=== PATIENT | female | born 1980 | race Caucasian/White ===

== ENCOUNTER 2022-10-05 14:59 | Outpatient (OUT) | payer OTHER, SELFPAY ==
--- NOTE | 2022-10-05 15:02 | MM_ITS ---
Patient: BLANCA BROWER. Exam Date: 10/05/2022 : 1980 Gender:F Ordering : DR Lauro York . Admission #: [id number] Family : Order #: [id number] CLICK HERE TO VIEW EXAM RADIOLOGY REPORT PROCEDURE: MM TOMOSYNTHESIS SCREENING BI COMPARISON: None. INDICATIONS: Screening mammogram Z12.31 Calculator Name NCI Breast Cancer Risk Assessment Tool 5 Year Breast Cancer Risk 1.10% Lifetime Breast Cancer Risk 19.30% Personal Breast Cancer No Personal Ovarian Cancer No Treatments None Family Cancers Mother with breast cancer at age 62. LOCATION: [facility] BREAST COMPOSITION: Heterogeneously dense,which may obscure small masses. FINDINGS: DIAGNOSTIC CATEGORY 1--NEGATIVE. Scattered benign-appearing calcifications are present. RIGHT BREAST: No significant suspicious finding. LEFT BREAST: No significant suspicious finding. RECOMMENDATIONS: ROUTINE MAMMOGRAM AND CLINICAL EVALUATION IN 12 MONTHS. PLEASE NOTE: A NORMAL MAMMOGRAM DOES NOT EXCLUDE THE POSSIBILITY OF BREAST CANCER. A CLINICALLY SUSPICIOUS PALPABLE LUMP SHOULD BE BIOPSIED. Dictated by: David Pugh MD on 10/06/2022 at 07:17 Approved by: David Pugh MD on 10/06/2022 at 07:19
--- NOTE | 2022-10-05 15:03 | XR_ITS ---
[address] [address] Patient Name: BLANCA BROWER MRN: [id number] date: 1980 Sex: F Assigned Patient Location: MAMMO Current Patient Location: MAMMO Accession/Order Number: [id number] Exam Date: 10/05/2022 15:24 Report Date: 10/05/2022 15:41 At the request of: DONITA GATES Procedure: XR knee LT 3V EXAM: XR knee LT 3V HISTORY: Left knee chronic pain M25.562 COMPARISON: None. XR/XR knee LT 3V IMPRESSION: 1. No acute fracture or malalignment. 2. Tiny patellar osteophyte. Mild narrowing of the medial femoral tibial compartment with tiny osteophytes. 3. No articular erosions. 4. No joint effusion. Electronically authenticated by: CHANTAL CAMPBELL Date: 10/05/2022 15:41
[2022-10-05 15:51] LABS: Estimated Average Glucose 148 mg/dL; Glycohemoglobin A1C 6.8 % (4.5-6.2)
[2022-10-05 16:10] LABS: Microalbumin Urine Random <1.3 mg/dL (<=30.0)
== END 2022-10-05 15:00 | disposition home or self-care (01) ==
LOC: MAMMO 14:59
PROVIDERS: PCP Family Medicine; Visit Provider Family Medicine
DX: E11.65 Type 2 diabetes mellitus with hyperglycemia (principal); Z79.4 Long term (current) use of insulin; Z12.31 Encounter for screening mammogram for malignant neoplasm of breast; Z80.3 Family history of malignant neoplasm of breast; M25.562 Pain in left knee
CPT/HCPCS: 36415; 73562; 77063; 77067; 82043; 83036

== ENCOUNTER 2023-05-11 12:46 | Outpatient (OUT) | payer OTHER, SELFPAY ==
[2023-05-11 13:15] LABS: Basophils Percent Auto 0.8 % (0.2-2.0); Eosinophils Absolute Auto 0.1 10^3/uL (0.0-0.7); Eosinophils Percent Auto 1.7 % (0.9-7.0); Hematocrit 38.3 % (36.0-48.0); Hemoglobin 13.4 g/dL (12.0-16.0); Immature Granulocytes Abs Auto 0.01 10^3/uL (0.00-0.03); Immature Granulocytes Pct Auto 0.3 % (0.0-0.5); Lymphocytes Absolute Auto 1.5 10^3/uL (1.2-3.8); Lymphocytes Percent Auto 40.8 % (20.5-60.0); Mean Corpuscular Hemoglobin 27.9 pg (26.7-34.0); Mean Corpuscular Volume 79.6 fL (81.0-99.0); Mean Platelet Volume 8.9 fL (9.5-13.5); Monocytes Absolute Auto 0.4 10^3/uL (0.3-0.8); Monocytes Percent Auto 10.7 % (1.7-12.0); Neutrophils Absolute Auto 1.6 10^3/uL (1.4-6.5); Neutrophils Percent Auto 45.7 % (43.0-75.0); Platelet Count 220 10^3/uL (150-450); Red Blood Count 4.81 10^6/uL (4.20-5.40); Red Cell Distribution Width 12.7 % (11.0-15.0); White Blood Count 3.6 10^3/uL (4.0-11.0)
[2023-05-11 13:43] LABS: Estimated Average Glucose 223 mg/dL; Glycohemoglobin A1C 9.4 % (4.5-6.2)
[2023-05-11 14:51] LABS: Alanine Aminotransferase 43 U/L (14-59); Albumin Globulin Ratio 1.1; Albumin Level 3.7 g/dL (3.4-5.0); Alkaline Phosphatase 50 U/L (46-116); Anion Gap 15.1; Aspartate Amino Transferase 24 U/L (15-37); BUN Creatinine Ratio 18.9; Bilirubin Direct 0.1 mg/dL (0.0-0.2); Bilirubin Total 0.6 mg/dL (0.2-1.0); Calcium 9.3 mg/dL (8.5-10.1); Carbon Dioxide 25.1 mmol/L (21.0-32.0); Chloride 101 mmol/L (98-107); Chol HDL Ratio 5.8; Cholesterol 227 mg/dL (<=200); Estimated GFR (African America >60 (>=60); Estimated GFR (Non-African Ame >60 (>=60); Globulin 3.3 g/dL; Glucose 233 mg/dL (74-106); HDL Cholesterol 39 mg/dL (40-60); Potassium 4.2 mmol/L (3.5-5.1); Sodium 137 mmol/L (136-145); Thyroid Stimulating Hormone 2.492 uIU/mL (0.358-3.740); Triglycerides 398 mg/dL (<=150); VLDL CHOLESTEROL 79.6 mg/dL
== END 2023-05-11 12:47 | disposition home or self-care (01) ==
LOC: LAB 12:46
PROVIDERS: PCP Family Medicine; Visit Provider Family Medicine
DX: Z00.00 Encounter for general adult medical examination without abnormal findings (principal)
CPT/HCPCS: 36415; 80048; 80061; 80076; 83036; 84443; 85025

== ENCOUNTER 2023-10-26 07:48 | Outpatient (OUT) | payer OTHER, SELFPAY ==
[2023-10-26 09:25] LABS: Microalbumin Urine Random 2.1 mg/dL (<=30.0)
[2023-10-26 10:17] LABS: Estimated Average Glucose 169 mg/dL; Glycohemoglobin A1C 7.5 % (4.5-6.2)
== END 2023-10-26 07:49 | disposition home or self-care (01) ==
LOC: LAB 07:48
PROVIDERS: PCP Family Medicine; Visit Provider Family Medicine
DX: E11.65 Type 2 diabetes mellitus with hyperglycemia (principal); Z79.4 Long term (current) use of insulin
CPT/HCPCS: 36415; 82043; 83036

== ENCOUNTER 2024-05-23 11:29 | Outpatient (OUT) | payer OTHER, SELFPAY ==
--- OUTSIDE RECORDS SUMMARY | 2024-05-23 11:34 | XMS_ITS | CCD ---
Author Organization [facility] Care Team Providers Care Pipeline Systems Operator Name Role Phone DAYSI DIETZ Unavailable Unavailable GURPREET, DAYSI Unavailable Unavailable Latisha Esqueda Unavailable Marsha Mendez Unavailable GURPREET ., DR TAVAREZ Admitting Unavailable GURPREET ., DR TAVAREZ Attending Unavailable REQUEST, DR PUENTE LISTED Primary Care Unavaila ble GURPREET ., DR TAVAREZ Consulting Unavailable GURPREET ., DR TAVAREZ Admitting Unavailable GURPREET ., DR TAVAREZ Attending Unavailable REQUEST, DR NONE LISTED Primary Care Unavaila ble GURPREET ., DR TAVAREZ Consulting Unavailable ZIEBER, DR LONG Collins Consulting Unavailable WEST, DR RUBI Comer Admitting Unavailable WEST, DR RUBI Comer Attending Unavailable NADERER, DR LAURO Trejo Primary Care Unavailable WEST, DR RUBI Comer Consulting Unavailable NADERER, DR LAURO Trejo Admitting Unavailable NADERER, DR LAURO Trejo Attending Unavailable NADERER, DR LAURO Trejo Primary Care Unavailable NADERER, DR LAURO Trejo Consulting Unavailable NADERER, DR LAURO Trejo Admitting Unavailable NADERER, DR LAURO Trejo Attending Unavailable NADERER, DR LAURO Trejo Primary Care Unavailable NADERER, DR LAURO Trejo Consulting Unavailable NADERER, DR LAURO Trejo Admitting Unavailable NADERER, DR LAURO Trejo Attending Unavailable NADERER, DR LAURO Trejo Primary Care Unavailable ZIEBER, DR LONG Collins Consulting Unavailable NADERER, DR LAURO Trejo Consulting Unavailable WEST, DR RUBI Comer Admitting Unavailable WEST, DR RUBI Comer Attending Unavailable NADERER, DR LAURO Trejo Primary Care Unavailable WEST, DR RUBI Comer Consulting Unavailable ZIEBER, DR LONG Collins Consulting Unavailable WEST, DR RUBI Comer Admitting Unavailable WEST, DR RUBI Comer Attending Unavailable NADERER, DR LAURO Trejo Primary Care Unavailable WEST, DR RUBI Comer Consulting Unavailable KARASIK ., DR HERNANDEZ Admitting Unavailabl e KARASIK ., DR HERNANDEZ Attending Unavailabl e KARASIK ., DR HERNANDEZ Consulting Unavailabl e REQUEST, DR NONE LISTED Primary Care Unavaila ble REQUEST, DR NONE LISTED Primary Care Unavaila ble KARASIK ., DR HERNANDEZ Admitting Unavailabl e KARASIK ., DR HERNANDEZ Attending Unavailabl e KARASIK ., DR HERNANDEZ Consulting Unavailabl e GURPREET ., DR TAVAREZ Consulting Unavailable ZIEBER, DR LONG Collins Consulting Unavailable GURPREET ., DR TAVAREZ Admitting Unavailable GURPREET ., DR TAVAREZ Attending Unavailable REQUEST, DR NONE LISTED Primary Care Unavaila ble GURPREET ., DR TAVAREZ Consulting Unavailable REQUEST, DR NONE LISTED Primary Care Unavaila ble GURPREET ., DR TAVAREZ Consulting Unavailable KARASIK ., DR HERNANDEZ Admitting Unavailabl e KARASIK ., DR HERNANDEZ Attending Unavailabl e ZIEBER, DR LONG Collins Consulting Unavailable REQUEST, DR NONE LISTED Primary Care Unavaila ble KARASIK ., DR HERNANDEZ Admitting Unavailabl e KARASIK ., DR HERNANDEZ Attending Unavailabl e KARASIK ., DR HERNANDEZ Consulting Unavailabl e GURPREET ., DR TAVAREZ Admitting Unavailable GURPREET ., DR TAVAREZ Attending Unavailable REQUEST, DR NONE LISTED Primary Care Unavaila ble WEST, DR RUBI Comer Consulting Unavailable GURPREET ., DR TAVAREZ Consulting Unavailable WEST, DR RUBI Comer Admitting Unavailable WEST, DR RUBI Comer Attending Unavailable NADERER, DR LAURO Trejo Primary Care Unavailable WEST, DR RUBI Comer Consulting Unavailable ZIEBER, DR LONG Collins Consulting Unavailable REQUEST, DR NONE LISTED Primary Care Unavaila ble LAMAR, SANCHEZ Admitting Unavailable LAMAR, SANCHEZ Attending Unavailable GURPREET ., DR TAVAREZ Admitting Unavailable GURPREET ., DR TAVAREZ Attending Unavailable REQUEST, DR NONE LISTED Primary Care Unavaila ble GURPREET ., DR TAVAREZ Consulting Unavailable ZIEBER, DR LONG Collins Consulting Unavailable GURPREET ., DR TAVAREZ Admitting Unavailable GURPREET ., DR TAVAREZ Attending Unavailable GURPREET ., DR TAVAREZ Primary Care Unavailable GURPREET ., DR TAVAREZ Consulting Unavailable GURPREET ., DR TAVAREZ Admitting Unavailable GURPREET ., DR TAVAREZ Attending Unavailable REQUEST, DR NONE LISTED Primary Care Unavaila ble WEST, DR RUBI Comer Consulting Unavailable GURPREET ., DR TAVAREZ Consulting Unavailable WEST, DR RUBI Comer Admitting Unavailable WEST, DR RUBI Comer Attending Unavailable NADEREDennis, DR LAURO Trejo Primary Care Unavailable WEST, DR RUBI Comer Consulting Unavailable WEST, DR RUBI Comer Admitting Unavailable WEST, DR RUBI Comer Attending Unavailable NADEREDennis, DR LAURO Trejo Primary Care Unavailable WEST, DR RUBI Comer Consulting Unavailable ZIEBER, DR LONG Collins Consulting Unavailable WEST, DR RUBI Comer Admitting Unavailable WEST, DR RUBI Comer Attending Unavailable KODY, DR LAURO Trejo Primary Care Unavailable WEST, DR RUBI Comer Consulting Unavailable KODY, DR LAURO Trejo Primary Care Unavailable REINECK, DR JOSE Crum Admitting Unavailabl e REINECK, DR JOSE Crum Attending Unavailabl e REINECK, DR JOSE Crum Consulting Unavailabl e WEST, DR RUBI Comer Consulting Unavailable GURPREET ., DR TAVAREZ Admitting Unavailable GURPREET ., DR TAVAREZ Attending Unavailable NADERER, DR LAURO Trejo Primary Care Unavailable GURPREET ., DR TAVAREZ Consulting Unavailable AGUBOSIM, KAR Consulting Unavailable GURPREET ., DR TAVAREZ Procedure Practitioner Unavail able GURPREET ., DR TAVAREZ Admitting Unavailable GURPREET ., DR TAVAREZ Attending Unavailable REQUEST, DR CINDI LISTED Primary Care Unavaila ble WEST, DR RUBI Comer Consulting Unavailable GURPREET ., DR TAVAREZ Consulting Unavailable WEST, DR RUBI Comer Admitting Unavailable WEST, DR RUBI Comer Attending Unavailable NADERER, DR LAURO Trejo Primary Care Unavailable WEST, DR RUBI Comer Consulting Unavailable Henrikr Lauro ARMSTRONG Primary Care Provider KODY, LAURO Attending Unavailable NADERER, LAURO Attending Unavailable NADERER, LAURO Attending Unavailable NADERER, LAURO Attending Unavailable Medications Current Medications Medication Drug Class(es) Dates Sig (Normalized) Sig (Original) [id number] 200 actuat albuterol 0.09 mg/actuat metered dose inhaler (2 sources) beta2-Adrenergic Agonist Start: 03-20-2023 take 1 puff(s) by inhalation four times daily Albuterol Sulfate Active 2 PUFF INHALATION Four times daily 8.5 March 20, 2023 12:00am Start: 11-04-2020 take 2 puff(s) by in halation every four hours as needed Albuterol Sulfate HFA 108 (90 Base) MCG/ACT 2 puffs as needed Inhalation every 4 hrs 30 Oct, 2020 Active amoxicillin 875 mg oral tablet (1 source) Penicillin-class Antibacterial Start: 11-04-2020 take 1 tablet by mouth every twelve hours Amoxicillin 875 MG 1 tablet Orally every 12 hrs for 7 days Oct, Active azithromycin 250 mg oral tablet (3 sources) Macrolide Antimicrobial Start: 03-20-2023 take 2 tablets by mouth once daily, then take 1 tablet by mouth once daily Azithromycin (Zithromax Z-Trevor) 250 mg tablet Active 250 MG PO Daily 6 5 March 20, 2023 12:00am take 2 tabs today and 1 daily for the next 4 days Start: 04-24-2022 Azithromycin 2 50 MG 2 tablet on the first day, then 1 tablet daily for 4 days Orally Once a day for 5 day(s) Apr, Active benzonatate 200 mg oral capsule (1 source) Non-narcotic Antitussive Start: 03-20-2023 Benzonatate Active 200 MG PO 2-3 TIMES PER DAY March 20, 2023 12:00am Calcium (1 source) Phosphate Binder, Calcium Calcium Active docosahexaenoic acid 144 mg / eicosapentaenoic acid 216 mg / vitamin e 2 unt oral capsule (1 source) Start: 03-20-2023 take 1 capsule by mouth once daily [place]-3 Fatty Acids-Fish Oil (Fish Oil) 360-1,200 mg capsule Active 1 CAP PO Daily March 20, 2023 12:00am Fish Oils (3 sources) Fish Oil Active glipiZIDE 10 mg oral tablet (9 sources) Sulfonylurea Start: 09-13-2023 take 2 tablets by mouth twice daily glipiZIDE (Glucotrol) 10 MG tablet Indications: Type 2 diabetes mellitus with hyperglycemia (CMS/HCC) TAKE 2 TABLETS BY MOUTH TWICE A DAY 360 tablet 3 09/13/2023 Active Start: 03-20-2023 take 10 mg by mouth once daily Glipizide Active 10 MG PO Daily March 20, 2023 12:00am 3 ml insulin aspart, human 100 unt/ml pen injector (2 sources) Insulin Analog NovoLOG FlexPen 100 UNIT/ML as directed Subcutaneous 20-30 units three times a day Active 3 ml insulin glargine 100 unt/ml pen injector (12 sources) Insulin Analog Start: 04-14-2024 insulin glargine (Lantus SoloStar) 100 UNIT/ML pen Indications: Type 2 diabetes mellitus with hyperglycemia (CMS/HCC) INJECT 40 UNITS UNDER THE SKIN IN THE MORNING. 45 mL 5 04/14/2024 Active Start: 05-14-2023 End: 04-14-2024 insulin glargine (Lantus Andreina oStar) 100 UNIT/ML pen Indications: Type 2 diabetes mellitus with hyperglycemia (CMS/HCC) Inject 50 Units under the skin Daily 5 each 5 05/14/2023 04/14/2024 Discontinued Start: 03-20-2023 Insulin Glargi ne (Basaglar Kwikpen U-100 Insulin) 100 unit/mL (3 mL) insulin pen Active UNIT SUBCUT March 20, 2023 12:00am FreeTextSig: as directed Subcutaneous 40 units a day; Note: Source Status: Taking; Provider: Royal Campos ( ) Basaglar KwikPen 100 UNIT/ML as directed Subcutaneous 40 units a day Active levoFLOXacin 750 mg oral tablet (2 sources) Quinolone Antimicrobial Start: 01-22-2024 End: 01-29-2024 take 1 tablet by mouth once daily levoFLOXacin (Levaquin) 750 MG tablet Indications: Acute bronchitis due to other specified organisms Take 1 tablet (750 mg) by mouth Daily for 7 days 7 tablet 01/22/2024 01/29/2024 Active metFORMIN hydrochloride 500 mg oral tablet (12 sources) Biguanide Start: 09-13-2023 take 2 tablets by mouth twice daily metFORMIN (Glucophage) 500 MG tablet Indications: Type 2 diabetes mellitus with hyperglycemia (CMS/HCC) TAKE 2 TABLETS BY MOUTH TWICE A DAY 360 tablet 3 09/13/2023 Active Start: 03-20-2023 take 500 mg by mouth twice daily at mealtime Metformin Active 500 MG PO Twice daily with meals March 20, 2023 12:00am take 1 tablet by aleah th every twelve hours metFORMIN HCl 1000 MG 1 tablet with meals Orally Twice a day for 30 day(s) Active methylPREDNISolone 4 mg oral tablet (1 source) Corticosteroid Start: 11-04-2020 methylPREDNISolone 4 MG as directed Orally Once a day for 6 days Oct, Active Multivitamin preparation (1 source) Start: 03-20-2023 take 1 tablet by mouth once daily Multivitamin Active 1 TAB PO Daily March 20, 2023 12:00am Multivitamins (3 sources) Multivitamins as directed Orally Active nabumetone 500 mg oral tablet (9 sources) Nonsteroidal Anti-inflammatory Drug Start: 03-16-2023 take 1 tablet by mouth twice daily nabumetone (Relafen) 500 MG tablet Indications: Pain in left knee , Pain in joint, lower leg TAKE 1 TABLET BY MOUTH TWICE A DAY 60 tablet 5 10/24/2023 Active NIFEdipine 60 mg osmotic 24 hr extended release oral tablet (11 sources) Dihydropyridine Calcium Channel Shan Start: 11-29-2023 take 1 tablet by mouth once daily NIFEdipine XL (Procardia XL) 60 MG 24 hr tablet Indications: Essential hypertension, benign (CMS/HCC) Take 1 tablet (60 mg) by mouth Daily Do not crush, chew, or split. 90 tablet 01/23/2024 Active Start: 09-17-2023 NIFEdipine XL (Procardia XL) 60 MG 24 hr tablet Indications: Essential hypertension, benign (CMS/HCC) TAKE 1 TABLET DAILY . DO NOT CRUSH, CHEW OR SPLIT 90 tablet 09/17/2023 Active Start: 03-20-2023 take 1 tablet by aleah th once daily Nifedipine Active 1 TAB PO Daily March 20, 2023 12:00am FreeTextSi tablet on an empty stomach Orally Once a day; Note: Source Status: Taking; Provider: Royal Campos ( ) take 1 tablet by aleah th every twenty-four hours NIFEdipine ER 30 MG 1 tablet on an empty stomach Orally Once a day Active oseltamivir 75 mg oral capsule (1 source) Neuraminidase Inhibitor Start: 04-15-2019 take 1 capsule by mouth every twelve hours Tamiflu 75 MG 1 capsule Orally Twice a day for 5 day(s) Apr, Active predniSONE 20 mg oral tablet (1 source) Start: 03-20-2023 take 20 mg by mouth twice daily Prednisone Active 20 MG PO Twice daily 10 March 20, 2023 12:00am Semaglutide, 2 MG/DOSE, (Ozempic, 2 MG/DOSE,) 8 MG/3ML solution pen-injector (3 sources) Start: 01-22-2024 inject 2 mg by subcutaneous injection every week Semaglutide, 2 MG/DOSE, (Ozempic, 2 MG/DOSE,) 8 MG/3ML solution pen-injector Indications: Type 2 diabetes mellitus with hyperglycemia, with long-term current use of insulin (CMS/HCC) Inject 2 mg under the skin 1 (one) time per week 3 mL 5 01/22/2024 Active SITagliptin 100 mg oral tablet (1 source) Dipeptidyl Peptidase 4 Inhibitor take 1 tablet by mouth every twenty-four hours Januvia 100 MG 1 tablet Orally Once a day for 30 day(s) Active vitamin B12 (1 source) Vitamin B12 Vitamin B12 Active Zinc (1 source) Zinc Active Completed/Discontinued Medications Medication Drug Class(es) Dates Sig (Normalized) Sig (Original) 0.25 mg, 0.5 mg dose 1.5 ml semaglutide 1.34 mg/ml pen injector (3 sources) Start: 08-02-2023 End: 10-23-2023 semaglutide (Ozempic, 0.25 or 0.5 MG/DOSE,) 2 MG/1.5ML solution pen-injector Indications: Type 2 diabetes mellitus with hyperglycemia, with long-term current use of insulin (CMS/HCC) 0.25 mg SC weekly x 4 weeks, then 0.5 mg weekly 1 each 08/02/2023 10/23/2023 Discontinued semaglutide (Ozempic, 1 MG/DOSE,) 4 MG/3ML solution pen-injector (6 sources) Start: 10-23-2023 End: 01-22-2024 inject 1 mg by subcutaneous injection every week semaglutide (Ozempic, 1 MG/DOSE,) 4 MG/3ML solution pen-injector Indications: Type 2 diabetes mellitus with hyperglycemia, with long-term current use of insulin (CMS/HCC) Inject 1 mg under the skin 1 (one) time per week 1 each 5 10/23/2023 01/22/2024 Discontinued Start: 10-23-2023 inject 1 mg by subcu taneous injection every week semaglutide (Ozempic, 1 MG/DOSE,) 4 MG/3ML solution pen-injector Indications: Type 2 diabetes mellitus with hyperglycemia, with long-term current use of insulin (CMS/HCC) Inject 1 mg under the skin 1 (one) time per week 1 each 5 10/23/2023 Active Problems Active Problems Problem Classification Problem Date Documented Da te Episodic/Chronic Acute bronchitis (5 sources) Acute infective bronchitis; Translations: [Acute bronchitis due to other specified organisms] Onset: 01-22-2024 01-22-2024 Episodic Chronic obstructive pulmonary disease and bronchiectasis (4 sources) Bronchitis; Translations: [Bronchitis, not specified as acute or chronic] Onset: 11-04-2020 Resolved: 11-04-2020 Episodic Diabetes mellitus with complications (17 sources) Type 2 diabetes mellitus with hyperglycemia; Translations: [Hyperglycemia due to type 2 diabetes mellitus] Onset: 12-05-2021 Chronic Diabetes mellitus without complication (4 sources) Type 2 diabetes mellitus without complication; Translations: [Diabetes mellitus without mention of complication, type II or unspecified, not stated as uncontrolled] 03-20-2023 Chronic Diabetes or abnormal glucose tolerance complicating ; childbirth; or the puerperium (5 sources) Unspecified pre-existing diabetes mellitus in childbirth; Translations: [Pre-existing type 2 diabetes mellitus, in , third trimester] Onset: 08-19-2021 Chronic Disorders of lipid metabolism (12 sources) Mixed hyperlipidemia; Translations: [Hyperlipidemia, mixed] Onset: 03-27-2023 03-20-2023 Chronic Esophageal disorders (9 sources) Gastro-esophageal reflux disease without esophagitis; Translations: [Gastroesophageal reflux disease] Onset: 09-26-2021 03-27-2023 Chronic Essential hypertension (16 sources) Hypertensive disorder; Translations: [Hypertension, unspecified] Onset: 03-27-2023 03-20-2023 Chronic Hypertension complicating ; childbirth and the puerperium (3 sources) Unspecified pre-existing hypertension complicating , third trimester; Translations: [Unspecified maternal hypertension, complicating childbirth] Onset: 09-12-2021 Chronic Immunity disorders (2 sources) Secondary immune deficiency disorder; Translations: [Immunodeficiency due to conditions classified elsewhere ([facility])] 10-23-2023 Chronic Other complications of ; puerperium affecting management of mother (1 source) Obesity complicating childbirth; Translations: [OBESITY COMPLICATING CHILDBIRTH] Onset: 09-26-2021 Chronic Other nutritional; endocrine; and metabolic disorders (1 source) Morbid (severe) obesity due to excess calories; Translations: [MORBID SEVERE OBES D/T EXCESS DANIELA] Onset: 09-26-2021 Chronic Other nutritional; endocrine; and metabolic disorders (5 sources) Morbid obesity; Translations: [Morbid (severe) obesity due to excess calories] Onset: 03-27-2023 03-27-2023 Chronic Other nutritional; endocrine; and metabolic disorders (5 sources) Severe obesity; Translations: [Class 3 severe obesity due to excess calories with serious comorbidity and body mass index (BMI) of 45.0 to 49.9 in adult ([facility])] Onset: 03-27-2023 01-22-2024 Chronic Other upper respiratory infections (1 source) Acute pharyngitis, unspecified Episodic Otitis media and related conditions (3 sources) Otitis media, unspecified, left ear; Translations: [Otitis media, unspecified, right ear] Onset: 11-04-2020 Resolved: 11-04-2020 Episodic Unclassified (1 source) CONTACT W/AND (SUSP) EXPOS COVID-19; Translations: [CONTACT W/AND (SUSP) EXPOS COVID-19] Onset: 09-26-2021 Varicose veins of lower extremity (4 sources) Varicose veins of bilateral lower extremities with pain; Translations: [VARICOSE VNS TAO LOW EXTREM W/PAIN] Onset: 04-26-2022 Episodic Past or Other Problems Problem Classification Problem Date Documented Da te Episodic/Chronic Diabetes or abnormal glucose tolerance complicating ; childbirth; or the puerperium (8 sources) Gestational diabetes mellitus in , insulin controlled; Translations: [Gestational diabetes mellitus in , unspecified control] Onset: 2 Episodic Immunizations and screening for infectious disease (3 sources) Contact with and (suspected) exposure to other viral communicable diseases; Translations: [Encounter for screening for human papillomavirus (HPV)] Onset: 1 Resolved: 1 Episodic Malposition; malpresentation (1 source) Maternal care for high head at term, not applicable or unspecified; Translations: [MATERNAL CARE HIGH HEAD TERM NA/UNS] Onset: 2 Episodic Other aftercare (1 source) snf (current) use of insulin; Translations: [CUSTODIAL CURRENT USE OF INSULIN] Onset: 2 Episodic Other aftercare (1 source) Other correction (current) drug therapy; Translations: [OTH CUSTODIAL CURRENT DRUG THERAPY] Onset: 2 Episodic Other complications of ; puerperium affecting management of mother (1 source) Diseases of the digestive system complicating childbirth; Translations: [DZ DIGESTIVE SYSTEM COMP CHILDBIRTH] Onset: 2 Episodic Other complications of ; puerperium affecting management of mother (1 source) Streptococcus B carrier state complicating childbirth; Translations: [STREP B EUCEDA STATE COMP CHILDBIRTH] Onset: 2 Episodic Other complications of (1 source) Maternal care for excessive growth, third trimester, not applicable or unspecified; Translations: [MAT CARE EXCSS FTL GRTH 3RD TRI UNS] Onset: 2 Episodic Other connective tissue disease (3 sources) Other specified soft tissue disorders; Translations: [OTHER SPEC SOFT TISSUE DISORDERS] Onset: 2 Episodic Other female genital disorders (1 source) Other specified noninflammatory disorders of vagina; Translations: [OTH SPEC NONINFLAMMATORY D/O VAGINA] Onset: 2 Episodic Other non-traumatic joint disorders (8 sources) Pain in left knee; Translations: [Pain in joint, lower leg] Onset: 4 03-27-2023 Episodic Other and delivery including normal (1 source) Single live ; Translations: [SINGLE LIVE ] Onset: 2 Episodic Other screening for suspected conditions (not mental disorders or infectious disease) (8 sources) Encounter for screening for Streptococcus B; Translations: [Encounter for screening for malignant neoplasm of cervix] Onset: 2 Episodic Phlebitis; thrombophlebitis and thromboembolism (20 sources) Phlebitis and thrombophlebitis of superficial vessels of lower extremities, bilateral; Translations: [Phlebitis and thrombophlebitis of superficial vessels of right lower extremity] Onset: 3 Episodic Polyhydramnios and other problems of amniotic cavity (1 source) Polyhydramnios, third trimester, not applicable or unspecified; Translations: [POLYHYDRAMNIOS THIRD TRI NA/UNS] Onset: 2 Episodic Residual codes; unclassified (4 sources) Localized edema; Translations: [LOCALIZED EDEMA] Onset: 2 Episodic Residual codes; unclassified (1 source) 37 weeks gestation of ; Translations: [37 WEEKS GESTATION OF ] Onset: 2 Episodic Residual codes; unclassified (1 source) 36 weeks gestation of ; Translations: [36 WEEKS GESTATION OF ] Onset: 2 Episodic Residual codes; unclassified (1 source) 35 weeks gestation of ; Translations: [35 WEEKS GESTATION OF ] Onset: 2 Episodic Residual codes; unclassified (1 source) 34 weeks gestation of ; Translations: [34 WEEKS GESTATION OF ] Onset: 2 Episodic Residual codes; unclassified (1 source) 33 weeks gestation of ; Translations: [33 WEEKS GESTATION OF ] Onset: 2 Episodic Residual codes; unclassified (1 source) 32 weeks gestation of ; Translations: [32 WEEKS GESTATION OF ] Onset: 2 Episodic Residual codes; unclassified (1 source) 31 weeks gestation of ; Translations: [31 WEEKS GESTATION OF ] Onset: 2 Episodic Residual codes; unclassified (8 sources) Bilateral lower limb edema; Translations: [Localized edema] Onset: 4 03-27-2023 Episodic Results Test Name Value Interpretation Reference Range Facility [facility] MICROALBUMIN, RAND URon 10-26-2023 MICROALBUMIN URINE RANDOM 2.1 mg/dL NINF - 30.0 mg/dL [facility] VC CONSULT FOLLOWUP Patient: MICKIE BRENNAN Exam Date: 05/01/2022 : 1980 Gender:F Ordering : DR RUBI JACKSON M.D. Admission #: [id number] Family : Order #: [id number] CLICK HERE TO VIEW EXAM RADIOLOGY REPORT PROCEDURE: VEIN CENTER CONSULTATION FOLLOWUP VEIN CENTER - OFFICE VISIT FOLLOW UP COMPARISON: VC CONSULT FOLLOWUP, 04/12/2022. PROGRESS NOTES: The patient reports improvement in leg symptoms. There has been interval reduction in varicosities. The patient has followed our recommendations to walk 20-30 minutes once or twice per day since the procedure. Physical exam demonstrates marked decrease in the previously seen varicosities of the right and left leg. No persistent varicosities are identified along the right or left leg. Review of the ultrasound performed the same day demonstrates occlusive thrombus extending throughout the treated vein, see separate report, consistent with a successful ablation. No thrombus extending into or beyond the saphenofemoral junction. No significant remaining dilated veins. No further treatment will be provided at this time. Patient will follow-up as needed. IMPRESSION: 1. Successful ablation of the treated branch saphenous veins PLAN: No further treatment at this time. Patient will follow-up in the future as needed. Nurse notes, history and physical were reviewed and confirmed, see attached forms. The nurse was present throughout the physical exam and consultation Dictated by: Long Pierre M.D. on 05/01/2022 at 15:13 Approved by: Long Pierre M.D. on 05/01/2022 at 15:15 Normal [facility] VC EXT VENOUS TAO LIMITEDon 05-01-2022 VC EXT VENOUS TAO LIMITED Patient: MICKIE BRENNAN. Exam Date: 05/01/2022 : 1980 Gender:F Ordering : DR RUBI JACKSON M.D. Admission #: [id number] Family : Order #: [id number] CLICK HERE TO VIEW EXAM RADIOLOGY REPORT PROCEDURE: VEIN CENTER EXTREMITY VENOUS BILATERAL LIMITED COMPARISON: None. INDICATIONS: Phlebitis and thrombophlebitis of superficial veins of bilateral lower extremities I80.03 TECHNIQUE: Lower extremity raman scale and Duplex Doppler evaluation of the deep venous system from the inguinal ligament through the calf veins. FINDINGS: REGION: Right lower extremity. THROMBI: None. COMPRESSIBILITY: Normal compressibility. FLOW: Areas on no flow. OTHER: Patent varicose vein mid posterior calf measures 2.8 mm. REGION: Left lower extremity. THROMBI: Acute occlusive thrombus. Chemically induced thrombus in multiple varicose veins in left leg. Thrombus extends into lumber tailer mid lower leg 2.5 cm from PTV. COMPRESSIBILITY: Non-compressible segments. FLOW: Areas on no flow. OTHER: Patent varicose vein proximal posterior calf measures 2.6 mm. Varicosity mid posterior calf measures 3.2 mm. Distal anterior thigh varicose vein measures 3.9 mm. CONCLUSION: 1. Clearing of previously seen thrombus within right posterior tibial veins. 2. Successful occlusion of treated branch saphenous varicosities within left leg. 3. No significant remaining dilated/incompetent varicose veins. Dictated by: Long Pierre M.D. on 05/01/2022 at 15:10 Approved by: Long Pierre M.D. on 05/01/2022 at 15:13 Normal [facility] VC INJ FOAM SCLERO W US MLTI on 04-26-2022 VC INJ FOAM SCLERO W US MLTI Patient: MICKIE BRENNAN Exam Date: 04/26/2022 : 1980 Gender:F Ordering : DR RUBI JACKSON M.D. Admission #: [id number] Family : Order #: [id number] CLICK HERE TO VIEW EXAM RADIOLOGY REPORT PROCEDURE: VEIN CENTER INJECTION FOAM SCLEROSING SOLUTION WITH ULTRASOUND MULTIPLE VEINS COMPARISON: VC INJ FOAM SCLERO W US MLTI, 04/06/2022. Pre-operative Diagnosis: CEAP class C3 venous insufficiency with pain, tenderness, edema and incompetent left great saphenous vein and varicose veins, chronic venous insufficiency left leg secondary to venous incompetence Post-operative Diagnosis: CEAP class C3 venous insufficiency with pain, tenderness, edema and incompetent left great saphenous vein and varicose veins, chronic venous insufficiency left leg secondary to venous incompetence Procedure Performed: 1. Ultrasound-guided microfoam chemical ablation with Varithena(r) 2. Intraoperative ultrasound guidance Physician: Rubi Jackson M.D. Anesthesia: None Indications for Procedure: 41-year-old female presents with a 1 year history of lower extremity pain swelling and itching. The patient failed conservative medical therapy including medical compression stockings, exercise and analgesics. Prior procedures include intravenous laser ablation. Multiple incompetent varicosities of the left leg. Duplex scan showed reflux and enlarged diameters up to 7 mm. The patient underwent informed consent including management options where the complications of infection, bleeding, pain, and skin injury were discussed. Particular attention was spent discussing thrombus extension and deep vein thrombosis as well as the possibility of pulmonary embolus and treatment with oral or injectable blood thinners. Procedure: The patient walked to the procedure room. All applicable staff donned appropriate apparel. A procedure timeout was performed to confirm correct patient, correct extremity, correct procedure, and correct room set-up including presence of all applicable supplies, devices, and drugs. A duplex ultrasound, performed by myself confirmed the location and incompetence of left leg varicose veins and their course marked on the skin together with the dilated tributaries. The extent of treatment of the vein and the associated varicosities was determined through ultrasound mapping. The patient was placed on the operating room table. The limb was prepped. The skin was punctured with a butterfly needle through the skin with the venous access needle and advanced under ultrasound guidance. The target limb was positioned at 45 degrees of elevation in relation to the torso using a foam pad. The Varithena(r) canister was previously activated and the canister was primed and purged as required in the instructions for use. The following injections were made 5 mL aliquot of Varithena(r) was drawn into a sterile syringe. Injection into a 4 mm varicose vein distal left medial lower leg 4 mL aliquot of Varithena(r) was drawn into a sterile syringe. Injection into a 4 mm varicose vein distal left lateral lower leg 6 mL aliquot of Varithena(r) was drawn into a sterile syringe. Injection into a 7 mm varicose vein distal medial left thigh Varithena(r) was slowly administered at 0.5-1.0 cc/second with close observation by ultrasound of its course in the injected veins. A total volume of 15 mL of Varithena(r) was used. During administration of Varithena(r), the patient was asked to dorsiflex the ankle to limit flow of Varithena(r) into perforating veins. Once appropriate spasm had been confirmed in the treated veins, the vascular catheter was removed from the leg and light pressure was applied over the puncture site for hemostasis The common femoral and deep superficial veins were then evaluated for flow and compressibility prior to dressing placement. The lower extremity was kept elevated at 45 degrees above the horizontal and cording material was applied over the saphenous segments and tributaries to allow for eccentric compression over the target vessels including the targeted saphenous vein(s). A multilayer dressing was applied consisting of foam pads, coban and thigh-high 20-30 mm Hg compression elastic support hose were placed on the patient. The leg was lowered only after compression had been applied and the patient was immediately ambulatory. The patient ambulated 10 minutes under supervision and was without apparent concerns at time of release Post-care instructions include advising patient to keep post-treatment bandages in place and dry for 48 hours, avoid extended periods of inactivity, avoid heavy exercise for one week, wear compression stockings on the treated leg continuously for two weeks, to walk daily for 10 minutes over the next month. The patient was instructed to take an anti-inflammatory medicine as needed and to follow up for color duplex scan of the GSV, the treated (more content not included)... Normal [facility] CBC AUTO DIFFon 04-20-2022 BASO # 0.1 103/ul Normal 0.0-0.1 [facility] Comment on above: Performed By: #### C BC ####[facility] [address] [place], [place] [address]Dr. Forrest Carrillo Basophils/100 WBC (Bld) 0.6 % Normal 0.2-2.0 [facility] Comment on above: Performed By: #### C BC ####[facility] [address] [place], [place] [address]Dr. Forrest Carrillo EO # 0.2 103/ul Normal 0.0-0.7 [facility] Comment on above: Performed By: #### C BC ####[facility] [address] [place], [place] [address]Dr. Forrest Carrillo Eosinophils/100 WBC (Bld) 2.1 % Normal 0.9-7.0 [facility] Comment on above: Performed By: #### C BC ####[facility] [address] [place], [place] [address]Dr. Forrest Carrillo Erythrocyte distribution width (RBC) [Ratio] 15.7 % Critically high 11.0-15.0 [facility] Comment on above: Performed By: #### C BC ####[facility] [address] [place], [place] [address]Dr. Forrest Carrillo Hematocrit (Bld) [Volume fraction] 37.6 % Normal 36.0-48.0 [facility] Comment on above: Performed By: #### C BC ####[facility] [address] [place], [place] [address]Dr. Forrest Carrillo Hemoglobin (Bld) [Mass/Vol] 12.8 g/dL Normal 12.0-16.0 [facility] Comment on above: Performed By: #### C BC ####[facility] [address] [place], [place] [address]Dr. Forrest Carrillo IG # 0.02 10e3/ul Normal 0.00-0.03 [facility] Comment on above: Performed By: #### C BC ####[facility] [address] [place] [address]Dr. Kaelajuliet Carrillo IG % 0.2 % Normal 0.0-0.5 [facility] Comment on above: Performed By: #### C BC ####[facility] [address] [address]DrKatlin Forrest Gerardo LYMPH # 2.2 103/ul Normal 1.2-3.8 [facility] Comment on above: Performed By: #### C BC ####[facility] [address] [place] [address]DrKatlin Kaelajuliet Carrillo Lymphocytes/100 WBC (Bld) 26.8 % Normal 20.5-60.0 [facility] Comment on above: Performed By: #### C BC ####[facility] [address] [place], [place] [address]DrKatlin Kaelajuliet Carrillo MANUAL DIFF REQ NO Normal [facility] Comment on above: Performed By: #### C BC ####[facility] [address] [place] [address]Dr. Forrest Gerardo MCH (RBC) [Entitic mass] 24.8 pg Critically low 26.7-34.0 [facility] Comment on above: Performed By: #### C BC ####[facility] [address] [place], [place] [address]Dr. Forrest Gerardo MCHC (RBC) [Mass/Vol] 34.0 g/dL Normal 29.9-35.2 [facility] Comment on above: Performed By: #### C BC ####[facility] [address] [place], [place] [address]DrKatlin Forrest Gerardo MCV (RBC) [Entitic vol] 72.7 fL Critically low 81.0-99.0 [facility] Comment on above: Performed By: #### C BC ####[facility] [address] [place] [address]DrKatlin Carrillo MONO # 0.5 103/ul Normal 0.3-0.8 [facility] Comment on above: Performed By: #### C BC ####[facility] [address] [place] [id number]. Forrest Carrillo Monocytes/100 WBC (Bld) 6.2 % Normal 1.7-12.0 [facility] Comment on above: Performed By: #### C BC ####[facility] [address] [place] [id number]. Forrest Carrillo NEUT # 5.2 103/ul Normal 1.4-6.5 [facility] Comment on above: Performed By: #### C BC ####[facility] [address] [place] [address]Dr. Forrest Carrillo Neutrophils/100 WBC (Bld) 64.1 % Normal 43.0-75.0 [facility] Comment on above: Performed By: #### C BC ####[facility] [address] [place] [address]Dr. Forrest Carrillo Platelet mean volume (Bld) [Entitic vol] 8.2 fL Critically low 9.5-13.5 [facility] Comment on above: Performed By: #### C BC ####[facility] [address] [place] [id number]. Forrest Carrillo PLT 276 103/ul Normal 150-450 [facility] Comment on above: Performed By: #### C BC ####[facility] [address] [place] [id number]. Forrest Carrillo RBC 5.17 106/ul Normal 4.20-5.40 [facility] Comment on above: Performed By: #### C BC ####[facility] [address] [place] [id number]. Forrest Carrillo WBC 8.1 103/ul Normal 4.0-11.0 [facility] Comment on above: Performed By: #### C BC ####[facility] [address] [place] [id number]. Forrest Carrillo GLYCOHEMOGLOBIN A1Con 2022 ADA RECOMMENDATION SEE BELOW Normal [facility] Comment on above: Result Comment: ADA RECOMMENDED LIMIT 4.0 - 6.0 ADA THERAPEUTIC TARGET < 7.0 ACTION SUGGESTED > 7.0 Performed By: #### P OCGLUC #### [facility] [address] [address] [address] Forrest Carrillo Glucose [Mass/Vol] 214 mg/dL Normal [facility] Comment on above: Performed By: #### P OCGLUC #### [facility] [address] [address] [address] Forrest Carrillo HbA1c (Bld) [Mass fraction] 9.1 % Critically high 4.5-6.2 [facility] Comment on above: Performed By: #### P OCGLUC #### [facility] [address] [address] [address] Forrest Carrillo LIPID PROFILEon 04-20-2022 CHOL-HDL RATIO NORM SEE BELOW Normal [facility] Comment on above: Result Comment: 3.3 - 4.4 LOW RISK 4.4 - 7.1 AVERAGE RISK 7.1 - 11.0 MODERATE RISK >11.0 HIGH RISK Performed By: #### P OCGLUC #### [facility] [address] [address] [address] Forrest Carrillo Cholesterol [Mass/Vol] 250 mg/dL Critically high <=200 [facility] Comment on above: Performed By: #### P OCGLUC #### [facility] [address] [address] [address] Forrest Carrillo Cholesterol in HDL [Mass/Vol] 43 mg/dL Normal 40-60 [facility] Comment on above: Performed By: #### P OCGLUC #### [facility] [address] [address] [address] Forrest Carrillo Cholesterol in LDL [Mass/Vol] 165.6 mg/dL Normal [facility] Comment on above: Performed By: #### P OCGLUC #### [facility] [address] [address] [address] Forrest Carrillo Cholesterol.total/Ch olesterol in HDL [Mass ratio] 5.8 {ratio} Normal [facility] Comment on above: Performed By: #### P OCGLUC #### [facility] [address] [address] [address] Forrest Carrillo HDL NORMAL > or = 60 mg/dl - LOW CARDIOVASCULAR RISK <40 mg/dl - HIGH CARDIOVASCULAR RISK Normal [facility] Comment on above: Performed By: #### P OCGLUC #### [facility] [address] [address] [address] Forrest Carrillo LDL CALC NORMAL SEE BELOW Normal [facility] Comment on above: Result Comment: <100 mg/dl OPTIMAL 100 - 129 mg/dl NEAR OR ABOVE OPTIMAL 130 - 159 mg/dl BORDERLINE HIGH 160 - 189 mg/dl HIGH >190 mg/dl VERY HIGH Performed By: #### P OCGLUC #### [facility] [address] [address] [address] Forrest Carrillo Triglyceride [Mass/Vol] 207 mg/dL Critically high <=150 [facility] Comment on above: Performed By: #### P OCGLUC #### [facility] [address] [address] [address] Forrest Carrillo VLDL CALC 41.4 mg/dL Normal [facility] Comment on above: Performed By: #### P OCGLUC #### [facility] [address] [address] [address] Forrest Carrillo LIVER PROFILEon 04-20-2022 Albumin [Mass/Vol] 3.5 g/dL Normal 3.4-5.0 [facility] Comment on above: Performed By: #### P OCGLUC #### [facility] [address] [address] [address] Forrest Carrillo Albumin/Globulin [Mass ratio] 1.0 {ratio} Normal [facility] Comment on above: Performed By: #### P OCGLUC #### [facility] [address] [address] [address] Forrest Carrillo ALP [Catalytic activity/Vol] 56 U/L Normal 46-116 [facility] Comment on above: Performed By: #### P OCGLUC #### [facility] [address] [address] [address] Forrest Carrillo ALT [Catalytic activity/Vol] 22 U/L Normal 14-59 [facility] Comment on above: Performed By: #### P OCGLUC #### [facility] [address] [address] [address] Forrest Carrillo AST [Catalytic activity/Vol] 13 U/L Critically low 15-37 [facility] Comment on above: Performed By: #### P OCGLUC #### [facility] [address] [address] [address] Forrest Carrillo BILI, CONJUGATED 0.1 mg/dL Normal 0.0-0.2 [facility] Comment on above: Performed By: #### P OCGLUC #### [facility] [address] [address] [address] Forrest Carrillo Bilirubin [Mass/Vol] 0.4 mg/dL Normal 0.2-1.0 [facility] Comment on above: Performed By: #### P OCGLUC #### [facility] [address] [address] [address] Forrest Carrillo Globulin (S) [Mass/Vol] 3.4 g/dL Normal [facility] Comment on above: Performed By: #### P OCGLUC #### [facility] [address] [address] [address] Forrest Carrillo Protein [Mass/Vol] 6.9 g/dL Normal 6.4-8.2 [facility] Comment on above: Performed By: #### P OCGLUC #### [facility] [address] [address] [address] Forrest Carrillo PROF CHEM 8 (BAS METB)on Anion gap [Moles/Vol] 9.3 mmol/L Normal [facility] Comment on above: Performed By: #### P OCGLUC #### [facility] [address] [place] [address] Dr. Forrest Carrillo Calcium [Mass/Vol] 8.4 mg/dL Critically low 8.5-10.1 [facility] Comment on above: Performed By: #### P OCGLUC #### [facility] [address] [place] [address] Dr. Forrest Carrillo Chloride [Moles/Vol] 101 mmol/L Normal 98-107 [facility] Comment on above: Performed By: #### P OCGLUC #### [facility] [address] [address] [address] Forrest Carrillo CO2 [Moles/Vol] 27.4 mmol/L Normal 21.0-32.0 [facility] Comment on above: Performed By: #### P OCGLUC #### [facility] [address] [address] [address] Forrest Carrillo Creatinine [Mass/Vol] 0.69 mg/dL Normal 0.55-1.02 [facility] Comment on above: Performed By: #### P OCGLUC #### [facility] [address] [address] [address] Forrest Carrillo EGFR-AF PALESTINIAN >60 Normal >=60 [facility] Comment on above: Performed By: #### P OCGLUC #### [facility] [address] [address] [address] Forrest Carrillo EGFR-NON AF PALESTINIAN >60 Normal >=60 [facility] Comment on above: Performed By: #### P OCGLUC #### [facility] [address] [address] [address] Forrest Carrillo Glucose [Mass/Vol] 162 mg/dL Critically high 74-106 [facility] Comment on above: Performed By: #### P OCGLUC #### [facility] [address] [address] [address] Forrest Carrillo Potassium [Moles/Vol] 3.7 mmol/L Normal 3.5-5.1 [facility] Comment on above: Performed By: #### P OCGLUC #### [facility] [address] [address] [address] Forrest Carrillo Sodium [Moles/Vol] 134 mmol/L Critically low 136-145 [facility] Comment on above: Performed By: #### P OCGLUC #### [facility] [address] [address] [address] Forrest Carrillo Urea nitrogen [Mass/Vol] 21.0 mg/dL Critically high 7.0-18.0 [facility] Comment on above: Performed By: #### P OCGLUC #### [facility] [address] [address] [address] Forrest Carrillo Urea nitrogen/Creatinine [Mass ratio] 30.4 mg/mg Normal [facility] Comment on above: Performed By: #### P OCGLUC #### [facility] [address] [address] [address] Forrest Carrillo TSHon 04-20-2022 TSH 2.018 uIU/mL Normal 0.358-3.740 [facility] Comment on above: Performed By: #### P OCGLUC #### [facility] [address] [address] [address] Forrest Carrillo Quick Strepon 04-15-2022 S. pyogenes Org specific cx Ql (Throat) Negative [facility] [employer] Other Quick Strep [facility] [employer] Other VC CONSULT FOLLOWUPon 2022 VC CONSULT FOLLOWUP Patient: MICKIE BRENNAN Exam Date: 04/12/2022 : 1980 Gender:F Ordering : DR RUBI JACKSON M.D. Admission #: [id number] Family : Order #: [id number] CLICK HERE TO VIEW EXAM RADIOLOGY REPORT PROCEDURE: VEIN CENTER CONSULTATION FOLLOWUP VEIN CENTER - OFFICE VISIT FOLLOW UP COMPARISON: VC CONSULT FOLLOWUP, 03/23/2022. PROGRESS NOTES: The patient reports improvement in right leg symptoms. There has been interval reduction in varicosities. The patient has followed our recommendations to walk 20-30 minutes once or twice per day since the procedure. Physical exam demonstrates decrease in varicosities of the right leg. Persistent varicosities are identified along the legs bilaterally. Review of the ultrasound performed the same day demonstrates occlusive thrombus extending throughout the treated veins, see separate report, consistent with a successful ablation. 13 cm segment of thrombus within 1 of the posterior tibial veins. The patient expressed a desire to proceed with treatment of remaining incompetent branch saphenous varicosities. The patient was informed that treatment was a process and would require several procedures/sessions. IMPRESSION: 1. Successful ablation of the treated branch saphenous varicosities within right leg. 2. Persistent incompetent branch saphenous veins and lower extremity symptoms 3. Chemically induced thrombus within 1 of the posterior tibial veins. PLAN: 1. Patient is being placed on 04/13 25 mg aspirin once per day for 14 days with follow-up ultrasound to document clearing versus stability of the right posterior tibial vein thrombus. 2. Planned microfoam chemical ablation of incompetent branch saphenous varicosities within left leg. Nurse notes, history and physical were reviewed and confirmed, see attached forms. The nurse was present throughout the physical exam and consultation Dictated by: Long Pierre M.D. on 04/12/2022 at 14:24 Approved by: Long Pierre M.D. on 04/12/2022 at 14:27 [facility] VC EXT VENOUS RT LIMITEDon 0 04-12-2022 VC EXT VENOUS RT LIMITED Patient: MICKIE BRENNAN Exam Date: 04/12/2022 : 1980 Gender:F Ordering : DR RUBI JACKSON M.D. Admission #: [id number] Family : Order #: [id number] CLICK HERE TO VIEW EXAM RADIOLOGY REPORT PROCEDURE: VEIN CENTER EXTREMITY VENOUS RIGHT LIMITED COMPARISON: VC EXT VENOUS RT LIMITED, 03/08/2022. INDICATIONS: Phlebitis and thrombophlebitis of superficial veins of right lower extremity I80.01 TECHNIQUE: Lower extremity raman scale and Duplex Doppler evaluation of the deep venous system from the inguinal ligament through the calf veins. FINDINGS: REGION: Right lower extremity. THROMBI: Positive for DVT within mid and distal portion of 1 of the posterior tibial veins; 13 cm segment. Chemically induced thrombus in multiple varicose veins in right lower leg. COMPRESSIBILITY: Non-compressible segments. FLOW: Areas of no flow. OTHER: No significant varicosities remain. CONCLUSION: 1. Chemically induced segment of deep vein thrombus within 1 of the posterior tibial veins. Patient is being placed on aspirin 325 mg for 14 days 2. Successful ablation of treated branch saphenous varicosities within right lower extremity. Dictated by: Long Pierre M.D. on 04/12/2022 at 14:04 Approved by: Long Pierre M.D. on 04/12/2022 at 14:24 [facility] VC INJ FOAM SCLERO W US MLTI on 04-06-2022 VC INJ FOAM SCLERO W US MLTI Patient: LEONARDA MICKIE Osiris. Exam Date: 04/06/2022 : 1980 Gender:F Ordering : DR RUBI JACKSON M.D. Admission #: [id number] Family : Order #: [id number] CLICK HERE TO VIEW EXAM RADIOLOGY REPORT PROCEDURE: VEIN CENTER INJECTION FOAM SCLEROSING SOLUTION WITH ULTRASOUND MULTIPLE VEINS COMPARISON: None. Pre-operative Diagnosis: CEAP class C3 venous insufficiency with pain, tenderness, edema and incompetent right great saphenous vein and varicose veins, chronic venous insufficiency right leg secondary to venous incompetence Post-operative Diagnosis: CEAP class C3 venous insufficiency with pain, tenderness, edema and incompetent right great saphenous vein and varicose veins, chronic venous insufficiency right leg secondary to venous incompetence Procedure Performed: 1. Ultrasound-guided microfoam chemical ablation with Varithena(r) 2. Intraoperative ultrasound guidance Physician: Rubi Jackson M.D. Anesthesia: None Indications for Procedure: 41-year-old female who presents with a 1 year history of lower extremity pain swelling and itching. The patient failed conservative medical therapy including medical compression stockings, exercise and analgesics. Prior procedures include intravenous laser ablation Multiple incompetent varicosities of the right leg. Duplex scan showed reflux and enlarged diameters up to 5 mm. The patient underwent informed consent including management options where the complications of infection, bleeding, pain, and skin injury were discussed. Particular attention was spent discussing thrombus extension and deep vein thrombosis as well as the possibility of pulmonary embolus and treatment with oral or injectable blood thinners. Procedure: The patient walked to the procedure room. All applicable staff donned appropriate apparel. A procedure timeout was performed to confirm correct patient, correct extremity, correct procedure, and correct room set-up including presence of all applicable supplies, devices, and drugs. A duplex ultrasound, performed by myself confirmed the location and incompetence right leg varicose veins and their course marked on the skin together with the dilated tributaries. The extent of treatment of the vein and the associated varicosities was determined through ultrasound mapping. The patient was placed on the operating room table. The limb was prepped. The skin was punctured with a butterfly needle through the skin with the venous access needle and advanced under ultrasound guidance. The target limb was positioned at 45 degrees of elevation in relation to the torso utilizing a foam pad. The Varithena(r) canister was previously activated and the canister was primed and purged as required in the instructions for use. The following injections were made: 5 mL aliquot of Varithena(r) was drawn into a sterile syringe. Injection into a 5 mm varicose vein medial distal right lower leg 4 mL aliquot of Varithena(r) was drawn into a sterile syringe. Injection into a 4 mm varicose vein medial distal right thigh 4 mL aliquot of Varithena(r) was drawn into a sterile syringe. Injection into a 4 mm varicose vein lateral distal right lower leg Varithena(r) was slowly administered at 0.5-1.0 cc/second with close observation by ultrasound of its course in the injected veins. A total volume of 13 mL of Varithena(r) was used. During administration of Varithena(r), the patient was asked to dorsiflex the ankle to limit flow of Varithena(r) into perforating veins. Once appropriate spasm had been confirmed in the treated veins, the vascular catheter was removed from the leg and light pressure was applied over the puncture site for hemostasis The common femoral and deep superficial veins were then evaluated for flow and compressibility prior to dressing placement. The lower extremity was kept elevated at 45 degrees above the horizontal and cording material was applied over the saphenous segments and tributaries to allow for eccentric compression over the target vessels including the targeted saphenous vein(s). A multilayer dressing was applied consisting of foam pads, coban and thigh-high 20-30 mm Hg compression elastic support hose were placed on the patient. The leg was lowered only after compression had been applied and the patient was immediately ambulatory. The patient ambulated 10 minutes under supervision and was without apparent concerns at time of release Post-care instructions include advising patient to keep post-treatment bandages in place and dry for 48 hours, avoid extended periods of inactivity, avoid heavy exercise for one week, wear compression stockings on the treated leg continuously for two weeks, to walk daily for 10 minutes over the next month. The patient was instructed to take an anti-inflammatory medicine as needed and to follow up for color duplex scan of the GSV, the treated superficial varices, (more content not included)... Normal [facility] VC CONSULT FOLLOWUPon 2022 VC CONSULT FOLLOWUP Patient: MICKIE BRENNAN. Exam Date: 03/23/2022 : 1980 Gender:F Ordering : DR RUBI JACKSON M.D. Admission #: [id number] Family : Order #: [id number] CLICK HERE TO VIEW EXAM RADIOLOGY REPORT PROCEDURE: VEIN CENTER CONSULTATION FOLLOWUP VEIN CENTER - OFFICE VISIT FOLLOW UP COMPARISON: VC CONSULT FOLLOWUP, 03/08/2022. PROGRESS NOTES: The patient reports only mild discomfort of the left leg which has resolved following intravenous laser ablation. The patient not required analgesics. The patient has worn compression stocking. The patient has followed our recommendations to walk 20-30 minutes once or twice per day since the procedure. Patient reports significant improvement in her initial presenting symptoms. She does complain of continued subcutaneous edema. Did inform her that edema likely was multifactorial recommended that she compression stockings. Physical exam demonstrates no areas of erythema ulceration. The great saphenous vein cannot be palpated due to patient habitus. Review of the ultrasound performed the same day demonstrates occlusive thrombus extending throughout the treated left great saphenous vein. Heat induced thrombus is 3.4 cm from the saphenous femoral junction. The patient expressed a desire to proceed with treatment of close veins micro chemical ablation. IMPRESSION: 1. Successful ablation of the left great saphenous vein 2. Persistent bilateral incompetent varicose veins PLAN: Micro foam chemical ablation right leg Nurse notes, history and physical were reviewed and confirmed, see attached forms. The nurse was present throughout the physical exam and consultation Dictated by: Rubi Jackson MD on 03/23/2022 at 15:01 Approved by: Rubi Jackson MD on 03/23/2022 at 15:03 Normal [facility] VC EXT VENOUS LT LIMITEDon 0 03-23-2022 VC EXT VENOUS LT LIMITED Patient: MICKIE BRENNAN. Exam Date: 03/23/2022 : 1980 Gender:F Ordering : DR RUBI JACKSON M.D. Admission #: [id number] Family : Order #: [id number] CLICK HERE TO VIEW EXAM RADIOLOGY REPORT PROCEDURE: VEIN CENTER EXTREMITY VENOUS LEFT LIMITED COMPARISON: None. INDICATIONS: Phlebitis of superficial veins of lower extremity I80.02 TECHNIQUE: Lower extremity raman scale and Duplex Doppler evaluation of the deep venous system from the inguinal ligament through the calf veins. FINDINGS: REGION: Left lower extremity. THROMBI: Negative for DVT. Heat induced thrombus visualized 3.4cm from the SFJ. The heat induced thrombus extends from groin to distal calf. COMPRESSIBILITY: Non-compressible segments corresponding to thrombus. FLOW: Areas of absent flow corresponding to thrombus. *Exam performed in accordance with [facility] practice guidelines- Peripheral venous ultrasound, May 01, 2009. CONCLUSION: Post ablation occlusion of the left great saphenous vein with heat induced thrombus 4.4 cm from the saphenofemoral junction. Dictated by: Rubi Jackson MD on 03/23/2022 at 14:24 Approved by: Rubi Jackson MD on 03/23/2022 at 14:26 Normal [facility] VC ENDOVENOUS ABL 1ST V LTon 03-17-2022 VC ENDOVENOUS ABL 1ST V LT Patient: MICKIE BRENNAN Exam Date: 03/17/2022 : 1980 Gender:F Ordering : DR RUBI JACKSON M.D. Admission #: [id number] Family : Order #: [id number] CLICK HERE TO VIEW EXAM RADIOLOGY REPORT PROCEDURE: VEIN CENTER ENDOVENOUS ABLATION FIRST VEIN LEFT GREAT SAPHENOUS VEIN COMPARISON: None. INDICATIONS: Pain co-occurrent and due to varicose veins of bilateral legs I83.813 OPERATIVE REPORT: The risks and benefits of the procedure had been previously discussed, and were rediscussed at length. Informed written consent was obtained by me and Darius Hooper assisted. Time out procedure was performed. The left lower extremity was prepared and draped in the usual sterile fashion to allow knee flexion in the sterile field. Duplex ultrasound probe was draped in a sterile cover, sterile transmission gel was used. Venous mapping was performed with the areas of dilation and large tributaries marked. The total length was 62 cm from the entry 3 cm above the medial malleolus to 3 cm below the saphenofemoral junction. The diameter of the greater saphenous vein ranged from 5-9 mm. A 30 gauge needle and 1% buffered lidocaine was used to anesthetize the entry site. A 4 mm incision was made with a scalpel and the saphenous vein was entered percutaneously under direct ultrasound guidance with a micropuncture set, a single stick was successful in gaining access. A micro-guide wire was inserted and the needle removed. A micro-set including a dilator was inserted over the microwire and the needle and dilator were removed. A 0.018 guide wire was inserted through the micro-set and threaded through the saphenous vein to the saphenofemoral junction. The dilator was removed and an introducer sheath was inserted over the wire until the end of the sheath entered the saphenofemoral junction. The dilator and wire were removed and the 600 micron fiber was introduced and placed and positioned so that it extended beyond the sheath and was 3 cm peripheral to the saphenofemoral femoral junction. Final position of the fiber was determined by ultrasound guidance and duplex imaging. Tumescent anesthetic was delivered by ultrasound guidance. 450 cc of fluid was delivered along the entire course of the saphenous vein. The solution consisted of 500 cc of normal saline with 20mL of 1% lidocaine and 10 mL of sodium bicarbonate. A final positioning check was made. The energy source was turned on by means of the foot pedal and the fiber and sheath were withdrawn. The total number of Joules delivered was 1852. The laser was active for 356 seconds under continuous pulse, average laser use of 8 J. Laser start time 11:31 am 03/17/22. Laser stop time 11:38 03/17/22 A duplex ultrasound revealed compressibility and flow at the saphenofemoral junction immediately after the procedure. Hemostasis at the access site was achieved. The skin incision of the saphenous vein was closed with a 4 x 4. A compression stocking was applied. Postop instructions were given. A follow up appointment was recommended and scheduled. The patient tolerated the procedure well and was discharged in good condition. CONCLUSION: 1. Technically successful endovenous laser ablation of the left great saphenous vein. Dictated by: Rubi Jackson MD on 03/17/2022 at 11:41 Approved by: Rubi Jackson MD on 03/17/2022 at 11:43 Normal [facility] VC CONSULT FOLLOWUPon 2022 VC CONSULT FOLLOWUP Patient: MICKIE BRENNAN Exam Date: 03/08/2022 : 1980 Gender:F Ordering : DR RUBI JACKSON M.D. Admission #: [id number] Family : Order #: [id number] CLICK HERE TO VIEW EXAM RADIOLOGY REPORT PROCEDURE: VEIN CENTER CONSULTATION FOLLOWUP VEIN CENTER - OFFICE VISIT FOLLOW UP COMPARISON: None. PROGRESS NOTES: The patient reports no significant pain of the right leg following intravenous laser ablation of the right great saphenous vein. The patient did require oral analgesics. The patient did wear her compression stocking. The patient has followed our recommendations to walk 20-30 minutes once or twice per day since the procedure. Physical exam demonstrates 2 small areas of minimal bruising measuring to 2 cm along the medial right thigh related to tumescence injection. No areas of erythema warmth. The great saphenous vein cannot be definitively palpated. No active ulceration Review of the ultrasound performed the same day demonstrates occlusive thrombus extending throughout the treated right great saphenous vein , heat induced thrombus is 3.7 cm in saphenofemoral junction and 1.4 cm from a patent epigastric vein The patient expressed a desire to proceed with treatment of incompetent left great saphenous vein with intravenous laser ablation. IMPRESSION: 1. Successful ablation of the right great saphenous vein 2. Persistent incompetent left great saphenous vein PLAN: Intravenous laser ablation left great saphenous vein Nurse notes, history and physical were reviewed and confirmed, see attached forms. The nurse was present throughout the physical exam and consultation Dictated by: Rubi Jackson MD on 03/08/2022 at 15:05 Approved by: Rubi Jackson MD on 03/08/2022 at 15:06 Normal [facility] VC EXT VENOUS RT LIMITEDon 0 03-08-2022 VC EXT VENOUS RT LIMITED Patient: MICKIE BRENNAN. Exam Date: 03/08/2022 : 1980 Gender:F Ordering : DR RUBI JACKSON M.D. Admission #: [id number] Family : Order #: [id number] CLICK HERE TO VIEW EXAM RADIOLOGY REPORT PROCEDURE: VEIN CENTER EXTREMITY VENOUS RIGHT LIMITED COMPARISON: None. INDICATIONS: Pain co-occurrent and due to varicose veins of bilateral legs I83.813 TECHNIQUE: Lower extremity raman scale and Duplex Doppler evaluation of the deep venous system from the inguinal ligament through the calf veins. FINDINGS: REGION: Right lower extremity. THROMBI: Negative for DVT. Heat induced thrombus in right GSV 3.7 cm from SFJ and extends to mid calf. COMPRESSIBILITY: Non-compressible segments corresponding thrombus. FLOW: Absent flow corresponding to thrombus *Exam performed in accordance with [facility] practice guidelines- Peripheral venous ultrasound, May 01, 2009. CONCLUSION: Post ablation occlusion of the right great saphenous vein with heat induced thrombus 3.7 cm from the saphenofemoral junction and 1.4 cm from the epigastric Dictated by: Rubi Jackson MD on 03/08/2022 at 14:53 Approved by: Rubi Jackson MD on 03/08/2022 at 14:54 Normal [facility] VC ENDOVENOUS ABL 1ST V RTon 03-03-2022 VC ENDOVENOUS ABL 1ST V RT Patient: LEONARDA May. Exam Date: 03/03/2022 : 1980 Gender:F Ordering : DR RUBI JACKSON M.D. Admission #: [id number] Family : Order #: [id number] CLICK HERE TO VIEW EXAM RADIOLOGY REPORT PROCEDURE: VEIN CENTER ENDOVENOUS ABLATION FIRST VEIN RIGHT GREAT SAPHENOUS COMPARISON: None. INDICATIONS: Pain co-occurrent and due to varicose veins of bilateral legs I83.813 OPERATIVE REPORT: The risks and benefits of the procedure had been previously discussed, and were rediscussed at length. Informed written consent was obtained by me and Darius Hooper assisted. Time out procedure was performed. The right lower extremity was prepared and draped in the usual sterile fashion to allow knee flexion in the sterile field. Duplex ultrasound probe was draped in a sterile cover, sterile transmission gel was used. Venous mapping was performed with the areas of dilation and large tributaries marked. The total length was 42 cm from the entry upper to mid calf to 3 cm below the saphenofemoral junction. The diameter of the greater saphenous vein ranged from 5-9 mm. A 30 gauge needle and 1% buffered lidocaine was used to anesthetize the entry site. A 4 mm incision was made with a scalpel and the saphenous vein was entered percutaneously under direct ultrasound guidance with a micropuncture set, a single stick was successful in gaining access. A micro-guide wire was inserted and the needle removed. A micro-set including a dilator was inserted over the microwire and the needle and dilator were removed. A 0.018 guide wire was inserted through the micro-set and threaded through the saphenous vein to the saphenofemoral junction. The dilator was removed and an introducer sheath was inserted over the wire until the end of the sheath entered the saphenofemoral junction. The dilator and wire were removed and the 600 micron fiber was introduced and placed and positioned so that it extended beyond the sheath and was 3 cm peripheral to the saphenofemoral femoral junction. Final position of the fiber was determined by ultrasound guidance and duplex imaging. Tumescent anesthetic was delivered by ultrasound guidance. 300 cc of fluid was delivered along the entire course of the saphenous vein. The solution consisted of 500 cc of normal saline with 20mL of 1% lidocaine and 10 mL of sodium bicarbonate. A final positioning check was made. The energy source was turned on by means of the foot pedal and the fiber and sheath were withdrawn. The total number of Joules delivered was 2048. The laser was active for 256 seconds under continuous pulse, average laser use of 8 J. Laser start time 1:50 p.m. March 03, 2022. Laser stop time 1:54 p.m. March 03, 2022. A duplex ultrasound revealed compressibility and flow at the saphenofemoral junction immediately after the procedure. Hemostasis at the access site was achieved. The skin incision of the saphenous vein was closed with a 4 x 4. A compression stocking was applied. Postop instructions were given. A follow up appointment was recommended and scheduled. The patient tolerated the procedure well and was discharged in good condition. CONCLUSION: 1. Technically successful endovenous laser ablation of the right great saphenous vein. Dictated by: Rubi Jackson MD on 03/03/2022 at 14:56 Approved by: Rubi Jackson MD on 03/03/2022 at 14:58 Normal [facility] VC COMP CONSULTATIONon 01-18 VC COMP CONSULTATION Patient: MICKIE BRENNAN. Exam Date: 01/18/2022 : 1980 Gender:F Ordering : DR LAURO GATES . Admission #: [id number] Family : Order #: [id number] CLICK HERE TO VIEW EXAM RADIOLOGY REPORT PROCEDURE: VC VEIN CENTER CONSULTATION VEIN CENTER - OFFICE VISIT INITIAL COMPARISON: None. PROGRESS NOTES: [age] year old female who presents with a 1 year history of lower extremity swelling, stinging, pain, itching. The patient's right leg symptoms are worse than the left. There has been a progression of symptoms over past 6 months. This increases with prolonged standing which patient does for her work. The patient describes an improvement with rest, elevation, and compression stockings. The patient denies any signs and symptoms to suggest arterial ischemia. The patient describes a family history ; no significant varicose vein history. The patient has drinking and smoking history of : none. Patient has a past medical history significant for : No significant related history. The patient denies a history of deep venous thrombus or pulmonary embolus. See separate history and physical for medication list. No prior treatment for varicose or spider veins. Current use of compression stockings. After review of nurse notes, history and physical exam I discussed at length the pathophysiology of venous hypertension and possible treatments, therapies and strategies available. We discussed at length the importance of elevating the lower extremities above the level of the heart, increased physical activity and compression stocking use. Ultrasound venous reflux study performed today was discussed at length with the patient. The report demonstrates dilated, incompetent great saphenous veins bilaterally, borderline incompetent small saphenous veins, and scattered incompetent branch saphenous varicosities. PHYSICAL EXAM: The right leg demonstrates several varicosities, scattered spider veins, no ulceration, moderate edema, no skin discoloration. The left leg demonstrates several varicosities, scattered spider veins, no ulceration, moderate edema, no skin discoloration. Both thighs, legs and feet were symmetrically warm to the touch. Good posterior tibial and dorsalis pedis pulses were present bilaterally. IMPRESSION: 1. Bilateral lower extremity venous insufficiency 2. Bilateral lower extremity varicose veins 3. Moderate bilateral lower extremity subcutaneous edema 4. No appreciable flow significant arterial disease 5. CEAP: C3, EP, AP, [place] PLAN: 1. Continued use of compression stockings 2. Elevated legs and increased physical activity symptomatic relief 3. Endovenous laser ablation of bilateral great saphenous veins; microfoam chemical ablation of branch saphenous varicosities. Nurse notes, history and physical were reviewed and confirmed, see attached forms. The nurse was present throughout the physical exam and consultation Dictated by: Long Pierre M.D. on 01/18/2022 at 10:25 Approved by: Long Pierre M.D. on 01/18/2022 at 10:57 Normal [facility] VC VENOUS REFLUX TAO LMTon 1 03-21-2021 VC VENOUS REFLUX TAO LMT Patient: LEONARDA May. Exam Date: 01/18/2022 : 1980 Gender:F Ordering : DR LAURO GATES . Admission #: [id number] Family : Order #: [id number] CLICK HERE TO VIEW EXAM RADIOLOGY REPORT PROCEDURE: VEIN CENTER ULTRASOUND VENOUS REFLUX BILATERAL LIMTED COMPARISON: None. INDICATIONS: Localized edema R60.0 TECHNIQUE: Duplex imaging of the lower extremity to assess the deep and superficial venous system for the presence of deep or superficial venous incompetence and to document the location and severity of disease. The study includes evaluation of the great saphenous vein (GSV), anterior accessory saphenous vein (AASV) and small saphenous vein (SSV). Patient scanned in reverse Trendelenburg and standing. FINDINGS: RIGHT LOWER EXTREMITY: Saphenofemoral Junction Reflux: Yes 9.7mm 2.1 sec GSV: Diam (mm) Reflux/ Time (sec) Proximal Thigh 8.0 Yes 1.0 Mid Thigh 7.6 No Distal Thigh 7.0 No Prox Calf 5.4 Yes 0.7 Mid Calf 4.4 Yes 0.3 Saphenopopliteal Junction Reflux: 5.7mm No SSV: Proximal Calf 6.1 Yes 1.4 Mid Calf 4.5 No AASV: Proximal Thigh 4.0 No Mid Thigh 3.2 No Distal Thigh Thrombi: No acute or chronic thrombus. Compressibility: Normal. Flow: Deep venous reflux. Preforator: Medial distal lower leg 3.7 mm without reflux. Mid/medial lower leg 3.5 mm, 0.5s reflux. Tech Note: Thigh extention of SSV. Incompetent GSV. Varicose vein mid medial calf measures 5.0 mm with 0.4s reflux. Medial knee varicosity measures 4.5 mm with 0.5s reflux. Varicosity distal anterior thigh measures 4.0 mm with 0.3s reflux. Distal anterior lower leg varicose vein measures 4.1 mm with 0.5s reflux. LEFT LOWER EXTREMITY: Saphenofemoral Junction Reflux: Yes 8.9 mm 1.7 sec GSV: Diam (mm) Reflux/Time (sec) Proximal Thigh 8.7 Yes 1.8 Mid Thigh 6.1 Yes 0.3 Distal Thigh 5.3 Yes 3.4 Prox Calf 4.2 Yes 0.5 Mid Calf 3.5 No Saphenopopliteal Junction Relux: 6.3 mm No SSV: Proximal Calf 3.4 Yes 2.8 Mid Calf 2.7 No AASV: Proximal Thigh 6.0 Yes 0.2 Mid Thigh 4.9 Yes 0.4 Distal Thigh Thrombi: No acute or chronic thrombus. Compressibility: Normal. Flow: Deep venous reflux. House Mover Helper: Dist/medial lower leg 2.8 mm without reflux. Mid medial lower leg 6.0 mm without reflux. Tech Note: Thigh extention of SSV. Incompetent GSV. Varicose vein proximal/medial lower leg measures 4.0 mm with 0.3s reflux. Mid/medial lower leg varicose vein measures 3.2 mm with 0.3s reflux. Varicosity distal/medial thigh measures 3.5 mm with 0.3s reflux. Mid calf varicose vein measures 4.0 mm with 0.5s reflux. CONCLUSION: 1. Dilated, incompetent great saphenous vein bilaterally. 2. Borderline incompetent small saphenous vein bilaterally. 3. Bilateral lower extremity dilated branch saphenous varicosities. 4. Consultation for endovenous ablation recommended. Dictated by: Long Pierre M.D. on 01/18/2022 at 10:09 Approved by: Long Pierre M.D. on 01/18/2022 at 10:25 Normal [facility] US JETHRO DOP LEG BILon 022 US JETHRO DOP LEG TAO EXAMINATION: US JETHRO DOP LEG TAO HISTORY: Pain in lower limb COMPARISON: No relevant comparison available. TECHNIQUE: Grayscale, color and Doppler ultrasound FINDINGS: Region: Bilateral legs Thrombus: None Flow: Normal Augmentation: Normal Compressibility: Normal IMPRESSION: No deep or superficial vein thrombus in the legs *Exam performed in accordance with [facility] practice guidelines- Peripheral venous ultrasound, May 01, 2009. Electronically authenticated by: RUBI JACKSON Date: 2021-12-19 12:33 Normal [facility] GLYCOHEMOGLOBIN A1Con 2021 ADA RECOMMENDATION SEE BELOW Normal [facility] Comment on above: Result Comment: ADA RECOMMENDED LIMIT 4.0 - 6.0 ADA THERAPEUTIC TARGET < 7.0 ACTION SUGGESTED > 7.0 Performed By: #### U MICRO, UACSIND #### [facility] [address] [place] [address] Dr. Forrest Carrillo Glucose [Mass/Vol] 151 mg/dL Normal [facility] Comment on above: Performed By: #### U MICRO, UACSIND #### [facility] [address] [address] [address] Forrest Carrillo HbA1c (Bld) [Mass fraction] 6.9 % Critically high 4.5-6.2 [facility] Comment on above: Performed By: #### U MICRO, UACSIND #### [facility] [address] [address] [address] Forrest Carrillo CBC AUTO DIFFon 09-13-2021 BASO # 0.0 103/ul Normal 0.0-0.1 [facility] Comment on above: Performed By: #### C BC ####[facility] [address] [address]DrKatlin Carrillo Basophils/100 WBC (Bld) 0.2 % Normal 0.2-2.0 [facility] Comment on above: Performed By: #### C BC ####[facility] [address] [place], [place] [address]DrKatlin Carrillo EO # 0.0 103/ul Normal 0.0-0.7 [facility] Comment on above: Performed By: #### C BC ####[facility] [address] [place], [place] [address]Dr. Forrest Carrillo Eosinophils/100 WBC (Bld) 0.1 % Critically low 0.9-7.0 [facility] Comment on above: Performed By: #### C BC ####[facility] [address] [address]DrKatlin Carrillo Erythrocyte distribution width (RBC) [Ratio] 14.9 % Normal 11.0-15.0 [facility] Comment on above: Performed By: #### C BC ####[facility] [address] [place], [place] [address]DrKatlin Carrillo Hematocrit (Bld) [Volume fraction] 25.9 % Critically low 36.0-48.0 [facility] Comment on above: Performed By: #### C BC ####[facility] [address] [id number][address] Forrest Carrillo Hemoglobin (Bld) [Mass/Vol] 8.4 g/dL Critically low 12.0-16.0 [facility] Comment on above: Result Comment: Post Baby Performed By: #### C BC ####[facility] [address] [id number]. Forrest Carrillo IG # 0.04 10e3/ul Critically high 0.00-0.03 [facility] Comment on above: Performed By: #### C BC ####[facility] [address] [address]Dr. Forrest Carrillo IG % 0.3 % Normal 0.0-0.5 [facility] Comment on above: Performed By: #### C BC ####[facility] [address] [address]Dr. Forrest Carrillo LYMPH # 1.2 103/ul Normal 1.2-3.8 [facility] Comment on above: Performed By: #### C BC ####[facility] [address] [address]Dr. Forrest Gerardo Lymphocytes/100 WBC (Bld) 9.8 % Critically low 20.5-60.0 [facility] Comment on above: Performed By: #### C BC ####[facility] [address] [place] [address]Dr. Forrest Gerardo MANUAL DIFF REQ NO Normal [facility] Comment on above: Performed By: #### C BC ####[facility] [address] [place] [address]Dr. Forrest Carrillo MCH (RBC) [Entitic mass] 25.8 pg Critically low 26.7-34.0 [facility] Comment on above: Performed By: #### C BC ####[facility] [address] [place], [place] [address]Dr. Forrest Gerardo MCHC (RBC) [Mass/Vol] 32.4 g/dL Normal 29.9-35.2 [facility] Comment on above: Performed By: #### C BC ####[facility] [address] [place] [id number]. Forrest Carrillo MCV (RBC) [Entitic vol] 79.4 fL Critically low 81.0-99.0 [facility] Comment on above: Performed By: #### C BC ####[facility] [address] [place] [id number]. Forrest Carrillo MONO # 0.9 103/ul Critically high 0.3-0.8 [facility] Comment on above: Performed By: #### C BC ####[facility] [address] [place] [id number]. Forrest Carrillo Monocytes/100 WBC (Bld) 6.8 % Normal 1.7-12.0 [facility] Comment on above: Performed By: #### C BC ####[facility] [address] [place] [id number]. Forrest Carrillo NEUT # 10.4 103/ul Critically high 1.4-6.5 [facility] Comment on above: Performed By: #### C BC ####[facility] [address] [place] [id number]. Forrest Carrillo Neutrophils/100 WBC (Bld) 82.8 % Critically high 43.0-75.0 [facility] Comment on above: Performed By: #### C BC ####[facility] [address] [place] [id number]. Forrest Carrillo Platelet mean volume (Bld) [Entitic vol] 8.9 fL Critically low 9.5-13.5 [facility] Comment on above: Performed By: #### C BC ####[facility] [address] [place] [id number]. Forrest Carrillo PLT 187 103/ul Normal 150-450 [facility] Comment on above: Performed By: #### C BC ####[facility] [address] [place] [id number]. Forrest Carrillo RBC 3.26 106/ul Critically low 4.20-5.40 [facility] Comment on above: Performed By: #### C BC ####[facility] [address] [place] [id number]. Forrest Carrillo WBC 12.5 103/ul Critically high 4.0-11.0 [facility] Comment on above: Performed By: #### C BC ####[facility] [address] [place] [id number]. Forrest Carrillo POINT OF CARE GLUCOSEon 08-0 Glucose [Mass/Vol] 102 mg/dL Normal 74-106 [facility] Comment on above: Performed By: #### P OCGLUC #### [facility] [address] [address] [address] Forrest Carrillo CBC AUTO DIFFon 09-12-2021 BASO # 0.0 103/ul Normal 0.0-0.1 [facility] Comment on above: Performed By: #### P OCGLUC #### [facility] [address] [address] [address] Forrest Carrillo Basophils/100 WBC (Bld) 0.2 % Normal 0.2-2.0 [facility] Comment on above: Performed By: #### P OCGLUC #### [facility] [address] [address] [address] Forrest Carrillo EO # 0.1 103/ul Normal 0.0-0.7 [facility] Comment on above: Performed By: #### P OCGLUC #### [facility] [address] [address] [address] Forrest Carrillo Eosinophils/100 WBC (Bld) 0.5 % Critically low 0.9-7.0 [facility] Comment on above: Performed By: #### P OCGLUC #### [facility] [address] [address] [address] Forrest Carrillo Erythrocyte distribution width (RBC) [Ratio] 14.7 % Normal 11.0-15.0 [facility] Comment on above: Performed By: #### P OCGLUC #### [facility] [address] [address] [address] Forrest Carrillo Hematocrit (Bld) [Volume fraction] 32.5 % Critically low 36.0-48.0 [facility] Comment on above: Performed By: #### P OCGLUC #### [facility] [address] [address] [address] Forrest Carrillo Hemoglobin (Bld) [Mass/Vol] 10.9 g/dL Critically low 12.0-16.0 [facility] Comment on above: Performed By: #### P OCGLUC #### [facility] [address] [address] [address] Forrest Carrillo IG # 0.03 10e3/ul Normal 0.00-0.03 [facility] Comment on above: Performed By: #### P OCGLUC #### [facility] [address] [address] [address] Forrest Carrillo IG % 0.3 % Normal 0.0-0.5 [facility] Comment on above: Performed By: #### P OCGLUC #### [facility] [address] [address] [address] Forrest Carrillo LYMPH # 1.6 103/ul Normal 1.2-3.8 [facility] Comment on above: Performed By: #### P OCGLUC #### [facility] [address] [address] [address] Forrest Carrillo Lymphocytes/100 WBC (Bld) 15.6 % Critically low 20.5-60.0 [facility] Comment on above: Performed By: #### P OCGLUC #### [facility] [address] [address] [address] Forrest Carrlilo MANUAL DIFF REQ NO Normal [facility] Comment on above: Performed By: #### P OCGLUC #### [facility] [address] [address] [address] Forrest Carrillo MCH (RBC) [Entitic mass] 25.8 pg Critically low 26.7-34.0 [facility] Comment on above: Performed By: #### P OCGLUC #### [facility] [address] [address] [address] Forrest Carrillo MCHC (RBC) [Mass/Vol] 33.5 g/dL Normal 29.9-35.2 [facility] Comment on above: Performed By: #### P OCGLUC #### [facility] [address] [address] [address] Forrest Carrillo MCV (RBC) [Entitic vol] 77.0 fL Critically low 81.0-99.0 [facility] Comment on above: Performed By: #### P OCGLUC #### [facility] [address] [address] [address] Forrest Carrillo MONO # 0.7 103/ul Normal 0.3-0.8 [facility] Comment on above: Performed By: #### P OCGLUC #### [facility] [address] [address] [address] Forrest Carrillo Monocytes/100 WBC (Bld) 7.2 % Normal 1.7-12.0 [facility] Comment on above: Performed By: #### P OCGLUC #### [facility] [address] [place] [address] Dr. Forrest Carrillo NEUT # 7.7 103/ul Critically high 1.4-6.5 [facility] Comment on above: Performed By: #### P OCGLUC #### [facility] [address] [place] [address] Dr. Forrest Carrillo Neutrophils/100 WBC (Bld) 76.2 % Critically high 43.0-75.0 [facility] Comment on above: Performed By: #### P OCGLUC #### [facility] [address] [address] [address] Forrest Carrillo Platelet mean volume (Bld) [Entitic vol] 9.0 fL Critically low 9.5-13.5 [facility] Comment on above: Performed By: #### P OCGLUC #### [facility] [address] [address] [address] Forrest Carrillo PLT 195 103/ul Normal 150-450 [facility] Comment on above: Performed By: #### P OCGLUC #### [facility] [address] [address] [address] Forrest Carrillo RBC 4.22 106/ul Normal 4.20-5.40 [facility] Comment on above: Performed By: #### P OCGLUC #### [facility] [address] [address] [address] Forrest Carrillo WBC 10.1 103/ul Normal 4.0-11.0 [facility] Comment on above: Performed By: #### P OCGLUC #### [facility] [address] [address] [address] Forrest Carrillo Covid-19 PCR ([facility])on SARS-CoV-2 (COVID-19) RNA BRIANNA+probe Ql (Unsp spec) Not detected Normal NOT DETECTED [facility] Comment on above: Result Comment: When diagnostic testing is negative, the possibility of a false negative should be considered in the context of a patient's recent exposures and the presence of clinical signs and symptoms consistent with SARS-CoV-2. This test is not yet approved or cleared by the [place] FDA. When there are no FDA-approved or cleared tests available, and other criteria are met, FDA can make tests available under an emergency access mechanism called an Emergency Use Authorization (EUA). The EUA for this test is supported by the [place] of Health and Human Service's declaration that circumstances exist to justify the emergency use of in vitro diagnostics for the detection and/or diagnosis of the virus that causes COVID-19. This EUA will remain in effect for the duration of the COVID-19 declaration justifying emergency of IVDs, unless it is terminated or revoked by the FDA (after which the test may no longer be used). Performed By: #### C VDTBH ####[facility] [address] [place] [id number]. Forrest Carrillo DRUG SCREEN RAPID (URINE)on 09-12-2021 AMP Negative Normal NEGATIVE [facility] Comment on above: Performed By: #### P OCGLUC #### [facility] [address] [address] [address] Forrest Carrillo BAR Negative Normal NEGATIVE [facility] Comment on above: Performed By: #### P OCGLUC #### [facility] [address] [address] [address] Forrest Carrillo BUP Negative Normal NEGATIVE [facility] Comment on above: Performed By: #### P OCGLUC #### [facility] [address] [address] [address] Forrest Carrillo BZO Negative Normal NEGATIVE [facility] Comment on above: Performed By: #### P OCGLUC #### [facility] [address] [address] [address] Forrest Carrillo MAUREEN Negative Normal NEGATIVE [facility] Comment on above: Performed By: #### P OCGLUC #### [facility] [address] [address] [address] Forrest Carrillo CUT-OFFS SEE BELOW Normal [facility] Comment on above: Result Comment: AMP (Amphetamine): 500ng/mL, BAR (Barbituates): 200 ng/mL, BZO (Benzodiazepines): 150 ng/mL, BUP (Buprenorphine): 10 ng/mL, MAUREEN (Cocaine): 150 ng/mL, mAMP (Methamphetamine): 500 ng/mL, MTD (Methadone): 200 ng/mL, OPI (Opiates): 100 ng/mL, OXY (Oxycodone): 100 ng/mL, PCP (Phencyclidine): 25 ng/mL, PPX (Propoxyphene): 300 ng/mL, THC (Cannabinoids): 50 ng/mL, TCA (Trycyclic Antidepressants): 300 ng/mL Performed By: #### P OCGLUC #### [facility] [address] [place] [address] Dr. Forrest Carrillo DRUG CUT HEADER DRUG CLASS TEST SYSTEM CUT-OFF CONCENTRATIONS ARE FOLLOWS: Normal [facility] Comment on above: Performed By: #### P OCGLUC #### [facility] [address] [place] [address] Dr. Forrest Carrillo mAMP Negative Normal NEGATIVE [facility] Comment on above: Performed By: #### P OCGLUC #### [facility] [address] [place] [address] Dr. Forrest Carrillo MTD Negative Normal NEGATIVE [facility] Comment on above: Performed By: #### P OCGLUC #### [facility] [address] [place] [address] Dr. Forrest Carrillo OPI Negative Normal NEGATIVE [facility] Comment on above: Performed By: #### P OCGLUC #### [facility] [address] [address] [address] Forrest Carrillo OXY Negative Normal NEGATIVE [facility] Comment on above: Performed By: #### P OCGLUC #### [facility] [address] [address] [address] Forrest Carrillo PCP Negative Normal NEGATIVE [facility] Comment on above: Performed By: #### P OCGLUC #### [facility] [address] [address] [address] Forrest Carrillo PPX Negative Normal NEGATIVE [facility] Comment on above: Performed By: #### P OCGLUC #### [facility] [address] [address] [address] Forrest Carrillo TCA Negative Normal NEGATIVE [facility] Comment on above: Performed By: #### P OCGLUC #### [facility] [address] [address] [address] Forrest Carrillo THC Negative Normal NEGATIVE [facility] Comment on above: Performed By: #### P OCGLUC #### [facility] [address] [address] [address] Forrest Carrillo POINT OF CARE GLUCOSEon Glucose [Mass/Vol] 91 mg/dL Normal 74-106 [facility] Comment on above: Performed By: #### P OCGLUC #### [facility] [address] [address] [address] Forrest Carrillo Glucose [Mass/Vol] 107 mg/dL Critically high 74-106 [facility] Comment on above: Performed By: #### P OCGLUC #### [facility] [address] [address] [address] Forrest Carrillo Glucose [Mass/Vol] 92 mg/dL Normal 74-106 [facility] Comment on above: Performed By: #### P OCGLUC #### [facility] [address] [address] [address] Forrest Carrillo Glucose [Mass/Vol] 92 mg/dL Normal 74-106 [facility] Comment on above: Performed By: #### P OCGLUC #### [facility] [address] [address] [address] Forrest Carrillo Glucose [Mass/Vol] 104 mg/dL Normal 74-106 [facility] Comment on above: Performed By: #### P OCGLUC #### [facility] [address] [address] [address] Forrest Carrillo Glucose [Mass/Vol] 100 mg/dL Normal 74-106 [facility] Comment on above: Performed By: #### U MICRO, UACSIND #### [facility] [address] [address] [address] Forrest Carrillo Glucose [Mass/Vol] 100 mg/dL Normal 74-106 [facility] Comment on above: Performed By: #### P OCGLUC #### [facility] [address] [address] [address] Forrest Carrillo Glucose [Mass/Vol] 90 mg/dL Normal 74-106 [facility] Comment on above: Performed By: #### U MICRO, UACSIND #### [facility] [address] [address] [address] Forrest Carrillo Glucose [Mass/Vol] 86 mg/dL Normal 74-106 [facility] Comment on above: Performed By: #### P OCGLUC ####[facility] [address] [address]DrKatlin Carrillo TYPE AND SCREENon 09-12-2021 TYPE AND SCREEN Negative Normal [facility] Comment on above: Performed By: #### T NS ####[facility] [address] [place] [id number] Carrillo UA (CLEAN/CATCH) PUBLICITY WRITER/MICRO I F IND.on 09-12-2021 Bilirubin Ql (U) Negative Normal NEGATIVE [facility] Comment on above: Performed By: #### U MICRO, UACSIND #### [facility] [address] [address] [address] Forrest Carrillo Clarity (U) CLEAR Normal CLEAR [facility] Comment on above: Performed By: #### U MICRO, UACSIND #### [facility] [address] [address] [address] Forrest Carrillo Color (U) YELLOW Normal YELLOW [facility] Comment on above: Performed By: #### U MICRO, UACSIND #### [facility] [address] [address] [address] Forrest Carrillo Glucose Ql (U) Negative Normal NEGATIVE [facility] Comment on above: Performed By: #### U MICRO, UACSIND #### [facility] [address] [address] [address] Forrest Carrillo Hemoglobin Ql (U) Negative Normal NEGATIVE [facility] Comment on above: Performed By: #### U MICRO, UACSIND #### [facility] [address] [address] [address] Forrest Carrillo Ketones Ql (U) >=80 Abnormal NEGATIVE [facility] Comment on above: Performed By: #### U MICRO, UACSIND #### [facility] [address] [address] [address] Forrest Carrillo LEUKOCYTES Negative Normal NEGATIVE [facility] Comment on above: Performed By: #### U MICRO, UACSIND #### [facility] [address] [address] [address] Forrest Carrillo Nitrite Ql (U) Negative Normal NEGATIVE [facility] Comment on above: Performed By: #### U MICRO, UACSIND #### [facility] [address] [address] [address] Forrest Carrillo pH (U) 6.0 [pH] Normal 5-9 [facility] Comment on above: Performed By: #### U MICRO, UACSIND #### [facility] [address] [address] [address] Forrest Carrillo SPEC GRAVITY >=1.030 Abnormal 1.005-<=1.025 [facility] Comment on above: Performed By: #### U MICRO, UACSIND #### [facility] [address] [address] [address] Forrset Carrillo UA PROTEIN Negative Normal NEGATIVE/ TRACE [facility] Comment on above: Performed By: #### U MICRO, UACSIND #### [facility] [address] [address] [address] Forrest Carrillo UR MICRO IND INDICATED Normal [facility] Comment on above: Performed By: #### U MICRO, UACSIND #### [facility] [address] [address] [address] Forrest Carrillo Urobilinogen Qn (U) 0.2 {[place]'U}/dL Normal 0.2 - 1. 0 [facility] Comment on above: Performed By: #### U MICRO, UACSIND #### [facility] [address] [address] [address] Forrest Carrillo URINE MICROSCOPIC ONLYon BACTERIA NONE SEEN Normal NONE SEEN [facility] Comment on above: Performed By: #### U MICRO, UACSIND #### [facility] [address] [place] [address] Dr. Forrest Carrillo Bacteria identified Cx Nom (U) NOT INDICATED Normal [facility] Comment on above: Performed By: #### U MICRO, UACSIND #### [facility] [address] [place] [address] Dr. Forrest Carrillo CA OX CRYSTALS FEW Normal [facility] Comment on above: Performed By: #### U MICRO, UACSIND #### [facility] [address] [place] [address] Dr. Forrest Carrillo CAST NONE SEEN Normal NONE SEEN [facility] Comment on above: Performed By: #### U MICRO, UACSIND #### [facility] [address] [place] [address] Dr. Forrest Carrillo Crystals LM Nom (Urine sed) SEEN Abnormal NONE SEEN [facility] Comment on above: Performed By: #### U MICRO, UACSIND #### [facility] [address] [address] [address] Forrest Carrillo Epithelial cells LM Ql (Urine sed) FEW Abnormal NONE SEEN /RARE [facility] Comment on above: Performed By: #### U MICRO, UACSIND #### [facility] [address] [place] [address] Dr. Forrest Carrillo MUCOUS NONE SEEN Normal NONE SEEN [facility] Comment on above: Performed By: #### U MICRO, UACSIND #### [facility] [address] [address] [address] Forrest Carrillo RBC 0-2 Normal 0-2 [facility] Comment on above: Performed By: #### U MICRO, UACSIND #### [facility] [address] [address] [address] Forrest Carrillo WBC NONE SEEN Normal NONE SEEN [facility] Comment on above: Performed By: #### U MICRO, UACSIND #### [facility] [address] [address] [address] Forrest Carrillo GROUP B STREP CULTUREon S. agalactiae Ag Ql (Unsp spec) Culture Observations: NEGATIVE FOR GROUP B STREPTOCOCCUS. Normal [facility] Comment on above: Performed By: #### G BSCX ####[facility] [address] [address]Dr. Forrest Carrillo US PREG BIOPHY W NON STRESSo n 09-06-2021 US PREG BIOPHY W NON STRESS EXAMINATION: US PREG BIOPHY W NON STRESS HISTORY: Gestational diabetes mellitus COMPARISON: Ultrasound biophysical 08/30/2021 TECHNIQUE: Ultrasound biophysical profile was performed. FINDINGS: BREATHING MOVEMENTS: 2.0 GROSS BODY MOVEMENTS: 2.0 TONE: 2.0 QUALITATIVE AMNIOTIC FLUID VOLUME: 2.0 PRESENTATION: CEPHALIC HEART RATE: 140.6 bpm bpm. AMNIOTIC FLUID VOLUME: 10.7 cm GESTATIONAL AGE: 36 weeks 1 days CONCLUSION: Total biophysical profile score 8.0. Electronically authenticated by: LONG PIERRE Date: 2021-09-06 18:45 Normal [facility] US PREG GROWTHon 09-06-2021 US PREG GROWTH EXAMINATION: US PREG GROWTH HISTORY: Gestational diabetes mellitus COMPARISON: Ultrasound growth 08/09/2021 FINDINGS: Heart Rate: 140.6 bpm Number: 1.0 Position: CEPHALIC Amniotic Fluid Volume: 10.7 cm Maximum Vertical Pocket: 4.5 cm BIOMETRY: BPD: 9.1 cm cm; 36 weeks 6 days; 79% HC: 35.3 cmcm; 41 weeks 2 days; >97% AC: 39.2 cm cm; ; >97% FL: 7.1 cm cm; 36 weeks 4 days; 59% EFW: 4242.9 grams; > 97% FL/AC: 18.2 FL/BPD: 78.6 HC/AC: 0.9 GESTATIONAL AGE: Age by EDC: 36 weeks 1 days JERARDO by EDC: 10/03/2021 Age by US: 38 weeks, 2 days JERARDO by US: 09/18/2021 IMPRESSION: 1. Single live intrauterine with growth detailed above. 2. Estimated weight is greater than 97th percentile. Electronically authenticated by: LONG PIERRE Date: 2021-09-06 18:39 Normal [facility] US PREG BIOPHY W NON STRESSo n 08-30-2021 US PREG BIOPHY W NON STRESS EXAMINATION: US PREG BIOPHY W NON STRESS HISTORY: Gestational diabetes mellitus COMPARISON: Ultrasound biophysical 08/23/2021 TECHNIQUE: Ultrasound biophysical profile was performed. FINDINGS: BREATHING MOVEMENTS: 2.0 GROSS BODY MOVEMENTS: 2.0 TONE: 2.0 QUALITATIVE AMNIOTIC FLUID VOLUME: 2.0 PRESENTATION: Cephalic HEART RATE: 158.8 bpm bpm. AMNIOTIC FLUID VOLUME: 10.8 cm GESTATIONAL AGE: 35 weeks 1 days CONCLUSION: Total biophysical profile score 8.0. Electronically authenticated by: LONG PIERRE Date: 2021-08-30 16:38 Normal [facility] US PREG BIOPHY W NON STRESSo n 08-23-2021 US PREG BIOPHY W NON STRESS EXAMINATION: US PREG BIOPHY W NON STRESS HISTORY: Gestational diabetes mellitus COMPARISON: Ultrasound biophysical 08/19/2021 TECHNIQUE: Ultrasound biophysical profile was performed. FINDINGS: BREATHING MOVEMENTS: 2.0 GROSS BODY MOVEMENTS: 2.0 TONE: 2.0 QUALITATIVE AMNIOTIC FLUID VOLUME: 2.0 PRESENTATION: Cephalic HEART RATE: 133.0 bpm bpm. AMNIOTIC FLUID VOLUME: 14.6 cm GESTATIONAL AGE: 34 weeks 1 days CONCLUSION: Total biophysical profile score 8.0. Electronically authenticated by: LONG PIERRE Date: 2021-08-23 21:32 Normal [facility] US PREG BIOPHY W NON STRESSo n 08-19-2021 US PREG BIOPHY W NON STRESS EXAMINATION: US PREG BIOPHY W NON STRESS HISTORY: Gestational diabetes mellitus COMPARISON: No relevant comparison available. TECHNIQUE: Ultrasound biophysical profile was performed in the radiology department. FINDINGS: BREATHING MOVEMENTS: 2.0 GROSS BODY MOVEMENTS: 2.0 TONE: 2.0 QUALITATIVE AMNIOTIC FLUID VOLUME: 2.0 PRESENTATION: CEPHALIC HEART RATE: 139.9 bpm H.B./min AMNIOTIC FLUID VOLUME: 11.9 cm cm GESTATIONAL AGE: 33 weeks 4 days CONCLUSION: Total biophysical profile score: 8.0 Electronically authenticated by: RUBI JACKSON Date: 2021-08-19 15:25 Normal [facility] US PREG BIOPHY W NON STRESSo n 08-16-2021 US PREG BIOPHY W NON STRESS EXAMINATION: US PREG BIOPHY W NON STRESS HISTORY: Gestational diabetes mellitus COMPARISON: No relevant comparison available. TECHNIQUE: Ultrasound biophysical profile was performed in the radiology department. non-reactive stress testing was performed by nursing staff in the birthing center. FINDINGS: BREATHING MOVEMENTS: 2.0 GROSS BODY MOVEMENTS: 2.0 TONE: 2.0 QUALITATIVE AMNIOTIC FLUID VOLUME: 2.0 PRESENTATION: Cephalic HEART RATE: 140.6 bpm H.B./min AMNIOTIC FLUID VOLUME: 13.2 cm cm GESTATIONAL AGE: 33 weeks 1 days CONCLUSION: Total biophysical profile score: 8.0 Electronically authenticated by: RUBI JACKSON Date: 2021-08-16 16:08 Normal [facility] US PREG BIOPHY W NON STRESSo n 08-10-2021 US PREG BIOPHY W NON STRESS EXAMINATION: US PREG BIOPHY W NON STRESS HISTORY: Gestational diabetes mellitus COMPARISON: Ultrasound growth 07/14/2021 TECHNIQUE: Ultrasound biophysical profile was performed. FINDINGS: BREATHING MOVEMENTS: 2.0 GROSS BODY MOVEMENTS: 2.0 TONE: 2.0 QUALITATIVE AMNIOTIC FLUID VOLUME: 2.0 PRESENTATION: Cephalic HEART RATE: 139.9 bpm bpm. AMNIOTIC FLUID VOLUME: 15.8 cm GESTATIONAL AGE: 32 weeks 1 days CONCLUSION: Total biophysical profile score 8.0. Electronically authenticated by: LONG PIERRE Date: 2021-08-10 13:01 Normal [facility] US PREG GROWTHon 08-09-2021 US PREG GROWTH EXAMINATION: US PREG GROWTH HISTORY: Gestational diabetes mellitus COMPARISON: Ultrasound growth 07/14/2021 FINDINGS: Heart Rate: 139.9 bpm Number: 1.0 Position: Cephalic Amniotic Fluid Volume: 15.8 cm Maximum Vertical Pocket: 7.2 cm BIOMETRY: BPD: 8.7 cm cm; 35 weeks 1 days; >97% HC: 30.6 cmcm; 34 weeks 1 days; 66% AC: 34.1 cm cm; 38 weeks 0 days; >97% FL: 6.4 cm cm; 33 weeks 0 days; 63% EFW: 2841.3 grams; >97% FL/AC: 18.8 FL/BPD: 73.7 HC/AC: 0.9 GESTATIONAL AGE: Age by EDC: 32 weeks 1 days JERARDO by EDC: 10/03/2021 Age by US: 35 weeks, 1 day JERARDO by US: 09/12/2021 IMPRESSION: 1. Single live intrauterine . 2. Estimated weight is greater than 97th percentile. Electronically authenticated by: LONG PIERRE Date: 2021-08-09 17:19 Normal [facility] US PREG GROWTHon 07-15-2021 US PREG GROWTH EXAMINATION: US PREG GROWTH HISTORY: Gestational diabetes mellitus COMPARISON: No relevant comparison available. FINDINGS: Heart Rate: 151.0 bpm Amniotic Fluid Volume: 18.6 cm Number: 1.0 Position: Breech presentation, longitudinal lie Maximum Vertical Pocket: 3.5 cm cm 7.8 cm cm 4.3 cm cm 3.0 cm cm BIOMETRY: BPD: 7.7 cm cm; 30 weeks 6 days; 95% HC: 29.1 cmcm; 32 weeks 1 days greater than 97% AC: 27.9 cm cm; 32 weeks 0 days greater than 97% FL: 6.0 cm cm; 31 weeks 2 days; 96.1 % % EFW: 1810.4 grams, 4 lbs. 0 oz., greater than 97% FL/AC: 21.6 FL/BPD: 78.3 HC/AC: 1.1 GESTATIONAL AGE: Age by EDC: 28 weeks 3 days JERARDO by EDC: 10/03/2021 Age by US: 31 weeks 4 days JERARDO by US: 09/11/2021 IMPRESSION: Large for gestational age Electronically authenticated by: RUBI JACKSON Date: 2021-07-15 07:12 Normal [facility] PAP ACOG PANEL 2: 30 to 65on 06-20-2021 . . Normal [facility] Comment on above: Result Comment: Perf ormed at: WB Performed By: #### U MICRO, UACSIND #### [facility] [address] [address] [address] Forrest Carrillo Age Gdln ACOG Testing 30-65 Normal [facility] Comment on above: Performed By: #### U MICRO, UACSIND #### [facility] [address] [address] [address] Forrest Carrillo DIAGNOSIS: Comment Normal [facility] Comment on above: Result Comment: NEGA TIVE FOR INTRAEPITHELIAL LESION OR MALIGNANCY. Performed at: WB Performed By: #### U MICRO, UACSIND #### [facility] [address] [address] [address] Forrest Carrillo HPV Aptima Negative Normal Negative [facility] Comment on above: Result Comment: This nucleic acid amplification test detects fourteen high-risk HPV types (16,18,31,33,35,39,45,51,52,56,58,59,66,68) without differentiation. Performed at: =G Performed By: #### U MICRO, UACSIND #### [facility] [address] [address] [address] Forrest Carrillo Methodology: Comment Normal [facility] Comment on above: Result Comment: This liquid based ThinPrep(R) pap test was screened with the use of an image guided system. Performed at: WB Performed By: #### U MICRO, UACSIND #### [facility] [address] [address] [address] Forrest Carrillo Note: Comment Normal [facility] Comment on above: Result Comment: The Pap smear is a screening test designed to aid in the detection of premalignant and malignant conditions of the uterine cervix. It is not a diagnostic procedure and should not be used as the sole means of detecting cervical cancer. Both false-positive and false-negative reports do occur. . Performed at: WB Performed By: #### U MICRO, UACSIND #### [facility] [address] [address] [address] Forrest Carrillo Performed by: Comment Normal [facility] Comment on above: Result Comment: Jun Fox Professional Services Manager (ASCP) Performed at: WB Performed By: #### U MICRO, UACSIND #### [facility] [address] [address] [address] Forrest Carrillo Specimen adequacy: Comment Normal [facility] Comment on above: Result Comment: Sati sfactory for evaluation. Endocervical and/or squamous metaplastic cells (endocervical component) are present. Performed at: WB Performed By: #### U MICRO, UACSIND #### [facility] [address] [address] [address] Forrest Carrillo CHLAMYDIA/GONOCOCCUS BRIANNA ( AB/URINE/PAPon 06-15-2021 Chlamydia trachomatis, BRIANNA Negative Normal Negative [facility] Comment on above: Performed By: #### P OCGLUC #### [facility] [address] [place] [address] Dr. Forrest Carrillo Neisseria gonorrhoeae, BRIANNA Negative Normal Negative [facility] Comment on above: Performed By: #### P OCGLUC #### [facility] [address] [address] [address] Forrest Carrillo VAGINITIS/VAGINOSIS DNA PROB Kenneth 06-15-2021 Suki species Negative Normal Negative [facility] Comment on above: Performed By: #### V AGINT ####[facility] [id number] [address]DrKatlin Carrillo Gardnerella vaginalis Negative Normal Negative [facility] Comment on above: Performed By: #### V AGINT ####[facility] [address] [address]DrKatlin Carrillo Trichomonas vaginalis Negative Normal Negative [facility] Comment on above: Performed By: #### V AGINT ####[facility] [address] [address]Dr. Forrest Carrillo COVID Quick Testingon 2020 Result Negative [employer] Other Vital Signs Date Time Vital Sign Value Performing Clinician Facility 01-22-2024 14:57-0500 Body height 170.2 cm Lauro Gates MD Work Phone: [facility] 01-22-2024 14:57-0500 Body mass index (BMI) [Ratio] 49.34 kg/m2 Lauro Gates MD Work Phone: [facility] 01-22-2024 14:57-0500 Body temperature 97.81 [degF] Lauro Gates MD Work Phone: [facility] 01-22-2024 14:57-0500 Body weight 142.88 kg Lauro Gates MD Work Phone: [facility] 01-22-2024 14:57-0500 Diastolic blood pressure 78 mm[Hg] Lauro Gates MD Work Phone: [facility] 01-22-2024 14:57-0500 Heart rate 100 /min Lauro Gates MD Work Phone: [facility] 01-22-2024 14:57-0500 Respiratory rate 22 /min Lauro Gates MD Work Phone: [facility] 01-22-2024 14:57-0500 SaO2% (BldA) [Mass fraction] 98 % Lauro Gates MD Work Phone: [facility] 01-22-2024 14:57-0500 Systolic blood pressure 146 mm[Hg] Lauro Gates MD Work Phone: [facility] 10-23-2023 15:26-0400 Body height 170.2 cm Lauro Gates MD Work Phone: [facility] 10-23-2023 15:26-0400 Body mass index (BMI) [Ratio] 49.65 kg/m2 Lauro Gates MD Work Phone: [facility] 10-23-2023 15:26-0400 Body temperature 97.11 [degF] Lauro Gates MD Work Phone: [facility] 10-23-2023 15:26-0400 Body weight 143.79 kg Lauro Gates MD Work Phone: [facility] 10-23-2023 15:26-0400 Diastolic blood pressure 68 mm[Hg] Lauro Gates MD Work Phone: [facility] 10-23-2023 15:26-0400 Heart rate 82 /min Lauro Gates MD Work Phone: [facility] 10-23-2023 15:26-0400 Respiratory rate 20 /min Lauro Gates MD Work Phone: [facility] 10-23-2023 15:26-0400 SaO2% (BldA) [Mass fraction] 99 % Lauro Gates MD Work Phone: [facility] 10-23-2023 15:26-0400 Systolic blood pressure 144 mm[Hg] Lauro Gates MD Work Phone: [facility] 03-20-2023 16:32-0500 Body height 168.91 cm [facility] 03-20-2023 16:32-0500 Body mass index (BMI) [Ratio] 51.5 kg/m2 [facility] 03-20-2023 16:32-0500 Body temperature 96.9 [degF] [facility] 03-20-2023 16:32-0500 Body weight 147.19 kg [facility] 03-20-2023 16:32-0500 Heart rate 93 /min [facility] 03-20-2023 16:32-0500 Respiratory rate 18 /min [facility] 03-20-2023 16:32-0500 SaO2% (BldA) [Mass fraction] 97 % [facility] 04-24-2022 19:50-0400 Body height 168.91 cm Marsha Mendez Other [employer] Other 04-24-2022 19:50-0400 Body mass index (BMI) [Ratio] 51.82 kg/m2 Marsha Mendez Other [employer] Other 04-24-2022 19:50-0400 Body temperature 97.5 [degF] Marsha Mendez Other [employer] Other 04-24-2022 19:50-0400 Body weight 147.87 kg Marsha Mendez Other [employer] Other 04-24-2022 19:50-0400 Respiratory rate 18 /min Marsha Mendez Other [employer] Other 04-24-2022 19:50-0400 SaO2% (BldA) [Mass fraction] 97 % Marsha Mendez Other [employer] Other 04-15-2022 13:30-0500 Body height 168.91 cm Latisha Esqueda Other [employer] Other 04-15-2022 13:30-0500 Body mass index (BMI) [Ratio] 51.51 kg/m2 Latisha Cantuault Other [employer] Other 04-15-2022 13:30-0500 Body temperature 97.6 [degF] Latisha Cantuault Other [employer] Other 04-15-2022 13:30-0500 Body weight 146.97 kg Latisha Cantuault Other [employer] Other 04-15-2022 13:30-0500 Diastolic blood pressure 101 mm[Hg] Latisha Dheeraj Other [employer] Other 04-15-2022 13:30-0500 Respiratory rate 8 /min Latisha Dheeraj Other [employer] Other 04-15-2022 13:30-0500 SaO2% (BldA) [Mass fraction] 95 % Latisha Esqueda Other [employer] Other 04-15-2022 13:30-0500 Systolic blood pressure 142 mm[Hg] Latisha Esqueda Other [employer] Other 11-04-2020 13:00-0400 Body height 168.91 cm Latisha Esqueda Other [employer] Other 11-04-2020 13:00-0400 Body mass index (BMI) [Ratio] 45.94 kg/m2 Latisha Esqueda Other [facility] Other 11-04-2020 13:00-0400 Body temperature 97.8 [degF] Latisha Esqueda Other [employer] Other 11-04-2020 13:00-0400 Body weight 131.09 kg Latisha Esqueda Other [employer] Other 11-04-2020 13:00-0400 Respiratory rate 18 /min Latisha Esqueda Other [employer] Other 11-04-2020 13:00-0400 SaO2% (BldA) [Mass fraction] 98 % Latisha Esqueda Other [employer] Other Encounters Encounter Date Encounter Type Care Provider Facility Start: 04-21-2024 End: 04-21-2024 ambulatory LAURO GATES Not Available Start: 04-13-2024 End: 04-14-2024 Refill Lauro Gates MD Work Phone: [facility] Comment on above: Type 2 diabetes patrick itus with hyperglycemia ([facility]) Start: 01-22-2024 End: 01-22-2024 Office outpatient visit 25 minutes Lauro Gates MD Work Phone: [facility] Comment on above: Type 2 diabetes patrick itus with hyperglycemia, with long-term current use of insulin ([facility]) (Primary Dx); Essential hypertension, benign ([facility]); Class 3 severe obesity due to excess calories with serious comorbidity and body mass index (BMI) of 45.0 to 49.9 in adult ([facility]); Acute bronchitis due to other specified organisms Start: 01-22-2024 End: 01-22-2024 ambulatory LAURO GATES Not Available Start: 01-22-2024 End: 01-22-2024 Bamboo flowsheet Lauro Gates MD Work Phone: [facility] Start: 01-22-2024 End: 01-22-2024 Bamboo flowsheet Lauro Gates MD Work Phone: [facility] Start: 10-26-2023 End: 10-26-2023 Clinisync Result Encounter Lauro Gates MD Work Phone: [facility] External Department Unsolicited Start: 10-26-2023 End: 10-26-2023 Clinisync Result Encounter Lauro Gates MD Work Phone: [facility] External Department Unsolicited Start: 10-23-2023 End: 10-23-2023 ambulatory LAURO GATES Not Available Start: 10-23-2023 End: 10-23-2023 Office outpatient visit 15 minutes Lauro Gates MD Work Phone: [facility] Comment on above: Type 2 diabetes patrick itus with hyperglycemia, with long-term current use of insulin ([facility]) (Primary Dx); Essential hypertension, benign ([facility]); Immunodeficiency due to conditions classified elsewhere ([facility]) Start: 10-23-2023 End: 10-23-2023 Bamboo flowsheet Lauro Gates MD Work Phone: [facility] Start: 10-23-2023 End: 09-17-2024 Bamboo flowsheet Lauro Gates MD Work Phone: [facility] Start: 07-05-2023 End: 07-05-2023 ambulatory LAURO GATES Not Available Start: 03-27-2023 Patient encounter procedure Lauro Gates MD Work Phone: [facility] Start: 03-20-2023 End: 03-20-2023 ambulatory [facility] Work Phone: Start: 03-20-2023 End: 03-20-2023 Patient encounter procedure [facility] Physician [facility] Work Phone: Start: 05-01-2022 End: 05-02-[address] RUBI JACKSON Facility:[facility] Start: 04-28-2022 Encounter for genera l adult medical examination without abnormal findings DR LAURO GATES [facility] Start: 04-26-2022 End: 04-27-[address] RUBI JACKSON Facility:[facility] Start: 04-24-2022 End: 04-24-2022 ambulatory Marsha Mendez Other [employer] Other Start: 04-24-2022 Office outpatient vi sit 15 minutes Marsha Mendez [facility] Start: 04-20-2022 End: 04-21-[address] LAURO GATES Facility:[facility] Start: 04-20-2022 End: 04-21-2022 Encounter for general adult medical examination without abnormal findings DR LAURO GATES Facility:[facility] Start: 04-15-2022 End: 04-15-2022 ambulatory Latisha Esqueda Other [employer] Other Start: 04-15-2022 Office outpatient vi sit 15 minutes Latisha Esqueda [facility] Start: 04-12-2022 End: 04-13-[address] RUBI JACKSON Facility:[facility] Start: 04-06-2022 End: 04-07-[address] RUBI JACKSON Facility:[facility] Start: 03-23-2022 End: 03-24-[address] RUBI JACKSON Facility:[facility] Start: 03-17-2022 End: 03-18-[address] RUBI JACKSON Facility:[facility] Start: 03-08-2022 End: 03-09-[address] RUBI JACKSON Facility:[facility] Start: 03-03-2022 End: 03-04-[address] RUBI JACKSON Facility:[facility] Start: 01-18-2022 End: 01-19-[address] LAURO GATES Facility:[facility] Start: 12-19-2021 End: 12-19-[address] LAURO GATES Facility:[facility] Start: 12-05-2021 End: 12-06-[address] LAURO GATES Facility:[facility] Start: 09-12-2021 End: 09-16-2021 Evaluation and management of inpatient DR DAYSI DIETZ . Facility:[facility] Start: 09-09-2021 End: 09-09-[address] MARY ARREDONDO . Facility:[facility] Start: 09-07-2021 End: 09-07-[address] ADYSI DIETZ . Facility:[facility] Start: 09-06-2021 End: 09-06-[address] DAYSI DIETZ . Facility:[facility] Start: 09-02-2021 End: 09-02-[address] NONE LISTED REQUEST Facility:[facility] Start: 08-30-2021 End: 08-30-[address] NONE LISTED REQUEST Facility:[facility] Start: 08-26-2021 End: 08-26-[address] DAYSI DIETZ . Facility:[facility] Start: 08-23-2021 End: 08-23-[address] DAYSI DIETZ . Facility:[facility] Start: 08-19-2021 End: 08-19-[address] DAYSI DIETZ . Facility:[facility] Start: 08-16-2021 End: 08-16-[address] DAYSI DIETZ . Facility:[facility] Start: 08-12-2021 End: 08-12-[address] NONE LISTED REQUEST Facility:[facility] Start: 08-09-2021 End: 08-09-[address] NONE LISTED REQUEST Facility:[facility] Start: 07-14-2021 End: 07-15-[address] DAYSI DIETZ . Facility:[facility] Start: 06-14-2021 End: 06-14-[address] DAYSI DIETZ . Facility:[facility] Start: 11-04-2020 (URG) Urgent Care Visit Latisha Baig harshildaniel [facility] Start: 02-28-2017 End: 03-01-2017 Ambulatory DAYSI DIETZ Facility:[facility] Procedures Date Procedure Procedure Detail Performing Clinician Start: 10-26-2023 TB MICROALBUMIN, RAND UR Lauro Gates MD Work Phone: Start: 10-05-2022 Mammography Lauro espinosa MD Work Phone: Start: 09-12-2021 Drainage of Amniotic Fluid, Therapeutic from Products of Conception, Via Natural or Artificial Opening DR DAYSI DIETZ . Start: 09-12-2021 Extraction of Produc ts of Conception, Low Cervical, Open Approach DR DAYSI DIETZ . Start: 09-12-2021 Introduction of Othe r Hormone into Peripheral Vein, Percutaneous Approach DR DAYSI DIETZ . Plan of Treatment Date Care Activity Detail Author Start: 10-25-2024 Urine screening for protein Diabetes: Urine Protein Screening [facility] Start: 10-16-2024 Glaucoma screening Diabetes: R etinopathy Screening [facility] Start: 04-24-2024 Hemoglobin A1c measurement Diabetes: Hemoglobin A1C [facility] Start: 04-21-2024 End: 04-21-2024 Patient encounter procedure 04/21/2024 2:45 PM EDT Office Visit [facility] [address] [place] [address] Lauro Gates MD [address] [place] [address] [facility] Start: 01-22-2024 End: 01-22-2024 Patient encounter procedure [facility] Comment on above: Arrived Start: 11-10-2023 Hemoglobin A1c measurement Diabetes: Hemoglobin A1C [facility] Start: 10-23-2023 End: 10-22-2024 Albumin, urine, random Albumin, urine, random Lab Routine Type 2 diabetes mellitus with hyperglycemia, with long-term current use of insulin ([facility]) Expected: 10/23/2023 (Approximate), Expires: 10/22/2024 [facility] Work Phone: Comment on above: Expected: 10/23/2023 (Approximate), Expires: 10/22/2024 Start: 10-23-2023 End: 10-22-2024 Hemoglobin A1c/Hemoglobin.total in Blood Hemoglobin A1c Lab Routine Type 2 diabetes mellitus with hyperglycemia, with long-term current use of insulin ([facility]) Expected: 10/23/2023 (Approximate), Expires: 10/22/2024 [facility] Comment on above: Expected: 10/23/2023 (Approximate), Expires: 10/22/2024 Start: 10-07-2023 Influenza vaccination Influenza Vacc ine (#1) [facility] Start: 10-06-2023 Screening for malign ant neoplasm of breast Mammogram [facility] Start: 10-06-2023 Urine screening for protein Diabetes: Urine Protein Screening [facility] Start: 11-11-2021 Hemoglobin A1c measurement Diabetes: Hemoglobin A1C [facility] Start: 2012 Screening for malign ant neoplasm of cervix [facility] Start: 05-07-2003 Screening for malign ant neoplasm of cervix Pap Smear [facility] Immunizations Immunization Date Immunization Notes Care Provider Fa ever 11-03-2022 influenza virus vacc ine, unspecified formulation Lauro Gates MD Work Phone: [facility] Payers Date Payer Category Payer Private Health Insurance [employer] [id number] 2022 Unknown [employer]ON[employer]ATH [employer] ATH [id number] 2022-Present [phone] [address] [place] [address] [id number]. [id number] 1982 Unknown [id number] 2.16.840.1.751403.3.579.2. 593 1982 Unknown [id number] 2.16.840.1.259908.3.579.2. 593 1982 Unknown [id number] 2.16.840.1.995593.3.579.2. 593 1982 Unknown [id number] 2.16.840.1.535697.3.579.2. 593 1982 Unknown [id number] 2.16.840.1.710133.3.579.2. 593 1982 Unknown [id number] 2.16.840.1.461967.3.579.2. 593 1982 Unknown [id number] 2.16.840.1.033329.3.579.2. 593 1982 Unknown [id number] 2.16.840.1.015727.3.579.2. 593 1982 Unknown [id number] 2.16.840.1.005425.3.579.2. 593 1982 Unknown [id number] 2.16.840.1.078461.3.579.2. 593 1982 Unknown [id number] 2.16.840.1.133956.3.579.2. 593 1982 Unknown [id number] 2.16.840.1.820223.3.579.2. 593 1982 Unknown [id number] 2.16.840.1.582847.3.579.2. 593 1982 Unknown [id number] 2.16.840.1.467725.3.579.2. 593 1982 Unknown [id number] 2.16.840.1.328974.3.579.2. 593 1982 Unknown [id number] 2.16840.1.887196.3.579.2. 593 1982 Unknown [id number] 2.16.840.1.802410.3.579.2. 593 1982 Unknown [id number] 2.16840.1.287860.3.579.2. 593 1982 Unknown [id number] 2.16840.1.887411.3.579.2. 593 1982 Unknown [id number] 2.840.1.986368.3.579.2. 593 1982 Unknown [id number] 2.840.1.866784.3.579.2 593 1982 Unknown [id number] 2840.1.888136.3.579.2. 593 1982 Unknown [id number] 2.840.1.967863.3.579.2. 593 1982 Unknown [id number] 2.840.1.557194.3.579.2. 593 1982 Unknown [id number] 2.840.1.814341.3.579.2. 593 1982 Unknown [id number] 840.1.274885.3.579.2. 593 1982 Unknown [id number] .840.1.757236.3.579.2. 1259 1982 Unknown [id number] 2.840.1.866507.3.579.2. 1259 1982 Unknown [id number] .840.1.396490.3.579.2. 1259 1982 Unknown [id number] 2.840.1.023504.3.579.2. 1259 1959 Unknown [id number] 2.16.840.1.629723.19 1959 Unknown [id number] 2.16.840.1.513922.19 1959 Unknown [id number] 2.16.840.1.017653.19 Self-pay Self Pay [id number] Unknown MMO [id number] Unknown [employer]/BS [id number] Unknown [facility] [id number] Social History Date Type Detail Facility Unknown if ever smoked [facility] [employer] Other Start: 10-23-2023 End: 01-22-2024 Sex Assigned At [facility] [employer] Other Start: 03-20-2023 End: 03-27-2023 Tobacco smoking status NHIS Never smoked tobacco (finding) [facility] Start: 1980 Sex Assigned At Female [facility] Start: 03-27-2023 Tobacco use and exposure Smokeless tobacco non-user [facility] Start: 10-23-2023 End: 01-22-2024 History of Social function [facility] Start: 1980 Sex assigned at Not on file [facility] How often do you nee d to have someone help you when you read instructions, pamphlets, or other written material from your doctor or pharmacy [SILS] Never [facility] Do you belong to any clubs or organizations such as presybeterian groups, unions, fraternal or athletic groups, or school groups? No [facility] Are you now , , , , never or living with a partner? [facility] How often to you hav e a drink containing alcohol? Never [facility] Do you feel stress - tense, restless, nervous, or anxious, or unable to sleep at night because your mind is troubled all the time - these days [OSQ] To some extent [facility] (I/We) worried wheth er (my/our) food would run out before (I/we) got money to buy more. Never true [facility] Medical Equipment Procedure Code Equipment Code Equipment Origin al Text Equipment Identifier Dates USE TO 1 STRIP 3 TIMES A DAY [id number] Start: 01-05-2023 Clinical Notes 11-04-2020 to 01-22-2024 Lauro Gates MD - 01/22/2024 3:31 PM Michelle Gates MD - 01/22/2024 3:30 PM Michelle Gates MD - 01/22/2024 3:30 PM Michelle Gates MD - 01/22/2024 3:30 PM EST Note Date & Type Note Facility 01-22-2024 History of Presen t illness Narrative Associated Problem(s): Acute bronchitis due to other specified organisms Take antibiotics for 7 days. Use sudafed or other decongestants as needed. Use robitussin or robittussin-DM for cough. Use afrin for congestion but no longer than 3 days. Use mucinex to bring up phlegm. Use motrin or tylenol for fever, aches or pains. Increase fluid intake and rest. Should improve over next 5-7 days and if no better or worse call office. Associated Problem(s): Type 2 diabetes mellitus with hyperglycemia, with long-term current use of insulin (CMS/HCC) Reports BS improved and due for A1C. Increase ozempic. Stick to ADA diet and limit carbs. Associated Problem(s): Essential hypertension, benign (CMS/HCC) BP improved and monitor PRN. Discussed DASH diet. Associated Problem(s): Class 3 severe obesity due to excess calories with serious comorbidity and body mass index (BMI) of 45.0 to 49.9 in adult ([facility]) Weight down 2 pounds since last visit. Increase ozempic. Images from the original note were not included. Subjective Patient ID: Mickie Brennan is a 43 y.o. female who presents for Cough (Ongoing since end of november). Follow up DM, HTN, and weight. C/o cough for the past several weeks. At times worse and coughing spells. No SOB. Not notice triggers and can be at night or day. Mild congestion and ears plugged. Notice postnasal drip. with similar cough and now kids with cough. BS stable and improving. Last A1C 7.5. Notice BS starts to go up when due for ozempic. Not checking BP away from office but okay today. Taking medication daily and tolerating without side effects. Weight down 2 pounds. Tries to watch diet and eat healthy. Increased fruits and vegetables. Smaller portions and limits snacking. Tries to limit total daily calories. Review of Systems Respiratory: Negative for cough, shortness of breath and wheezing. Cardiovascular: Negative for chest pain and palpitations. Gastrointestinal: Negative for abdominal pain, diarrhea, nausea and vomiting. Genitourinary: Negative for dysuria. Objective Physical Exam Constitutional: General: She is not in acute distress. Appearance: Normal appearance. HENT: Head: Normocephalic. Right Ear: Tympanic membrane normal. Left Ear: Tympanic membrane normal. Eyes: Extraocular Movements: Extraocular movements intact. Pupils: Pupils are equal, round, and reactive to light. Cardiovascular: Rate and Rhythm: Normal rate and regular rhythm. Heart sounds: No murmur heard. No friction rub. No gallop. Pulmonary: Effort: Pulmonary effort is normal. Breath sounds: Normal breath sounds. No wheezing, rhonchi or rales. Abdominal: General: Bowel sounds are normal. There is no distension. Palpations: Abdomen is soft. Tenderness: There is no abdominal tenderness. There is no guarding or rebound. Musculoskeletal: Cervical back: Neck supple. Right lower leg: No edema. Left lower leg: No edema. Neurological: Mental Status: She is alert. Assessment/Plan Problem List Items Addressed This Visit Essential hypertension, benign ([facility]/HCC) BP improved and monitor PRN. Discussed DASH diet. Type 2 diabetes mellitus with hyperglycemia, with long-term current use of insulin ([facility]) - Primary Reports BS improved and due for A1C. Increase ozempic. Stick to ADA diet and limit carbs. Relevant Medications Semaglutide, 2 MG/DOSE, (Ozempic, 2 MG/DOSE,) 8 MG/3ML solution pen-injector Class 3 severe obesity due to excess calories with serious comorbidity and body mass index (BMI) of 45.0 to 49.9 in adult ([facility]) Weight down 2 pounds since last visit. Increase ozempic. Acute bronchitis due to other specified organisms Take antibiotics for 7 days. Use sudafed or other decongestants as needed. Use robitussin or robittussin-DM for cough. Use afrin for congestion but no longer than 3 days. Use mucinex to bring up phlegm. Use motrin or tylenol for fever, aches or pains. Increase fluid intake and rest. Should improve over next 5-7 days and if no better or worse call office. Relevant Medications levoFLOXacin (Levaquin) 750 MG tablet documented in this encounter [facility] 10-23-2023 History of Presen t illness Narrative Associated Problem(s): Type 2 diabetes mellitus with hyperglycemia, with long-term current use of insulin ([facility]) Reports BS improved and due for A1C. Increase ozempic. Stick to ADA diet and limit carbs. Associated Problem(s): Essential hypertension, benign ([facility]/HCC) BP improved and monitor BP PRN. Discussed DASH diet. Images from the original note were not included. Subjective Patient ID: Mickie Brennan is a 43 y.o. female who presents for Follow-up (3m). Follow up DM and HTN. Patient feels well today. Reports BS improved and ranges 103-200 but averages around 160. Tries to eat well and stick to ADA diet. Still on lantus and tolerating ozempic. Checking BP PRN and typically controlled. BP okay today. Taking medication daily and tolerating without side effects. Weight down 2 pounds since last visit. Review of Systems Respiratory: Negative for cough, shortness of breath and wheezing. Cardiovascular: Negative for chest pain and palpitations. Gastrointestinal: Negative for abdominal pain, diarrhea, nausea and vomiting. Genitourinary: Negative for dysuria. Objective Physical Exam Constitutional: General: She is not in acute distress. Appearance: Normal appearance. HENT: Head: Normocephalic. Right Ear: Tympanic membrane normal. Left Ear: Tympanic membrane normal. Eyes: Extraocular Movements: Extraocular movements intact. Pupils: Pupils are equal, round, and reactive to light. Cardiovascular: Rate and Rhythm: Normal rate and regular rhythm. Heart sounds: No murmur heard. No friction rub. No gallop. Pulmonary: Effort: Pulmonary effort is normal. Breath sounds: Normal breath sounds. No wheezing, rhonchi or rales. Abdominal: General: Bowel sounds are normal. There is no distension. Palpations: Abdomen is soft. Tenderness: There is no abdominal tenderness. There is no guarding or rebound. Musculoskeletal: Cervical back: Neck supple. Right lower leg: No edema. Left lower leg: No edema. Neurological: Mental Status: She is alert. Assessment/Plan Problem List Items Addressed This Visit Essential hypertension, benign (CMS/HCC) BP improved and monitor BP PRN. Discussed DASH diet. Type 2 diabetes mellitus with hyperglycemia, with long-term current use of insulin (CMS/HCC) - Primary Reports BS improved and due for A1C. Increase ozempic. Stick to ADA diet and limit carbs. Relevant Medications semaglutide (Ozempic, 1 MG/DOSE,) 4 MG/3ML solution pen-injector Other Relevant Orders Albumin, urine, random Hemoglobin A1c documented in this encounter [facility] 04-24-2022 Evaluation note Encounter Date Diagnosis Assessment Notes Apr, Left otitis media, unspecified otitis media type (ICD-10 - H66.92) Middle ear infection: adult home care material was printed Drink plenty fluids, get plenty of rest. Take the Zithromax as prescribed until gone. Take Tylenol or Motrin as needed for aches pains or fevers. Follow-up with your family physician if no improvement in 2 to 3 days [employer] Other 03-11-2023 Evaluation note* Encounter Date Diagnosis Assessment Notes Treatment Notes Treatment Clinical Notes Apr, Sore throat (ICD-10 - J02.9) Apr, Right acute otitis media (ICD-10 - H66.91) Ear infections are often a secondary infection caused from an URI, the flu or allergies. Take medication as directed. Complete all doses, even if you feel better. Tylenol or ibuprofen can help with pain. Warm pack to area for comfort helps as well. Follow up with primary care provider if no improvement of symptoms. [employer] Other 08-08-2022 NoteDISCHARGE SUMMARY DISCHARGE DATE: 09/17/2021 PRIMARY DIAGNOSES: 1. Intrauterine at 37 weeks. 2. Chronic hypertension. 3. Insulin dependent diabetes. 4. macrosomia. 5. Failure to descend. PROCEDURE: Primary low transverse section. HOSPITAL COURSE: As expected. Please see chart for full details. LABORATORY DATA: Please see chart. COMPLICATIONS: None. DISCHARGE CONDITION: Stable. CONSULTATION: Anesthesia. DISCHARGE INSTRUCTIONS: 1. Diet: Regular. 2. Medications: a. Percocet 5/325 one to two p.o. every 4-6 hours p.r.n. pain. b. Motrin 800 one p.o. every 8 hours p.r.n. pain. 3. Followup in one week. Restrictions: Pelvic rest for 6 weeks. No heavy lifting. May drive when pain free and no longer on narcotics.[facility]08-08-2022 NoteOPERATIVE NOTE OPERATION DATE: 09/12/2021 PROCEDURE: Primary low transverse section. PREOPERATIVE DIAGNOSIS: 1. Intrauterine at 37 weeks. 2. Type 2 diabetes, insulin controlled. 3. Chronic hypertension. 4. Advanced maternal age. 5. Obesity. 6. Gastroesophageal reflux disease. 7. large for gestational age. POSTOPERATIVE DIAGNOSIS: 1. Intrauterine at 37 weeks. 2. Type 2 diabetes, insulin controlled. 3. Chronic hypertension. 4. Advanced maternal age. 5. Obesity. 6. Gastroesophageal reflux disease. 7. large for gestational age. ANESTHESIA: Epidural with Duramorph. SURGEON: Daysi Dietz PHOTOENGRAVING APPRENTICE: EMILY Sheehan URINE OUTPUT: Yellow and clear. BLOOD LOSS: 995 mL. FINDINGS: Viable boy. Apgars 7 at 1 and 8 at 5. Weight 9 pounds 2 ounces. SPECIMEN: Placenta. PROCEDURE NOTE: Patient was taken back to the Operating Room where she was given a spinal anesthesia with Duramorph without difficulty. She was prepped and draped in the normal sterile fashion. A Pfannenstiel skin incision was then made 2 cm above the symphysis pubis and carried down to underlying rectus fascia using a Bovie. The fascia was incised in the midline and extended laterally using Dangelo scissors. Two Shakila clamps were placed on the superior aspect of the fascia and dissected off the underlying rectus muscles. The same was performed on the inferior aspect as well. The muscles were then in the midline. Peritoneum was identified and entered bluntly. The peritoneum was then extended superiorly and inferiorly with good visualization of the bladder. The bladder blade was inserted. A low transverse incision was made on the patient's uterus and extended laterally digitally. The was then delivered atraumatically after the bladder blade was removed in the cephalic position. The cord was clamped and cut. Cord blood was obtained. The was handed off to awaiting team. The patient's placenta was spontaneously delivered. The uterus was then exteriorized. The uterus was cleared of all clots and debris. The bladder blade was reinserted. The patient's uterine incision was closed using #0 Vicryl in a running lock fashion. Excellent hemostasis was assured. The uterus was then returned to the patient's abdomen. The patient's abdomen was copiously irrigated using warm saline. Peritoneal gutters were cleared of all clots and debris. Again excellent hemostasis was assured. The patient's peritoneum was closed using 3-0 Vicryl in a running fashion. The patient's fascia was closed using #0 Vicryl in a running fashion. The patient's skin was closed using 4-0 Vicryl subcuticularly. The patient tolerated the procedure well. Sponge, lap, and needle counts were correct x2. The patient was taken to the Recovery Room in stable condition[id number]* Encounter Date Diagnosis Assessment Notes Treatment Notes Treatment Clinical Notes Oct, Contact with and (suspected) exposure to other viral communicable diseases (ICD-10 - Z20.828) Even though COVID RAPID test is NEGATIVE, I am highly suspicious at this time you may be positive due to the symptoms. Recommend patient follow Quarantine guidelines until you follow up with PCP.. Recommend OTC medication such as Mucinex, Sea salt nasal spray, Cepecol, Tylenol, Zyrtec, as they can help with symptoms Oct, Bronchitis (ICD-10 - J40) Bronchitis is inflammation of openings of lungs. It is not caused from bacteria. Antibiotics are not needed to treat this illness. Take medications as directed. Rest and increase fluid intake. Take meds with food to prevent stomach upset. Use inhaler as needed for SOB. Blood sugars may increase due to steroid treatment so eat lower amount of carbs. Follow up with primary care provider if symptoms do not improve with treatment plan, although it may take a few weeks for the cough to go away. Oct, Left acute otitis media (ICD-10 - H66.92) Ear infections are often a secondary infection caused from an URI, the flu or allergies. Take medication as directed. Complete all doses, even if you feel better. Tylenol or ibuprofen can help with pain. Warm pack to area for comfort helps as well. Follow up with primary care provider if no improvement of symptoms. Oct, Other Additional time spent conducting pre-visit phone call, screening for symptoms, instructions on social distancing, application and removal of PPE, and cleaning of examination room, equipment and supplies was preformed. Patient education given for testing methodology and results. Patient care instructions given in writting by [facility] document. Additional time spent conducting pre-visit phone call, screening for symptoms, instructions on social distancing, application and removal of PPE, and cleaning of examination room, equipment and supplies was preformed. Patient education given for testing methodology and results. Patient care instructions given in writting by [facility] document. [employer] Other Evaluation noteNo assessment information available [facility] Work Phone: Evaluation note* Diagnosis Type 2 diabetes mellitus with hyperglycemia, with long-term current use of insulin ([facility]/HCC)- Primary Essential hypertension, benign (CMS/HCC) Essential hypertension, benign Immunodeficiency due to conditions classified elsewhere (CMS/HCC) documented in this encounter [facility] HealthcareEvaluation note* Diagnosis Type 2 diabetes mellitus with hyperglycemia, with long-term current use of insulin ([facility]/HCC)- Primary Annual physical exam Routine general medical examination at a health care facility Essential hypertension, benign (CMS/HCC) Essential hypertension, benign Type 2 diabetes mellitus with hyperglycemia, with long-term current use of insulin ([facility]/HCC)- Primary Essential hypertension, benign (CMS/HCC) Essential hypertension, benign Bilateral leg edema Edema Gastroesophageal reflux disease without esophagitis Esophageal reflux Morbid obesity due to excess calories ([facility]) Type 2 diabetes mellitus with hyperglycemia, with long-term current use of insulin ([facility])- Primary Essential hypertension, benign (CMS/HCC) Essential hypertension, benign Immunodeficiency due to conditions classified elsewhere ([facility]) Type 2 diabetes mellitus with hyperglycemia, with long-term current use of insulin ([facility]/HCC)- Primary Essential hypertension, benign (CMS/HCC) Essential hypertension, benign Class 3 severe obesity due to excess calories with serious comorbidity and body mass index (BMI) of 45.0 to 49.9 in adult ([facility]) Acute bronchitis due to other specified organisms documented in this encounter [facility] HealthcareEvaluation note* Diagnosis Type 2 diabetes mellitus with hyperglycemia, with long-term current use of insulin ([facility])- Primary Annual physical exam Routine general medical examination at a health care facility Essential hypertension, benign (CMS/HCC) Essential hypertension, benign Type 2 diabetes mellitus with hyperglycemia, with long-term current use of insulin ([facility]/HCC)- Primary Essential hypertension, benign (CMS/HCC) Essential hypertension, benign Bilateral leg edema Edema Gastroesophageal reflux disease without esophagitis Esophageal reflux Morbid obesity due to excess calories ([facility]) Type 2 diabetes mellitus with hyperglycemia, with long-term current use of insulin ([facility]/HCC)- Primary Essential hypertension, benign (CMS/HCC) Essential hypertension, benign Immunodeficiency due to conditions classified elsewhere ([facility]) Type 2 diabetes mellitus with hyperglycemia, with long-term current use of insulin ([facility])- Primary Essential hypertension, benign ([facility]) Essential hypertension, benign Class 3 severe obesity due to excess calories with serious comorbidity and body mass index (BMI) of 45.0 to 49.9 in adult ([facility]) Acute bronchitis due to other specified organisms Type 2 diabetes mellitus with hyperglycemia ([facility]) documented in this encounter [facility] general Narrative - Reported* Type Description Date Medical History HTN Medical History hyperlipidemia Medical History DM type 2 [facility] [employer] Other History general Narrative - Reported* Type Description Date Medical History HTN Medical History hyperlipidemia Medical History DM type 2 Surgical History 1 Hospitalization History child [facility] [employer] Other Summary Purpose Family History No Family History Records Found Relationship Condition Age at Onset Recorded Date/T james father Diabetes mellitus Unknown Type 2 diabetes mellitus Unknown Heart disease Unknown Hypertension Unknown Not Specified Diabetes mellitus Unknown Malignant neoplasm Unknown Advance Directives No Advanced Directives Records Found Advance Directive Response Recorded Date/ Time Advance Directives No November 10, 2017 1:13pm Chief Complaint and Reason for Visit Chief Complaint Cough Additional Source Comments INFORMATION SOURCE (unrecogn ized section and content) DATE CREATED AUTHOR 07/30/2017 Palisade Mariano [facility] DATE CREATED AUTHOR AUTHOR'S ORGANIZ ATION 05/16/2022 [facility] DATE CREATED AUTHOR AUTHOR'S ORGANIZ ATION 04/23/2024 [facility] EPIC REASON FOR VISIT (unrecogniz ed section and content) Reason Comments Follow-up 3m Reason Comments Cough Ongoing since end november Reason Comments Med Refill Care Teams (unrecognized sec tion and content) Team Status: Active Member Role Status Dates Lauro Gates MD Primary Care Provider Active Team Status: Inactive Member Role Status Dates Lauro Gates MD Primary Care Provider Active S tart: March 20, 2023 End: March 20, 2023 Marsha Mendez NP-C Attending Provider Active S tart: March 20, 2023 End: March 20, 2023 [employer] Relationship Specialty Start Date End Date Lauro Gates MD [address] [place] [address] PCP - General Family Medicine 03/05/23 [employer] Relationship Specialty Start Date End Date Lauro Gates MD [address] [place] [phone] [facility] 03/05/23 [employer] Operator Relationship Specialty Start Date End Date Lauro Gates MD [address] [place] [phone] [facility] 03/05/23 [employer] Operator Relationship Specialty Start Date End Date Lauro Gates MD [address] [place] [phone] [facility] 03/05/23 [employer] Operator Relationship Specialty Start Date End Date Lauro Gates MD [address] [place] [phone] [facility] 03/05/23 [employer] Operator Relationship Specialty Start Date End Date Lauro Gates MD [address] [place] [phone] [facility] 03/05/23 Goals (unrecognized section and content) Goals may be documented in a n alternate section FOR RECORDS PERTAINING TO PATIENTS WHO ARE OR HAVE BEEN ENROLLED IN A CHEMICAL DEPENDENCY/SUBSTANCEABUSE PROGRAM, SOME INFORMATION MAY BE OMITTED. This clinical summary was aggregated from multiple sources. Caution should be exercised in using it in the provision of clinical care. This summary normalizes information from multiple sources, and as a consequence, information in this document may materially change the coding, format and clinical context of patient data. In addition, data may be omitted in some cases. CLINICAL DECISIONS SHOULD BE BASED ON THE PRIMARY CLINICAL RECORDS. [facility]. provides no warranty or guarantee of the accuracy or completeness of information in this document.
[2024-05-23 12:09] LABS: Estimated Average Glucose 146 mg/dL; Glycohemoglobin A1C 6.7 % (4.5-6.2)
[2024-05-23 12:11] LABS: Basophils Percent Auto 0.5 % (0.2-2.0); Eosinophils Absolute Auto 0.3 10^3/uL (0.0-0.7); Eosinophils Percent Auto 3.5 % (0.9-7.0); Hematocrit 41.9 % (36.0-48.0); Hemoglobin 14.6 g/dL (12.0-16.0); Immature Granulocytes Abs Auto 0.01 10^3/uL (0.00-0.03); Immature Granulocytes Pct Auto 0.1 % (0.0-0.5); Lymphocytes Absolute Auto 2.3 10^3/uL (1.2-3.8); Lymphocytes Percent Auto 31.3 % (20.5-60.0); Mean Corpuscular HGB Conc 34.8 g/dL (29.9-35.2); Mean Corpuscular Hemoglobin 28.3 pg (26.7-34.0); Mean Corpuscular Volume 81.4 fL (81.0-99.0); Mean Platelet Volume 8.9 fL (9.5-13.5); Monocytes Absolute Auto 0.5 10^3/uL (0.3-0.8); Monocytes Percent Auto 6.6 % (1.7-12.0); Neutrophils Absolute Auto 4.3 10^3/uL (1.4-6.5); Platelet Count 308 10^3/uL (150-450); Red Blood Count 5.15 10^6/uL (4.20-5.40); Red Cell Distribution Width 12.4 % (11.0-15.0); White Blood Count 7.4 10^3/uL (4.0-11.0)
[2024-05-23 12:16] LABS: Alanine Aminotransferase 65 U/L (14-59); Anion Gap 9.5; Aspartate Amino Transferase 34 U/L (15-37); BUN Creatinine Ratio 18.3; Bilirubin Direct 0.2 mg/dL (0.0-0.2); Bilirubin Total 0.9 mg/dL (0.2-1.0); Calcium 9.2 mg/dL (8.5-10.1); Carbon Dioxide 31.7 mmol/L (21.0-32.0); Chloride 101 mmol/L (98-107); Estimated GFR (African America >60 (>=60 mL/min/1.73m^2); Estimated GFR (Non-African Ame >60 (>=60 mL/min/1.73m^2); Glucose 95 mg/dL (74-106); Potassium 4.2 mmol/L (3.5-5.1); Sodium 138 mmol/L (136-145)
[2024-05-23 12:17] LABS: Albumin Globulin Ratio 1.2; Albumin Level 3.9 g/dL (3.4-5.0); Alkaline Phosphatase 51 U/L (46-116); Chol HDL Ratio 6.7; Cholesterol 300 mg/dL (<=200); Globulin 3.3 g/dL; HDL Cholesterol 45 mg/dL (40-60); Thyroid Stimulating Hormone 2.027 uIU/mL (0.358-3.740); Total Protein 7.2 g/dL (6.4-8.2); Triglycerides 195 mg/dL (<=150)
== END 2024-05-23 11:30 | disposition home or self-care (01) ==
LOC: LAB 11:31
PROVIDERS: PCP Family Medicine; Visit Provider Family Medicine
DX: Z00.00 Encounter for general adult medical examination without abnormal findings (principal)
CPT/HCPCS: 36415; 80048; 80061; 80076; 83036; 84443; 85025

== ENCOUNTER 2024-07-08 10:17 | Outpatient (RCR) | payer OTHER, SELFPAY | END 2024-08-05 09:45 | disposition home or self-care (01) | LOC: LAB 10:17 | PROVIDERS: PCP Family Medicine; Visit Provider Obstetrics & Gynecology | DX: Z51.81 Encounter for therapeutic drug level monitoring (principal); N92.6 Irregular menstruation, unspecified | CPT/HCPCS: 36415; 84702 ==

== ENCOUNTER 2024-11-27 11:03 | Outpatient (OUT) | payer OTHER, SELFPAY ==
--- OUTSIDE RECORDS SUMMARY | 2024-11-27 11:06 | XMS_ITS | Clinical Summary ---
Author Organization [facility] Address [address] [place] [address] Care Team Providers Care Food And Beverage Associate Name Role Phone Lauro York MD Primary Care Provider [phone] Allergies No known active allergies Medications MedicationSigDispense QuantityRefillsLast FilledStart DateEnd DateStatus OneTouch Verio test strip Indications:Type 2 diabetes mellitus with hyperglycemia (HCC)USE TO 1 STRIP 3 TIMES A DAY 100 strip 1113Active insulin glargine (Lantus SoloStar) 100 UNIT/ML pen Indications:Type 2 diabetes mellitus with hyperglycemia (HCC)INJECT 40 UNITS UNDER THE SKIN IN THE MORNING. 45 mL 5Active NIFEdipine XL (Procardia XL) 60 MG 24 hr tablet Indications:Essential hypertension, benignTAKE 1 TABLET (60 MG) BY MOUTH DAILY DO NOT CRUSH, CHEW, OR SPLIT. 90 tablet 5Active nabumetone (Relafen) 500 MG tablet Indications:Pain in left knee,Pain in joint, lower legTAKE 1 TABLET BY MOUTH TWICE A DAY 60 tablet 5Active Semaglutide, 2 MG/DOSE, (Ozempic, 2 MG/DOSE,) 8 MG/3ML solution pen-injector Indications:Type 2 diabetes mellitus with hyperglycemia, with long-term current use of insulin (HCC)INJECT 2 MG UNDER THE SKIN WEEKLY 6 mL 5Active metFORMIN (Glucophage) 500 MG tablet Indications:Type 2 diabetes mellitus with hyperglycemia (HCC)TAKE 2 TABLET BY MOUTH TWICE DAILY 360 tablet 5Active glipiZIDE (Glucotrol) 10 MG tablet Indications:Type 2 diabetes mellitus with hyperglycemia (HCC)TAKE 2 TABLET BY MOUTH TWICE DAILY 360 tablet 308/13/2025Active Active Problems ProblemNoted DateDiagnosed DateEssential hypertension, oaugnb5903/27/2023 Assessment & Plan (04/21/2024 3:22 PM EDT): BP controlled and monitor PRN. Discussed DASH diet. Assessment & Plan (01/22/2024 3:30 PM EST): BP improved and monitor PRN. Discussed DASH diet. Assessment & Plan (10/23/2023 3:40 PM EDT): BP improved and monitor BP PRN. Discussed DASH diet. Assessment & Plan (07/05/2023 4:46 PM EDT): BP elevated and increase procardia. Monitor BP PRN. Assessment & Plan (03/27/2023 4:26 PM EST): BP elevated today but previously controlled and monitor PRN. Bilateral leg edema03/27/2023 Assessment & Plan (07/05/2023 4:46 PM EDT): No edema and monitor. Chronic pain of left knee03/27/20230909Pkycwxtwtovk93/20/2024Gastroesophageal reflux pbxjdjn8303/27/2023 Assessment & Plan (07/05/2023 4:47 PM EDT): No symptoms and monitor. Phlebitis and thrombophlebitis of superficial vessels of lower extremities, akhbussys17/20/2024Type 2 diabetes mellitus with hyperglycemia, with long-term current use of xkkgqvy7603/27/2023 Assessment & Plan (04/21/2024 3:22 PM EDT): Reports BS improved and due for A1C. Continue ozempic. Stick to ADA diet and limit carbs. Assessment & Plan (01/22/2024 3:30 PM EST): Reports BS improved and due for A1C. Increase ozempic. Stick to ADA diet and limit carbs. Assessment & Plan (10/23/2023 3:41 PM EDT): Reports BS improved and due for A1C. Increase ozempic. Stick to ADA diet and limit carbs. Assessment & Plan (07/05/2023 4:46 PM EDT): BS elevated and need to take insulin daily. Continue januvia but once almost out will change to ozempic. Stick to ADA diet and limit carbs. Assessment & Plan (03/27/2023 4:25 PM EST): Reports BS elevated and due for A1C. Add ozempic. Stick to ADA diet and limit carbs. Class 3 severe obesity due to excess calories with serious comorbidity and body mass index (BMI) of45.0 to 49.9 in adult03/27/2023 Assessment & Plan (04/21/2024 3:21 PM EDT): Weight down 12 pounds. Assessment & Plan (01/22/2024 3:30 PM EST): Weight down 2 pounds since last visit. Increase ozempic. Annual physical exam03/27/2023 Assessment & Plan (04/21/2024 3:21 PM EDT): Due for labs. Discussed proper diet and regular aerobic exercise. Need aerobic exercise 5-6 days a week for 30 minutes at a time. Smaller portions and limit total calories. Colonoscopy after age 45. Tetanus every 10 years. Advised not to smoke. Assessment & Plan (03/27/2023 4:25 PM EST): Due for labs. Discussed proper diet and regular aerobic exercise. Need aerobic exercise 5-6 days a week for 30 minutes at a time. Smaller portions and limit total calories. Colonoscopy after age 45. Tetanus every 10 years. Advised not to smoke. Discussed daily Aspirin therapy. Resolved Problems ProblemNoted DateDiagnosed DateResolved DateAcute bronchitis due to other specified xqyrpgugk42/ Assessment & Plan (01/22/2024 3:31 PM EST): Take antibiotics for 7 days. Use sudafed or other decongestants as needed. Use robitussin or robittussin-DM for cough. Use afrin for congestion but no longer than 3 days. Use mucinex to bring up phlegm. Use motrin or tylenol for fever, aches or pains. Increase fluid intake and rest. Should improveover next 5-7 days and if no better or worse call office. Encounters DateTypeDepartmentCare QiwhFzgtdpswuvd93/13/2025Refill [facility] [address] [facility] [place] [address] Lauro York MD Type 2 diabetes mellitus with hyperglycemia (HCC)from Last 3 Months Family History Medical HistoryRelationNameCommentsDiabetesFatherHeart diseaseFatherHypertension FatherArthritisMaternal GrandmotherDiabetesMaternal GrandmotherKidney disease Maternal GrandmotherDiabetesMotherAlcohol abusePaternal GrandfatherMigraines SisterRelationNameStatusCommentsFatherAliveMaternal GrandfatherDeceasedMaternal GrandmotherAliveMotherAlivePaternal GrandfatherPaternal GrandmotherDeceased SisterAlive Social History Tobacco UseTypesPacks/DayYears UsedDateSmoking Tobacco: NeverSmokeless Tobacco: Never Tobacco Cessation:Counseling Given: Not Answered B1300 Health LiteracyAnswerDate RecordedHow often do you need to have someone help you when you read instructions, pamphlets, or other written material from your doctor or pharmacy?Never01/22/2024Social Connection and Isolation Panel AnswerDate RecordedIn a typical week, how many times do you talk on the phone with family, friends, or neighbors?Once a week01/22/2024How often do you get together with friends or relatives?More than three times a week01/22/2024How often do you attend baptist or judaism services?More than 4 times per year 01/22/2024o you belong to any clubs or organizations such as baptist groups, unions, fraternal or athletic groups, or school groups?No01/22/2024How often do you attend meetings of the clubs or organizations you belong to?Patient declined 01/22/2024re you , , , , never , or living with a partner?Gmkluox2301/22/2024UDIT-CAnswerDate RecordedQ1: How often do you have a drink containing alcohol?Never01/22/2024Q2: How many drinks containing alcohol do you have on a typical day when you are drinking?Patient does not drink01/22/2024Q3: How often do you have six or more drinks on one occasion?Never01/22/2024Overall Financial Resource Strain (CARDIA)AnswerDate RecordedHow hard is it for you to pay for the very basics like food, housing, medical care, and heating?Not hard at all01/22/2024[facility] [place] [facility] - Occupational Stress QuestionnaireAnswerDate RecordedDo you feel stress - tense, restless, nervous, or anxious, or unable to sleep at night because yourmind is troubled all the time - these days?To some cyocqy8801/22/2024 Exercise Vital SignAnswerDate RecordedOn average, how many days per week do you engage in moderate to strenuous exercise (like a brisk walk)?2 days01/22/2024On average, how many minutes do you engage in exercise at this level?0 min 01/22/2024Hunger Vital SignAnswerDate RecordedWithin the past 12 months, you worried that your food would run out before you got the money to buymore.Never true01/22/2024Within the past 12 months, the food you bought just didn't last and you didn't have money to get more.Never true01/22/2024RAPARE - TransportationAnswerDate RecordedIn the past 12 months, has lack of transportation kept you from medical appointments or from getting medications?No 01/22/2024In the past 12 months, has lack of transportation kept you from meetings, work, or from getting things needed for daily living?No01/22/2024 Housing Stability Vital SignAnswerDate RecordedIn the last 12 months, was there a time when you were not able to pay the mortgage or rent on time?No01/22/2024In the past 12 months, how many times have you moved where you were living?0 12/17/2024At any time in the past 12 months, were you homeless or living in a long term (including now)?No4CommentsUnknownSex and Gender InformationValueDate RecordedSex Assigned at BirthNot on fileLegal SexFemale 04/19/2022 11:47 PM EDTGender IdentityNot on fileSexual OrientationNot on file Last Filed Vital Signs Vital SignReadingTime TakenCommentsBlood Uoftjymm266/8603 3:02 PM EDT Seryu406404/21/2024 3:02 PM HEEIuocrkkazle73.2 ??C (97.1 ??F)04/21/2024 3:02 PM EDTRespiratory Xgid545004/21/2024 3:02 PM EDTOxygen Jdemglgben41%04/21/2024 3:02 PM EDTInhaled Oxygen Concentration--Fekyru100 kg (309 lb)04/21/2024 3:02 PM EDT Cgbeae364.2 cm (5' 7 )04/21/2024 3:02 PM EDTBody Mass Index48.403 3:02 PM EDT Plan of Treatment Health MaintenanceDue DateLast DoneCommentsPap Smear05/07/2003Cervical Cancer Mudgpvufi75/01/2013HPV/Csgjri6205/06/20123008Wjaybfwhb22/31/202408/Influenza Vaccine (#1)509/, 11/17/2021, 11/19/2020, Additional history exists Insurance Care Teams Team MemberRelationshipSpecialtyStart DateEnd Date Lauro York MD PCP - GeneralFamily Medicine03/05/23
--- OUTSIDE RECORDS SUMMARY | 2024-11-27 11:06 | XMS_ITS | Clinical Summary ---
Author Organization [employer] tem Address [id number] [address] [place] [address] Care Team Providers Care Dinner Cook Name Role Phone Lauro York MD Primary Care Provider [phone] Allergies No known active allergies Medications MedicationSigDispense QuantityRefillsLast FilledStart DateEnd DateStatus prenat.vits,jose,mfm-bbeg-cnlmq tablet Take 1 tablet by mouth.Active lancets (ONETOUCH DELICA LANCETS) 33 gauge misc Indications:Type 2 diabetes mellitus complicating in second trimester, zuyeexluzy74 gauge delica lancets ----Testing 6 times per day 200 each 03/12/2017Active omega 6-rzo-qfn-fish oil 300-1,000 mg capsule Take by mouth.Active acetone, urine, test (KETONE URINE TEST) strip Test if bs remains above 200 100 strip 6003/25/2021ctive lancets 33 gauge misc Use a new needle each injection 100 each 6003/25/2021ctive blood sugar diagnostic strip Indications:Type 2 diabetes mellitus affecting in second trimester, antepartumOne touch verio strip for one touch verio reflects meter testing 4 times per day 120 strip 8003/25/2021ctive polyethylene glycol (GLYCOLAX) 17 gram packet Take 17 g by mouth in the morning. 10 packet 6005/05/2021ctive insulin detemir U-100 (LEVEMIR) 100 unit/mL (3 mL) insulin pen Indications:Type 2 diabetes mellitus during , third trimester,Diabetes mellitus due to underlying condition with ketoacidosis without coma, with long- term current use of insulin ([facility])Prime with 2 units and inject 32 units in am and 40 units sq into abd each evening 15 mL 602Active aspirin 81 mg Indications:Diabetes mellitus due to underlying condition with ketoacidosis without coma, with long-term current use of insulin ([facility]),Essential hypertension,Type 2 diabetes mellitus during , third trimesterTAKE 1 TABLET BY MOUTH EVERY DAY 90 tablet ctive pen needle, diabetic (BD ULTRA-FINE SHORT PEN NEEDLE) 31 gauge x 5/16 needle Use 5 times daily for insulin 100 each 502Active insulin NPH isoph U-100 human (NovoLIN N Flexpen) 100 unit/mL (3 mL) insulin pen Inject 42 units into abd each evening at 6pm 15 mL 3072Active insulin aspart U-100 (NovoLOG Flexpen U-100 Insulin) 100 unit/mL (3 mL) insulin pen Indications:Type 2 diabetes mellitus during , third trimesterINJECT 18U SUBCUTANEOUSLY BEFORE BREAKFAST,20U BEFORE LUNCH,40U BEFORE DINNER*15 MINS PRIOR TO MEAL 15 mL 502Active Active Problems ProblemNoted DateDiagnosed DateAdvanced maternal age in exxsbjizhhll41/16/2022 Obesity affecting /27/2017 Overview (01/01/2017): Pre- BMI 41.3 Type 2 diabetes mellitus during xfoznxjgs21/20/2017 Overview (06/20/2021): Metformin prior to Chronic hypertension affecting vizwnbobp77/07/2017 Family History Medical HistoryRelationNameCommentsAlcohol abuseFatherDiabetesFatherHeart diseaseFatherHypertensionFatherArthritisMaternal GrandmotherDiabetesMaternal GrandmotherKidney diseaseMaternal GrandmotherBreast cancerMotherDiabetesMother Heart diseaseMotherAlcohol abusePaternal GrandfatherMigrainesSisterRelationName StatusCommentsFatherAliveMaternal GrandfatherDeceasedMaternal GrandmotherAlive MotherAlivePaternal GrandfatherAlivePaternal GrandmotherDeceasedSisterAlive Social History Tobacco UseTypesPacks/DayYears UsedDateSmoking Tobacco: NeverSmokeless Tobacco: NeverAlcohol UseStandard Drinks/WeekCommentsNo0 (1 standard drink = 0.6 oz pure alcohol)ChildcareAnswerDate RymhiyxzXghjbxhbeZwzjbtf17/13/2019EmploymentAnswer Date IcfnwaraIqcamgqihoOlbouhg55/13/2019Purpose - LifeAnswerDate RecordedPurpose and direction in axpfWmcevem33/11/2021CommentsNoSex and Gender InformationValueDate RecordedSex Assigned at BirthNot on fileLegal SexFemale 09/01/2016 2:30 PM EDTGender IdentityNot on fileSexual OrientationNot on file Last Filed Vital Signs Vital SignReadingTime TakenCommentsBlood Ghogeble698/7205 3:00 PM EDT Zkzuy787206/20/2021 3:00 PM EDTTemperature--Respiratory Ihfd404203/25/2016 9:39 AM ESTOxygen Saturation--Inhaled Oxygen Concentration--Osjgsz980.4 kg (305 lb 1.9 oz)06/20/2021 3:00 PM TBCCxxnsc420.2 cm (5' 7 )06/20/2021 3:00 PM EDTBody Mass Index47.7906/20/2021 3:00 PM EDT Plan of Treatment Health MaintenanceDue DateLast DoneCommentsDiabetic Ophthalmology Exam1982 Statin Use: Wadqzaml15/01/1983Depression Tvmgtejze44/01/1995Tobacco Screening 1994Adult BMI Jrmvqskrs05/01/2001Diabetic Foot Exam2000DTaP,Tdap and Td Vaccines (1 - Tdap)2001Pap Smear05/07/2003COVID-19 Vaccine (4 - 2024- season)511/, 04/30/2020, 03/31/2020Influenza Okihvwm4410/06/2024 11/19/2020, 12/01/2019, 12/04/2018, Additional history exists Medical Devices Not on file Insurance Care Teams Team MemberRelationshipSpecialtyStart DateEnd Date Lauro York MD PCP - GeneralFamily Medicine03/25/21
--- OUTSIDE RECORDS SUMMARY | 2024-11-27 11:09 | XMS_ITS | CCD ---
Author Organization [facility]ini[facility] Care Team Providers Care Peer Tutor Name Role Phone DAYSI DIETZ Unavailable Unavailable MIRELA, DAYSI Unavailable Unavailable Latisha Esqueda Unavailable Marsha Mendez Unavailable MIRELA ., DR TAVAREZ Admitting Unavailable MIRELA ., DR TAVAREZ Attending Unavailable REQUEST, NONE LISTED Primary Care Unavaila ble MIRELA ., DR TAVAREZ Consulting Unavailable MIRELA ., DR TAVAREZ Admitting Unavailable MIRELA ., DR TAVAREZ Attending Unavailable REQUEST, NONE LISTED Primary Care Unavaila ble MIRELA ., DR TAVAREZ Consulting Unavailable ZIEBER, DR LONG Collins Consulting Unavailable WEST, DR RUBI Comer Admitting Unavailable WEST, DR RUBI Comer Attending Unavailable NADERER, DR LAUOR Trejo Primary Care Unavailable WEST, DR RUBI [...] Trejo Consulting Unavailable WEST, DR RUBI Comer Admdavid Unavailable WEST, DR RUBI Comer Attending Unavailable [...] KARASIK ., DR HERNANDEZ Consulting Unavailabl e MIRELA ., DR TAVAREZ Consulting Unavailable ZIEBER, DR LONG Collins Consulting Unavailable MIRELA ., DR TAVAREZ Admitting Unavailable MIRELA ., DR TAVAREZ Attending Unavailable REQUEST, DR NONE LISTED Primary Care Unavaila ble MIRELA ., DR TAVAREZ Consulting Unavailable REQUEST, DR NONE LISTED Primary Care Unavaila ble MIRELA ., DR TAVAREZ Consulting Unavailable KARASIK ., DR HERNANDEZ Admitting Unavailabl e KARASIK ., DR HERNANDEZ Attending Unavailabl e ZIEBER, DR LONG Collins Consulting Unavailable REQUEST, DR NONE LISTED Primary Care Unavaila ble KARASIK ., DR HERNANDEZ Admitting Unavailabl e KARASIK ., DR HERNANDEZ Attending Unavailabl e KARASIK ., DR HERNANDEZ Consulting Unavailabl e MIRELA ., DR TAVAREZ Admitting Unavailable MIRELA ., DR TAVAREZ Attending Unavailable REQUEST, DR NONE LISTED Primary Care Unavaila ble WEST, DR RUBI Comer Consulting Unavailable MIRELA ., DR TAVAREZ Consulting Unavailable WEST, DR RUBI Comer Admitting Unavailable WEST, DR RUBI Comer Attending Unavailable NADERER, DR LAURO Trejo Primary Care Unavailable WEST, DR RUBI Comer Consulting Unavailable ZIEBER, DR LONG Collins Consulting Unavailable REQUEST, DR NONE LISTED Primary Care Unavaila ble LAMAR, SANCHEZ Admitting Unavailable LAMAR, SANCHEZ Attending Unavailable MIRELA ., DR TAVAREZ Admitting Unavailable MIRELA ., DR TAVAREZ Attending Unavailable REQUEST, NONE LISTED Primary Care Unavaila ble MIRELA ., DR TAVAREZ Consulting Unavailable ZIEBER, DR LONG Collins Consulting Unavailable MIRELA ., DR TAVAREZ Admitting Unavailable MIRELA ., DR TAVAREZ Attending Unavailable MIRELA ., DR TAVAREZ Primary Care Unavailable MIRELA ., DR TAVAREZ Consulting Unavailable MIRELA ., DR TAVAREZ Admitting Unavailable MIRELA ., DR TAVAREZ Attending Unavailable REQUEST, DR NONE LISTED Primary Care Unavaila ble WEST, DR RUBI Comer Consulting Unavailable MIRELA ., DR TAVAREZ Consulting Unavailable WEST, DR [...] e WEST, DR RUBI Comer Consulting Unavailable MIRELA ., DR TAVAREZ Admitting Unavailable MIRELA ., DR TAVAREZ Attending Unavailable NADERER, DR LAURO Trejo Primary Care Unavailable MIRELA ., DR TAVAREZ Consulting Unavailable AGUBOSIM, KAR Consulting Unavailable MIRELA ., DR TAVAREZ Procedure Practitioner Unavail able MIRELA ., DR TAVAREZ Admitting Unavailable MIRELA ., DR TAVAREZ Attending Unavailable REQUEST, DR CINDI LISTED Primary Care Unavaila ble WEST, DR RUBI Comer Consulting Unavailable MIRELA ., DR TAVAREZ Consulting Unavailable WEST, DR RUBI Comer Admitting Unavailable WEST, DR RUBI Comer Attending Unavailable NADRADHA, DR LAURO Trejo Primary Care Unavailable WEST, DR RUBI Comer Consulting Unavailable Lauro Gates MD Primary Care Provider LAURO GATES Attending Unavailable KODY, LAURO Attending Unavailable KODY, LAURO Attending Unavailable KODY, LAURO Attending Unavailable Lauro Gates MD Primary Care Provider Lauro Gates MD Attending Provider Medications Current Medications MedicationDrug Class(es)DatesSig (Normalized)Sig (Original)amoxicillin 875 mg oral tablet (1 source)Penicillin-class AntibacterialStart: 79-59-8046bovy 1 tablet by mouth every twelve hoursAmoxicillin 875 MG 1 tablet Orally every 12 hrs for 7 days Oct, ActiveCalcium (1 source)Phosphate Binder, CalciumCalcium ActiveFish Oils (3 sources)Fish Oil ActiveglipiZIDE 10 mg oral tablet (13 sources)SulfonylureaStart: 95-58-3534iywd 2 tablets by mouth twice daily Glipizide 10 mg tablet Active 20 MG PO Twice daily October 23, 2024 9:49am Complies with drug therapyStart: 40-15-2164rrkv 2 tablets by mouth twice daily glipiZIDE (Glucotrol) 10 MG tablet Indications: Type 2 diabetes mellitus with hyperglycemia (CMS/HCC) TAKE 2 TABLETS BY MOUTH TWICE A DAY 360 tablet 3 09/13/2023 ActiveStart: 03-20-2023 End: 43-47-9109aswe 1 tablet by mouth once dailyGlipizide 10 mg tablet Discontinued 10 MG PO Daily March 20, 2023 1:00am October 23, 2024 9 :53am3 ml insulin aspart, human 100 unt/ml pen injector (2 sources)Insulin AnalogNovoLOG FlexPen 100 UNIT/ML as directed Subcutaneous 20-30 units three times a day Active3 ml insulin glargine 100 unt/ml pen injector (15 sources)Insulin AnalogStart: 85-21-0193mufyyud glargine (Lantus SoloStar) 100 UNIT/ML pen Indications: Type 2 diabetes mellitus with hyperglycemia (CMS/HCC) INJECT 40 UNITS UNDER THE SKIN IN THE MORNING. 45 mL 5 04/14/2024 ActiveStart: 05-14-2023 End: 63-90-6468zumpteu glargine (Lantus SoloStar) 100 UNIT/ML pen Indications: Type 2 diabetes mellitus with hyperglycemia (CMS/HCC) Inject 50 Units under the skin Daily 5 each 5 05/14/2023 04/14/2024 DiscontinuedStart: 30-42-3266Pwsesza Glargine (Basaglar Kwikpen U-100 Insulin) 100 unit/mL (3 mL) insulin pen Active UNIT SUBCUTFebruary 2023 1:00am FreeTextSig: as directed Subcutaneous 40 units a day; Note: Source Status: Taking; Provider: Royal Campos ( ) Complies with drug therapyBasaglar KwikPen 100 UNIT/ML as directed Subcutaneous 40 units a day ActivelevoFLOXacin 750 mg oral tablet (2 sources)Quinolone AntimicrobialStart: 01-22-2024 End: 79-47-6970iaah 1 tablet by mouth once dailylevoFLOXacin (Levaquin) 750 MG tablet Indications: Acute bronchitis due to other specified organisms Take 1 tablet (750 mg) by mouth Daily for 7 days 7 tablet 01/22/2024 01/29/2024 Active metFORMIN hydrochloride 500 mg oral tablet (15 sources)BiguanideStart: 99-24-3305ucsw 2 tablets by mouth twice daily metFORMIN (Glucophage) 500 MG tablet Indications: Type 2 diabetes mellitus with hyperglycemia (CMS/HCC) TAKE 2 TABLETS BY MOUTH TWICE A DAY 360 tablet 3 09/13/2023 ActiveStart: 06-86-7590knuq 1 tablet by mouth twice daily at mealtime Metformin 500 mg tablet Active 500 MG PO Twice daily with meals March 20, 2023 1:00am Complieswith drug therapytake 1 tablet by mouth every twelve hours metFORMIN HCl 1000 MG 1 tablet with meals Orally Twice a day for 30 day(s) ActivemethylPREDNISolone 4 mg oral tablet (1 source)CorticosteroidStart: 43-32-1336rheivbMZUQQDAtvrvw 4 MG as directed Orally Once a day for 6 days Oct, ActiveMultivitamin preparation (1 source)Start: 29-81-4094axup 1 tablet by mouth once dailyMultivitamin Active 1 TAB PO Daily March 20, 2023 12:00amMultivitamins (3 sources)Multivitamins as directed Orally Activenabumetone 500 mg oral tablet (12 sources)Nonsteroidal Anti-inflammatory DrugStart: 10-63-2416vuxr 1 tablet by mouth twice dailynabumetone (Relafen) 500 MG tablet Indications: Pain in left knee , Pain in joint, lower leg TAKE 1TABLET BY MOUTH TWICE A DAY 60 tablet 5 04/30/2024 Adtwkz94 hr NIFEdipine 60 mg extended release oral tablet (15 sources)Dihydropyridine Calcium Channel BlockerStart: 95-78-1572fxpz 1 tablet by mouth once dailyNifedipine 60 mg tablet extended release Active 60 MG PO Daily 90 October 20, 2024 10:03am Complies with drug therapyStart: 45-59-9600ybmx 1 tablet by mouth once dailyNIFEdipine XL (Procardia XL) 60 MG 24 hr tablet Indications: Essential hypertension, benign (CMS/HCC) TAKE 1 TABLET (60 MG) BY MOUTH DAILY DO NOT CRUSH, CHEW, OR SPLIT. 90 tablet 1 04/17/2024 ActiveStart: 73-28-8034pefn 1 tablet by mouth once dailyNIFEdipine XL (Procardia XL) 60 MG 24 hr tablet Indications: Essential hypertension, benign (CMS/HCC) Take 1 tablet (60 mg) by mouth Daily Do not crush, chew, or split. 90 tablet 01/23/2024 ActiveStart: 66-55-0630SNYLoswayt XL (Procardia XL) 60 MG 24 hr tablet Indications: Essential hypertension, benign (CMS/HCC) TAKE 1 TABLET DAILY . DO NOT CRUSH, CHEW OR SPLIT 90 tablet 09/17/2023 ActiveStart: 03-20-2023 End: 33-23-6234vdxe 1 tablet by mouth once dailyNifedipine 30 mg tablet extended release Discontinued 1 TAB PO Daily March 20, 2023 1:00am October 20, 2024 10:06am FreeTextSi tablet on an empty stomach Orally Once a day; Note: Source Status: Taking; Provider: Royal Campos ( )take 1 tablet by mouth every twenty-four hoursNIFEdipine ER 30 MG 1 tablet on an empty stomach Orally Once a day Activeoseltamivir 75 mg oral capsule (1 source)Neuraminidase InhibitorStart: 93-92-6349htfm 1 capsule by mouth every twelve hoursTamiflu 75 MG 1 capsule Orally Twice a day for 5 day(s) Apr, ActiveSemaglutide (1 source)Start: 62-05-9212aiskci 2 mg by subcutaneous injection every week Semaglutide 2 mg/dose (8 mg/3 mL) pen injector Active 2 MG SUBCUT every week October 23, 2024 12:00am Complies with drug therapySemaglutide, 2 MG/DOSE, (Ozempic, 2 MG/DOSE,) 8 MG/3ML solution pen-injector (5 sources)Start: 31-68-3113qjlfnz 2 mg by subcutaneous injection every week Semaglutide, 2 MG/DOSE, (Ozempic, 2 MG/DOSE,) 8 MG/3ML solution pen-injector Indications: Type 2 diabetes mellitus with hyperglycemia, with long-term current use of insulin (CMS/HCC) Inject 2 mg under the skin 1 (one) time per week 3 mL 5 01/22/2024 ActiveSITagliptin 100 mg oral tablet (1 source)Dipeptidyl Peptidase 4 Inhibitortake 1 tablet by mouth every twenty- four hoursJanuvia 100 MG 1 tablet Orally Once a day for 30 day(s) Activevitamin B12 (1 source)Vitamin N55Swsseim B12 ActiveZinc (1 source)Zinc Active Completed/Discontinued Medications MedicationDrug Class(es)DatesSig (Normalized)Sig (Original)[id number] 200 actuat albuterol 0.09 mg/actuat metered dose inhaler (3 sources)beta2-Adrenergic AgonistStart: 03-20-2023 End: 13-61-2541xemb 1 puff(s) by inhalation four times daily as needed for wheezingAlbuterol Sulfate 90 mcg/actuation HFA aerosol inhaler Discontinued 2 PUFF INHALATION Four times daily as needed for shortness of breath or wheezing 8.March 20, 2023 1:00am October 23, 2024 9:48amStart: 70-21-1403gkff 2 puff(s) by inhalation every four hours as neededAlbuterol Sulfate HFA 108 (90 Base) MCG/ACT 2 puffs as needed Inhalation every 4 hrs Oct, Active azithromycin 250 mg oral tablet (4 sources)Macrolide AntimicrobialStart: 03-20-2023 End: 49-99-2595waoo 2 tablets by mouth once daily, then take 1 tablet by mouth once dailyAzithromycin (Zithromax Z-Trevor) 250 mg tablet Discontinued 250 MG PO Daily 6 5 March 20, 2023 1:00am October 23, 2024 9:48am take 2 tabs today and 1 daily for the next 4 daysStart: 85-98-6855Aibtawrjnglx 250 MG 2 tablet on the first day, then 1 tablet daily for 4 days Orally Once a day for5 day(s) Apr, Activebenzonatate 200 mg oral capsule (2 sources)Non-narcotic AntitussiveStart: 03-20-2023 End: 95-90-4714Qrltthzxnci 200 mg capsule Discontinued 200 MG PO 2-3 TIMES PER DAY as needed for cough 2023 1:00am October 23, 2024 9:48am docosahexaenoic acid 144 mg / eicosapentaenoic acid 216 mg / vitamin e 2 unt oral capsule (2 sources)Start: 03-20-2023 End: 94-14-2173hyjy 1 capsule by mouth once dailyOmega-3 Fatty Acids-Fish Oil (Fish Oil) 360-1,200 mg capsule Discontinued 1 CAP PO Daily March 20, 2023 1:00am October 23, 2024 9:50amMultivitamin tablet (1 source)Start: 03-20-2023 End: 90-08-0071cvaz 1 tablet by mouth once dailyMultivitamin tablet Discontinued 1 TAB PO Daily March 20, 2023 1:00am October 23, 2024 3:27pmpredniSONE 50 mg oral tablet (3 sources)Start: 10-09-2024 End: 20-22-5324xthg 1 tablet by mouth once dailyPrednisone 50 mg tablet Discontinued 50 MG PO Daily 6 October 09, 2024 12:00am October 3:28pmStart: 03-20-2023 End: 86-39-4169zaja 1 tablet by mouth twice dailyPrednisone 20 mg tablet Discontinued 20 MG PO Twice daily 10 5 March 20, 2023 1:00am 2024 4:49pm0.25 mg, 0.5 mg dose 1.5 ml semaglutide 1.34 mg/ml pen injector (3 sources)Start: 08-02-2023 End: 36-97-6387gbdzbicafbj (Ozempic, 0.25 or 0.5 MG/DOSE,) 2 MG/1.5ML solution pen-injector Indications: Type 2 diabetes mellitus with hyperglycemia, with long-term current use of insulin (CMS/HCC) 0.25 mg SC weekly x 4 weeks, then 0.5 mg weekly 1 each 12 08/02/2023 10/23/2023 Discontinuedsemaglutide (Ozempic, 1 MG/DOSE,) 4 MG/3ML solution pen-injector (6 sources)Start: 10-23-2023 End: 46-88-5124ojrogm 1 mg by subcutaneous injection every weeksemaglutide (Ozempic, 1 MG/DOSE,) 4 MG/3ML solution pen-injector Indications: Type 2 diabetes mellitus with hyperglycemia, with long-term current use of insulin (CMS/HCC) Inject 1 mg under the skin 1(one) time per week 1 each 5 10/23/2023 01/22/2024 DiscontinuedStart: 85-08-1423qpqwzr 1 mg by subcutaneous injection every weeksemaglutide (Ozempic, 1 MG/DOSE,) 4 MG/3ML solution pen-injector Indications: Type 2 diabetes mellitus with hyperglycemia, with long-term current use of insulin ([facility]) Inject 1 mg under the skin 1(one) time per week 1 each 10/23/2023 Active Problems Active Problems Problem ClassificationProblemDateDocumented DateEpisodic/ChronicChronic obstructive pulmonary disease and bronchiectasis (4 sources)Bronchitis; Translations: [Bronchitis, not specified as acute or chronic]Onset: 11-04-2020 Resolved: 31-65-9201DoayvzgnVvfqohhk mellitus with complications (20 sources)Type 2 diabetes mellitus with hyperglycemia; Translations: [Hyperglycemia due to type 2 diabetes mellitus]Onset: 05-44-4677ExdeauxKwhtguqo mellitus without complication (5 sources)Type 2 diabetes mellitus without complication; Translations: [Diabetes mellitus without mention of complication, type II or unspecified, not stated as uncontrolled]73-74-5680SkuwsnhBgqjyplk or abnormal glucose tolerance complicating ; childbirth; or the puerperium (5 sources)Unspecified pre-existing diabetes mellitus in childbirth; Translations: [Pre-existing type 2 diabetes mellitus, in , third trimester]Onset: 73-79-0254TnvlfejSqhzpamud of lipid metabolism (16 sources)Mixed hyperlipidemia; Translations: [Hyperlipidemia, mixed]Onset: 954916-45-2138LvpqlqnUvmjexrcjv disorders (12 sources)Gastro-esophageal reflux disease without esophagitis; Translations: [Gastroesophageal reflux disease]Onset: 971710-32-6163JfxozpvKhrpvhzxk hypertension (20 sources)Hypertensive disorder; Translations: [Hypertension, unspecified] Onset: 188517-65-9168RgrzhipSipteuydnxyl complicating ; childbirth and the puerperium (3 sources)Unspecified pre-existing hypertension complicating , third trimester; Translations: [Unspecified maternal hypertension, complicating childbirth]Onset: 70-04-2867LepaongFgcgcpfk disorders (2 sources)Secondary immune deficiency disorder; Translations: [Immunodeficiency due to conditions classified elsewhere ([facility])]60-17-7504CydffxvBruxs complications of ; puerperium affecting management of mother (1 source)Obesity complicating childbirth; Translations: [OBESITY COMPLICATING CHILDBIRTH]Onset: 30-35-3090PtbfkkdHvfkv non-traumatic joint disorders (11 sources)Pain in left knee; Translations: [Pain in joint, lower leg]Onset: 768593-84-9755MrkefqsmGfcmn nutritional; endocrine; and metabolic disorders (1 source)Morbid (severe) obesity due to excess calories; Translations: [MORBID SEVERE OBES D/T EXCESS DANIELA]Onset: 93-22-4359XwvrfxjNieub nutritional; endocrine; and metabolic disorders (5 sources)Morbid obesity; Translations: [Morbid (severe) obesity due to excess calories]Onset: 425424-46-7348LpzmnugSolbv nutritional; endocrine; and metabolic disorders (8 sources)Severe obesity; Translations: [Class 3 severe obesity due to excess calories with serious comorbidity and body mass index (BMI) of 45.0 to 49.9 in adult ([facility])]Onset: 065177-15-5114YpptnbjJifxz upper respiratory infections (1 source)Acute pharyngitis, unspecifiedEpisodicOtitis media and related conditions (3 sources)Otitis media, unspecified, left ear; Translations: [Otitis media, unspecified, right ear]Onset: 11-04-2020 Resolved: 55-71-6258NvlpajshSyoqudyhc; thrombophlebitis and thromboembolism (20 sources)Phlebitis and thrombophlebitis of superficial vessels of lower extremities, bilateral; Translations: [Phlebitis and thrombophlebitis of superficial vessels of right lower extremity]Onset: 88-92-5559ZgvsnlfkSrarfnhn codes; unclassified (11 sources)Bilateral lower limb edema; Translations: [Localized edema]Onset: 985829-40-7290XqlmtxuiYmbugdedfyhm (1 source)CONTACT W/AND (SUSP) EXPOS COVID-19; Translations: [CONTACT W/AND (SUSP) EXPOS COVID-19]Onset: 73-69-1286Vzgpmyee veins of lower extremity (4 sources)Varicose veins of bilateral lower extremities with pain; Translations: [VARICOSE VNS TAO LOW EXTREMW/PAIN]Onset: 72-76-8935Xgsdblzs Past or Other Problems Problem ClassificationProblemDateDocumented DateEpisodic/ChronicAcute bronchitis (7 sources)Acute infective bronchitis; Translations: [Acute bronchitis due to other specified organisms]Onset: 01-22-2024 Resolved: 078175-09-4034PuqivybrJtkkcoti or abnormal glucose tolerance complicating ; childbirth; or the puerperium (8 sources)Gestational diabetes mellitus in , insulin controlled; Translations: [Gestational diabetesmellitus in , unspecified control] Onset: 57-13-9021ImhuyhjkCsselautglpgl and screening for infectious disease (3 sources)Contact with and (suspected) exposure to other viral communicable diseases; Translations: [Encounter for screening for human papillomavirus (HPV)] Onset: 11-04-2020 Resolved: 76-78-4514QijbwtsaTrtkjnzzqkd; malpresentation (1 source)Maternal care for high head at term, not applicable or unspecified; Translations: [MATERNAL CARE HIGH HEAD TERM NA/UNS]Onset: 60-22-1095Lydxjgak Other aftercare (1 source)intermediate teacher (current) use of insulin; Translations: [RESERVATIONS AND TICKETING AGENT CURRENT USE OF INSULIN]Onset: 74-58-9395KbnuqhawAljxj aftercare (1 source)Other fdc (current) drug therapy; Translations: [OTH RESERVATIONS AND TICKETING AGENT CURRENT DRUG THERAPY]Onset: 15-39-1858CiofgdxgBbrsi complications of ; puerperium affecting management of mother (1 source)Diseases of the digestive system complicating childbirth; Translations: [DZ DIGESTIVE SYSTEM COMP CHILDBIRTH]Onset: 85-38-6538Wskclrle Other complications of ; puerperium affecting management of mother (1 source)Streptococcus B carrier state complicating childbirth; Translations: [STREP B EUCEDA STATE COMP CHILDBIRTH]Onset: 21-25-6041EdhyvcffRvwba complications of (1 source)Maternal care for excessive growth, third trimester, not applicable or unspecified; Translations: [MAT CARE EXCSS FTL GRTH 3RD TRI UNS] Onset: 95-31-3114NhnedjrfMixgw connective tissue disease (3 sources)Other specified soft tissue disorders; Translations: [OTHER SPEC SOFT TISSUE DISORDERS]Onset: 93-41-3632QaougffeKvbcr female genital disorders (1 source)Other specified noninflammatory disorders of vagina; Translations: [OTH SPEC NONINFLAMMATORY D/O VAGINA]Onset: 79-74-3791JmoschwvSzuur and delivery including normal (1 source)Single live ; Translations: [SINGLE LIVE ]Onset: 09-26-2021 EpisodicOther screening for suspected conditions (not mental disorders or infectious disease) (8 sources)Encounter for screening for Streptococcus B; Translations: [Encounter for screening for malignant neoplasm of cervix]Onset: 06-14-2021 EpisodicPolyhydramnios and other problems of amniotic cavity (1 source)Polyhydramnios, third trimester, not applicable or unspecified; Translations: [POLYHYDRAMNIOS THIRDTRI NA/UNS]Onset: 96-45-4785RabapvpqQulqodqz codes; unclassified (4 sources)Localized edema; Translations: [LOCALIZED EDEMA]Onset: 01-18-2022 EpisodicResidual codes; unclassified (1 source)37 weeks gestation of ; Translations: [37 WEEKS GESTATION OF ]Onset: 53-76-2484LcuarcorTomsnmzf codes; unclassified (1 source)36 weeks gestation of ; Translations: [36 WEEKS GESTATION OF ]Onset: 90-26-4096FvydouhcCtmejwpw codes; unclassified (1 source)35 weeks gestation of ; Translations: [35 WEEKS GESTATION OF ]Onset: 53-31-9408WbnlpxiwCpurmful codes; unclassified (1 source)34 weeks gestation of ; Translations: [34 WEEKS GESTATION OF ]Onset: 25-93-9990MwiekalxAxlyfsup codes; unclassified (1 source)33 weeks gestation of ; Translations: [33 WEEKS GESTATION OF ]Onset: 97-57-9275CdsrtkzxOwyetzts codes; unclassified (1 source)32 weeks gestation of ; Translations: [32 WEEKS GESTATION OF ]Onset: 37-62-0263ZrwslpisAcpygsgk codes; unclassified (1 source)31 weeks gestation of ; Translations: [31 WEEKS GESTATION OF ]Onset: 35-85-1400Dsbkxwfk Results Test NameValueInterpretationReference RangeFacilityTBH PREG QUANT HCGon 39-79-3348SLQ QUANTITATIVE<1mIU/mLNOMS HealthcareComment on above:5-50 0.2-1 WEEK 50-500 1-2 WEEKS 100-5,000 2-3 WEEKS 500-10,000 3-4 WEEKS 1,000-50,000 4-5 WEEKS 10,000-100,000 5-6 WEEKS 15,000-200,000 6-8 WEEKS 10,000-100,000 2-3 MONTHS CLINISYNCNOAK HealthcareMLR HEMOGLOBIN A1Con 89-18-9968Teyfuyx [Mass/Vol]146 mg/dLNOTexas County Memorial HospitalDsgyhafejjMuQ0n (Bld) [Mass fraction]6.7 %High4.5 - 6.2 %[facility] HealthcareComment on above:ADA RECOMMENDED LIMIT 4.0 - 6.0 ADA THERAPEUTIC TARGET < 7.0 ACTION SUGGESTED > 7.0 Interpretation and review of laboratory resultsAbnormalNOTexas County Memorial HospitalCLINISYNMUSC Health Lancaster Medical CenterTB MICROALBUMIN, RAND URon [id number] URINE RANDOM 2.1 mg/dLNINF - 30.0 mg/dLNOTexas County Memorial HospitalCLINISYNSTATE REFORM SCHO[facility] FOR BO[facility] HealthcareVC CONSULT FOLLOWUPon 63-80-5366MH CONSULT FOLLOWUPPatient: MICKIE BROWER. Exam Date: 05/01/2022 : 1980 Gender:F Ordering : DR RUBI JACKSON M.D. Admission #: [id number] Family : Order #: [id number] CLICK HERE TO VIEW EXAM RADIOLOGY REPORT [...] by: Long Pierre M.D. on 05/01/2022 at 15:15NProMedica Bay Park HospitalVC EXT VENOUS TAO LIMITEDon 28-21-6927AM EXT VENOUS TAO LIMITEDPatient: LEONARDA MICKIE Osiris. Exam Date: 05/01/2022 : 1980 Gender:F Ordering : DR RUBI JACKSON M.D. Admission #: [id number] Family : Order #: [id number] CLICK HERE TO VIEW EXAM RADIOLOGY REPORT [...] veins in left leg. Thrombus extends into cloth reeler mid lower leg 2.5 cm from PTV. [...] by: Long Pierre M.D. on 05/01/2022 at 15:13[facility] HospitalVC INJ FOAM SCLERO W US MLTIon 67-52-9177CI INJ FOAM SCLERO W US MLTI Patient: MICKIE BROWER. Exam Date: 04/26/2022 : 1980 Gender:F Ordering : DR RUBI JACKSON M.D. Admission #: [id number] Family : Order #: [id number] CLICK HERE TO VIEW EXAM RADIOLOGY REPORT [...] the GSV, the treated (more content not included)...[facility] AUTO DIFFon [id number] #0.1 103/ulNormal0.0-0.1The [facility]erry HospitalComment on above: Performed By: #### CBC ####[facility] U[address] [place], [place] [address]Dr.Yilan ChangBasophils/100 WBC (Bld)0.6 %Normal 0.2-2.0The [facility] HospitalComment on above:Performed By: #### CBC ####[facility] Cheoctge[address] [place], [place] [address]Dr.Yilan ChangEO # 0.2 103/ulNormal0.0-0.7The [facility] HospitalComment on above:Performed By: #### CBC ####[facility] Kmqfmloter[address] [place], [place] [address]Dr. Yilan ChangEosinophils/100 WBC (Bld)2.1 %Normal0.9-7.0[facility] Comment on above:Performed By: #### CBC ####[facility] [address] [place], [place] [address]Dr.Yilan ChangErythrocyte distribution width (RBC) [Ratio]15.7 %Critically high11.0-15.0The [facility] HospitalComment on above:Performed By: #### CBC ####[facility] [address] [place], [place] [address]Dr.Kaelalan ChangHematocrit (Bld) [Volume fraction]37.6 % Zwzdyg01.0-48.0The [facility] HospitalComment on above:Performed By: #### CBC ####[facility] [address] [place], [place] [address]Dr. Yilan ChangHemoglobin (Bld) [Mass/Vol]12.8 g/qFKeybux81.0-16.0The [facility]erry HospitalComment on above:Performed By: #### CBC ####[facility] Bgsbbcpjwv[address] [place], [place] [address]Dr.Yilan ChangIG #0.02 10e3/ulNormal0.00-0.03The [facility] HospitalComment on above:Performed By: #### CBC ####[facility] [address] [address]Dr. Forrest CarrilloIG %0.2 %Normal0.0-0.5The [facility] HospitalComment on above:Performed By: #### CBC ####[facility] [address] [address]Dr.Forrest CarrilloLYMPH #2.2 103/ulNormal1.2-3.8The [facility] Comment on above:Performed By: #### CBC ####[facility] Cmzuoegxwf[address] [place], [place] [address]Dr.Forrest CarrilloLymphocytes/100 WBC (Bld)26.8 %Qoughn72.5-60.0The [facility] HospitalComment on above:Performed By: #### CBC ####[facility] Iznrdfbjoq7[address] [place], [place] [address]Dr. Forrest CarrilloMANUAL DIFF REQNONormalThe [facility]erry HospitalComment on above: Performed By: #### CBC ####[facility] Xxbbhwvsui[address] [place], [place] [address]Dr.Forrest CarrilloMCH (RBC) [Entitic mass]24.8 pg Critically low26.7-34.0The [facility] HospitalComment on above:Performed By: #### CBC ####[facility] Vbgfqxofqi[address] [place], [place] [address]Dr. Forrest CarrilloMCHC (RBC) [Mass/Vol]34.0 g/oGIpjuzu74.9-35.2The [facility] Comment on above:Performed By: #### CBC ####[facility] Aqojmotpog[address] [place], [place] [address]Dr.Forrest CarrilloMCV (RBC) [Entitic vol]72.7 fL Critically low81.0-99.0The [facility] HospitalComment on above:Performed By: #### CBC ####[facility] Oqivoceezv[address] [place], [place] [address]Dr. Forrest CarrilloMONO #0.5 103/ulNormal0.3-0.8The [facility] HospitalComment on above: Performed By: #### CBC ####[facility] [address] [address]Dr.Forrest ChangMonocytes/100 WBC (Bld)6.2 %Normal 1.7-12.0The [facility] HospitalComment on above:Performed By: #### CBC ####[facility] Qvrnysycxr[address] [place], [place] [address]Dr. Forrest ChangNEUT #5.2 103/ulNormal1.4-6.5The Newcastle HospitalComment on above: Performed By: #### CBC ####[facility] Ktamwlpiou[address] [place], [place] [address]Dr.Kaelalan ChangNeutrophils/100 WBC (Bld)64.1 %Normal 43.0-75.0The [facility] HospitalComment on above:Performed By: #### CBC ####[facility] Wzsheydzty[address] [place], [place] [address]Dr. Forrest ChangPlatelet mean volume (Bld) [Entitic vol]8.2 fLCritically low9.5-13.5 The [facility] HospitalComment on above:Performed By: #### CBC ####[facility] Qubjjxtnom[address] [place], [place] [address]Dr.Forrest GwosfYHV570 103/hpQsqtsk954-025Hgr [facility] HospitalCommclaren oakland on above:Performed By: #### CBC ####[facility] Tjyvrfavof[address] [place], [place] [address]Dr. Forrest ChangRBC5.17 106/ulNormal4.20-5.40The [facility] HospitalComment on above: Performed By: #### CBC ####[facility] Bcscvueldo[address] [place], [place] [address]Dr.Kaelalan ChangWBC8.1 103/ulNormal4.0-11.0The [facility] HospitalComment on above:Performed By: #### CBC ####[facility] Jgbglwmqtc[address] [place], [place] [address]Dr.Forrest CarrilloGLYCOHEMOGLOBIN A1Con 27-04-6405JSO RECOMMENDATIONSEE [facility] InstituteCommclaren [facility] on above:Result Comment: ADA RECOMMENDED LIMIT 4.0 - 6.0 ADA THERAPEUTIC TARGET < 7.0 ACTION SUGGESTED > 7.0Performed By: #### POCGLUC #### [facility] [address] [place] [address] Dr. Forrest CarrilloGlucose [Mass/Vol]214 mg/dLNoSelect Medical Specialty Hospital - Columbus SouthCommclaren oakland on above:Performed By: #### POCGLUC #### [facility] [address] [place] [address] Dr. Forrest CarrilloHbA1c (Bld) [Mass fraction]9.1 %Critically high4.5-6.2The [facility] on above:Performed By: #### POCGLUC #### [facility] [address] [place] [address] Dr. Forrest CarrilloLIPID PROFILEon [id number]-HDL RATIO NORMSEE [facility] InstituteCommclaren oak[facility] on above:Result Comment: 3.3 - 4.4 LOW RISK 4.4 - 7.1 AVERAGE RISK 7.1 - 11.0 MODERATE RISK >11.0 HIGH RISKPerformed By: #### POCGLUC #### [facility] [address] [place] [address] Dr. Forrest Choesterol [Mass/Vol]250 mg/dLCritically high<=200The [facility] on above:Performed By: #### POCGLUC #### [facility] [address] [place] [address] Dr. Forrest CarrilloCholesterol in HDL [Mass/Vol]43 mg/fBDrazfb47-84Lkd [facility] HospitalCommclaren oakland on above:Performed By: #### POCGLUC #### [facility] [address] [place] [address] Dr. Forrest CarrilloCholesterol in LDL [Mass/Vol]165.6 mg/dLCleveland Clinic Euclid [facility] on above:Performed By: #### POCGLUC #### [facility] [address] [place] [address] Dr. Forrest Choesterruben.total/Cholesterol in HDL [Mass ratio]5.8 {ratio} NormalCleveland Clinic South Pointe Hospitalment on above:Performed By: #### POCGLUC #### [facility] [address] [place] [address] Dr. Forrest Galicia NORMAL> or = 60 mg/dl - LOW CARDIOVASCULAR RISK <40 mg/dl - HIGH CARDIOVASCULAR RISKGlenbeigh HospitalCommclaren oakland on above:Performed By: #### POCGLUC #### [facility] [address] [place] [address] Dr. Forrest CarrilloLDL CALC NORMALSEE BELOWGlenbeigh HospitalCommclaren oakland on above:Result Comment: <100 mg/dl OPTIMAL 100 - 129 mg/dl NEAR OR ABOVE OPTIMAL 130 - 159 mg/dl BORDERLINE HIGH 160 - 189 mg/dl HIGH >190 mg/dl VERY HIGH Performed By: #### POCGLUC #### [facility] [address] [place] [address] Dr. Forrest CarrilloTriglyceride [Mass/Vol]207 mg/dLCritically high<=150The [facility] on above:Performed By: #### POCGLUC #### [facility] [address] [place] [address] Dr. Forrest GibsonLDL CALC41.4 mg/dLNoAdams County Hospital on above: Performed By: #### POCGLUC #### [facility] [address] [place] [address] Dr. Forrest Bull PROFILEon 95-20-9443Gemfbwj [Mass/Vol]3.5 g/dLNormal3.4-5.0 The [facility] on above:Performed By: #### POCGLUC #### [facility] [address] [place] [address] Dr. Forrest CarrilloAlbumin/Globulin [Mass ratio]1.0 {ratio}NormalThe [facility] on above:Performed By: #### POCGLUC #### [facility] [address] [place] [address] Dr. Forrest CabralesP [Catalytic activity/Vol]56 U/GCclxyc72-765JwzAdams County Hospital on above:Performed By: #### POCGLUC #### [facility] [address] [address] [address] Forrest Fisher [Catalytic activity/Vol]22 U/GPzlsfk13-59Kdm [facility] HospitalComment on above:Performed By: #### POCGLUC #### [facility] [address] [address] [address] Forrest CarrilloAST [Catalytic activity/Vol]13 U/LCritically nma89-74Mul [facility] HospitalComment on above:Performed By: #### POCGLUC #### [facility] [address] [address] [address] Forrest IbrahimI, CONJUGATED0.1 mg/dLNormal0.0-0.2[facility] Comment on above:Performed By: #### POCGLUC #### [facility] [address] [address] [address] Forrest Ibrahimirubin [Mass/Vol]0.4 mg/dLNormal0.2-1.0[facility] Comment on above:Performed By: #### POCGLUC #### [facility] [address] [address] [address] Forrest CarrilloGlobulin (S) [Mass/Vol]3.4 g/dLNormalThe [facility] HospitalComment on above:Performed By: #### POCGLUC #### [facility] [address] [address] [address] Forrest CarrilloProtein [Mass/Vol]6.9 g/dLNormal6.4-8.2The [facility] Comment on above:Performed By: #### POCGLUC #### [facility] [address] [address] [address] Forrest CarrilloPROF CHEM 8 (BAS METB)on 50-37-6342Hkcsn gap [Moles/Vol]9.3 mmol/LNormalThe [facility]erry HospitalComment on above:Performed By: #### POCGLUC #### [facility] [address] [address] [address] Forrest CarrilloCalcium [Mass/Vol]8.4 mg/dLCritically low8.5-10.1[facility] HospitalComment on above:Performed By: #### POCGLUC #### [facility] [address] [address] [address] Forrest CarrilloChloride [Moles/Vol]101 mmol/RBoayep22-048Gen [facility] Comment on above:Performed By: #### POCGLUC #### [facility] [address] [address] [address] Forrest CarrilloCO2 [Moles/Vol]27.4 mmol/ZCaxomn03.0-32.0[facility] Comment on above:Performed By: #### POCGLUC #### [facility] [address] [address] [address] Forrest CarrilloCreatinine [Mass/Vol]0.69 mg/dLNormal0.55-1.02The [facility] HospitalComment on above:Performed By: #### POCGLUC #### [facility] [address] [address] [address] Forrest GoodwinGFR-AF PITCAIRN ISLANDER>60Normal>=60The [facility] HospitalComment on above:Performed By: #### POCGLUC #### [facility] [address] [address] [address] Forrest GoodwinGFR-NON AF PITCAIRN ISLANDER>60Normal>=60The [facility] HospitalComment on above:Performed By: #### POCGLUC #### [facility] [address] [address] [address] Forrest CarrilloGlucose [Mass/Vol]162 mg/dLCritically sixq41-415Unx [facility] HospitalComment on above:Performed By: #### POCGLUC #### [facility] [address] [address] [address] Forrest CarrilloPotassium [Moles/Vol]3.7 mmol/LNormal3.5-5.1The [facility] Comment on above:Performed By: #### POCGLUC #### [facility] [address] [address] [address] Forrest CarrilloSodium [Moles/Vol]134 mmol/LCritically eln464-271Psn [facility] HospitalComment on above:Performed By: #### POCGLUC #### [facility] [address] [address] [address] Forrest Knutson nitrogen [Mass/Vol]21.0 mg/dLCritically high7.0-18.0[facility] HospitalComment on above:Performed By: #### POCGLUC #### [facility] [address] [address] [address] Forrest Knutson nitrogen/Creatinine [Mass ratio]30.4 mg/mgNormalThe [facility] HospitalComment on above:Performed By: #### POCGLUC #### [facility] [address] [place] [address] Dr. Forrest Hall 86-88-0941JNM8.018 uIU/mLNormal0.358-3.740The [facility] HospitalComment on above:Performed By: #### POCGLUC #### [facility] [address] [place] [address] Dr. Forrest Stroud Strepon 04-15-2022S. pyogenes Org specific cx Ql (Throat) NegativeConnectify Other Quick StrepConnectify Other VC CONSULT FOLLOWUPon [id number] CONSULT FOLLOWUP Patient: MICKIE BROWER Exam Date: 04/12/2022 : 1980 Gender:F Ordering : DR RUBI JACKSON M.D. Admission #: [id number] Family : Order #: [id number] CLICK HERE TO VIEW EXAM RADIOLOGY REPORT [...] by: Long Pierre M.D. on 04/12/2022 at 14:27[facility] HospitalVC EXT VENOUS RT LIMITEDon [id number] EXT VENOUS RT LIMITEDPatient: MICKIE BROWER. Exam Date: 04/12/2022 : 1980 Gender:F Ordering : DR RUBI JACKSON M.D. Admission #: [id number] Family : Order #: [id number] CLICK HERE TO VIEW EXAM RADIOLOGY REPORT [...] by: Long Pierre M.D. on 04/12/2022 at 14:24[facility] HospitalVC INJ FOAM SCLERO W US MLTIon 73-22-8609AP INJ FOAM SCLERO W US MLTI Patient: MICKIE BROWER Exam Date: 04/06/2022 : 1980 Gender:F Ordering : DR RUBI JACKSON M.D. Admission #: [id number] Family : Order #: [id number] CLICK HERE TO VIEW EXAM RADIOLOGY REPORT [...] the treated superficial varices, (more content not included)...NormalMount St. Mary HospitalVC CONSULT FOLLOWUPon 26-33-0615HC CONSULT FOLLOWUPPatient: MICKIE BROWER. Exam Date: 03/23/2022 : 1980 Gender:F Ordering : DR RUBI JACKSON M.D. Admission #: [id number] Family : Order #: [id number] CLICK HERE TO VIEW EXAM RADIOLOGY REPORT [...] by: Rubi Jackson MD on 03/23/2022 at 15:03[facility] HospitalVC EXT VENOUS LT LIMITEDon [id number] EXT VENOUS LT LIMITEDPatient: MICKIE BROWER. Exam Date: 03/23/2022 : 1980 Gender:F Ordering : DR RUBI JACKSON M.D. Admission #: [id number] Family : Order #: [id number] CLICK HERE TO VIEW EXAM RADIOLOGY REPORT [...] by: Rubi Jackson MD on 03/23/2022 at 14:26[facility] HospitalVC ENDOVENOUS ABL 1ST V LTon 23-29-5861CI ENDOVENOUS ABL 1ST V LTPatient: LEONARDA May. Exam Date: 03/17/2022 : 1980 Gender:F Ordering : DR RUBI JACKSON M.D. Admission #: [id number] Family : Order #: [id number] CLICK HERE TO VIEW EXAM RADIOLOGY REPORT PROCEDURE: VEIN CENTER ENDOVENOUS ABLATION FIRST VEIN LEFT GREAT SAPHENOUS VEIN COMPARISON: None. INDICATIONS: Pain co-occurrent and due to varicose veins of bilateral legs I83.813 OPERATIVE REPORT: The risks and benefits of the procedure had been previously discussed, and were rediscussed at length. Informed written consent was obtained by and Darius hernandez. Time out procedure was performed. The left [...] the left great saphenous vein. Dictated by: Ruib Jackson MD on 03/17/2022 at 11:41 Approved by: Rubi Jackson MD on 03/17/2022 at 11:43[facility] HospitalVC CONSULT FOLLOWUPon [id number] CONSULT FOLLOWUPPatient: LEONARDA MAY L. Exam Date: 03/08/2022 : 1980 Gender:F Ordering : DR RUBI JACKSON M.D. Admission #: [id number] Family : Order #: [id number] CLICK HERE TO VIEW EXAM RADIOLOGY REPORT [...] by: Rubi Jackson MD on 03/08/2022 at 15:06[facility] HospitalVC EXT VENOUS RT LIMITEDon [id number] EXT VENOUS RT LIMITEDPatient: LEONARDA MAY L. Exam Date: 03/08/2022 : 1980 Gender:F Ordering : DR RUBI JACKSON M.D. Admission #: [id number] Family : Order #: [id number] CLICK HERE TO VIEW EXAM RADIOLOGY REPORT [...] to thrombus *Exam performed in accordance with [facility] practice guidelines- Peripheral venous ultrasound, May 01, 2009. 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 Exam Date: 03/03/2022 : 1980 Gender:F Ordering : DR RUBI JACKSON M.D. Admission #: [id number] Family : Order #: [id number] CLICK HERE TO VIEW EXAM RADIOLOGY REPORT PROCEDURE: VEIN CENTER ENDOVENOUS ABLATION FIRST VEIN RIGHT GREAT SAPHENOUS COMPARISON: None. INDICATIONS: Pain co-occurrent and due to varicose veins of bilateral legs I83.813 OPERATIVE REPORT: The risks and benefits of the procedure had been previously discussed, and were rediscussed at length. Informed written consent was obtained by [place] and Darius Hooper assisted. Time out procedure [...] by: Rubi Jackson MD on 03/03/2022 at 14:58[facility] HospitalVC COMP CONSULTATIONon [id number] COMP CONSULTATIONPatient: MICKIE BROWER. Exam Date: 01/18/2022 : 1980 Gender:F Ordering : DR LAURO GATES . Admission #: [id number] Family : Order #: [id number] CLICK HERE TO VIEW EXAM RADIOLOGY REPORT [...] arterial disease 5. CEAP: C3, EP, AP, MO PLAN: 1. Continued use of compression stockings [...] by: Long Pierre M.D. on 01/18/2022 at 10:57[facility] HospitalVC VENOUS REFLUX TAO LMTon [id number] VENOUS REFLUX TAO LMTPatient: MICKIE BROWER. Exam Date: 01/18/2022 : 1980 Gender:F Ordering : DR LAURO GATES . Admission #: [id number] Family : Order #: [id number] CLICK HERE TO VIEW EXAM RADIOLOGY REPORT [...] thrombus. Compressibility: Normal. Flow: Deep venous reflux. Otolaryngology Rep: Dist/medial lower leg 2.8 mm without reflux. [...] by: Long Pierre M.D. on 01/18/2022 at 10:25[facility] HospitalUS JETHRO DOP LEG BILon [id number] JETHRO DOP LEG BILEXAMINATION: US JETHRO DOP LEG TAO HISTORY: Pain [...] Electronically authenticated by: RUBI JACKSON Date: 2021-12-19 12:33[facility] HospitalGLYCOHEMOGLOBIN A1Con [id number] RECOMMENDATIONSEE BELOW NormalThe [facility] HospitalCommclaren oakland on above:Result Comment: ADA RECOMMENDED LIMIT 4.0 - 6.0 ADA THERAPEUTIC TARGET < 7.0 ACTION SUGGESTED > 7.0Performed By: #### HEAVEN ZUNIGAIND #### [facility] [address] [address] [address] Forrest CarrilloGlucose [Mass/Vol]151 mg/dLNormalThe [facility] HospitalComment on above:Performed By: #### NADIA CSIND #### [facility] [address] [address] [address] Forrest CarrilloHbA1c (Bld) [Mass fraction]6.9 %Critically high4.5-6.2The [facility]erry HospitalComment on above:Performed By: #### HEAVEN ZUNIGAIND #### [facility] [address] [address] [address] Forrest CarrilloCBC AUTO DIFFon [id number] #0.0 103/ulNormal0.0-0.1The [facility] HospitalComment on above:Performed By: #### CBC ####[facility] Hewqxosqvb[address] [place], [place] [address]DrSummer CarrilloBasophils/100 WBC (Bld)0.2 %Normal0.2-2.0The [facility] HospitalComment on above:Performed By: #### CBC ####[facility] [address] [place], [place] [address]DrSummer ChangEO #0.0 103/ulNormal0.0-0.7The [facility] HospitalComment on above:Performed By: #### CBC ####[facility] Xykeweuqja[address] [place], [place] [address]DrSummer ChangEosinophils/100 WBC (Bld)0.1 %Critically low0.9-7.0The [facility] HospitalComment on above:Performed By: #### CBC ####[facility] Alsfndzgnz[address] [place], [place] [address]Dr. Yilan ChangErythrocyte distribution width (RBC) [Ratio]14.9 %Jgbewz17.0-15.0The [facility] HospitalComment on above:Performed By: #### CBC ####[facility] Fnklovjooc[address] [place], [place] [address]Dr.Forrest ChangHematocrit (Bld) [Volume fraction]25.9 %Critically low36.0-48.0The [facility] HospitalComment on above:Performed By: #### CBC ####[facility] Ghttwaysds[address] [place], [place] [address]Dr.Forrest ChangHemoglobin (Bld) [Mass/Vol]8.4 g/dL Critically low12.0-16.0The [facility] HospitalComment on above:Result Comment: Post BabyPerformed By: #### CBC ####[facility] [address]sozvqvqsf[address] [place], [place] [address]Dr.Yilan ChangIG #0.04 10e3/ulCritically high0.00-0.03 The [facility] HospitalComment on above:Performed By: #### CBC ####[facility] Gtdoppsyll[address] [place], [place] [address]Dr.Yilan ChangIG % 0.3 %Normal0.0-0.5The [facility] HospitalComment on above:Performed By: #### CBC ####[facility] B[address]zzzpqxu[address] [place], [place] [address]Dr. Kaelalan ChangLYMPH #1.2 103/ulNormal1.2-3.8The [facility]erry HospitalComment on above: Performed By: #### CBC ####[facility] Iflasuagtk[address] [place], [place] [address]Dr.Yilan ChangLymphocytes/100 WBC (Bld)9.8 %Critically low20.5-60.0The [facility] HospitalComment on above:Performed By: #### CBC ####[facility] Qkxkgfegio[address] [place], [place] [address]Dr. Yilan ChangMANUAL DIFF REQNONormalThe [facility] HospitalComment on above: Performed By: #### CBC ####[facility] [address] [address]Dr.Forrest CarrilloH (RBC) [Entitic mass]25.8 pg Critically low26.7-34.0The [facility] HospitalComment on above:Performed By: #### CBC ####[facility] Belihbnrtg[address] [place], [place] [address]Dr. Forrest CarrilloHC (RBC) [Mass/Vol]32.4 g/wEKjmhmf84.9-35.2The [facility] Comment on above:Performed By: #### CBC ####[facility] Tclimaoudv[address] [place], [place] [address]Dr.Kaelajuliet CarrilloMCV (RBC) [Entitic vol]79.4 fL Critically low81.0-99.0The [facility] HospitalComment on above:Performed By: #### CBC ####[facility] Wiompxplst[address] [place], [place] [address]Dr. Forrest CarrilloMONO #0.9 103/ulCritically high0.3-0.8The [facility] HospitalComment on above:Performed By: #### CBC ####[facility] Siskapludu[address] [place], [place] [address]Dr.Forrest CarrilloMonocytes/100 WBC (Bld)6.8 %Normal 1.7-12.0The [facility] HospitalComment on above:Performed By: #### CBC ####[facility] Befmfxzrvw[address] [place], [place] [address]Dr. Forrest CarrilloNEUT #10.4 103/ulCritically high1.4-6.5The [facility] HospitalComment on above:Performed By: #### CBC ####[facility] Tusergtiji[address] [place], [place] [address]Dr.Forrest CarrilloNeutrophils/100 WBC (Bld)82.8 % Critically high43.0-75.0The [facility] HospitalComment on above:Performed By: #### CBC ####[facility] Ckjeojlpnx[address] [place], [place] [address]Dr. Kaelajuliet CarrilloPlatelet mean volume (Bld) [Entitic vol]8.9 fLCritically low9.5-13.5 The [facility] HospitalComment on above:Performed By: #### CBC ####[facility] [address] [address]DrSummer CarrilloPLT187 103/iyXcwrid342-384Zdn [facility] HospitalComment on above:Performed By: #### CBC ####[facility] [address] [address]DrKatlin CarrilloRBC3.26 106/ulCritically low4.20-5.40The [facility] HospitalComment on above:Performed By: #### CBC ####[facility] [address] [address]DrSummer CarrilloWBC12.5 103/ulCritically high4.0-11.0The [facility] HospitalComment on above:Performed By: #### CBC ####[facility] [address] [address]Dr.Yilan CarrilloNORTHSIDE [facility] GLUCOSEon 97-77-9992Ivnosot [Mass/Vol]102 mg/cGXpbpnl06-603MpsMount St. [facility] Comment on above:Performed By: #### POCGLUC #### [facility] [address] [place] [address] Dr. Forrest Shelley AUTO DIFFon [id number] #0.0 103/ulNormal0.0-0.1The [facility] HospitalComment on above:Performed By: #### POCGLUC #### [facility] [address] [place] [address] Dr. Forrest Batistasophils/100 WBC (Bld)0.2 %Normal0.2-2.0[facility] Comment on above:Performed By: #### POCGLUC #### [facility] [address] [place] [address] Dr. Forrest Lauren #0.1 103/ulNormal0.0-0.7The [facility] HospitalComment on above: Performed By: #### POCGLUC #### [facility] [address] [place] [address] Dr. Forrest Goodwinosinophils/100 WBC (Bld)0.5 %Critically low0.9-7.0The [facility] HospitalComment on above:Performed By: #### POCGLUC #### [facility] [address] [place] [address] Dr. Forrest Goodwinrythrocyte distribution width (RBC) [Ratio]14.7 %Ezlxbm41.0-15.0 The [facility] HospitalComment on above:Performed By: #### POCGLUC #### [facility] [address] [place] [address] Dr. Forrest CarrilloHematocrit (Bld) [Volume fraction]32.5 %Critically low36.0-48.0 The [facility] HospitalCommclaren oakland on above:Performed By: #### POCGLUC #### [facility] [address] [place] [address] Dr. Forrest CarrilloHemoglobin (Bld) [Mass/Vol]10.9 g/dLCritically low12.0-16.0The [facility] HospitalComment on above:Performed By: #### POCGLUC #### [facility] [address] [place] [address] Dr. Forrest Pena #0.03 10e3/ulNormal0.00-0.03The [facility] on above:Performed By: #### POCGLUC #### [facility] [address] [place] [address] Dr. Forrest CarrilloIG %0.3 %Normal0.0-0.5The [facility] HospitalCommclaren oakland on above: Performed By: #### POCGLUC #### [facility] [address] [place] [address] Dr. Forrest EverettMPH #1.6 103/ulNormal1.2-3.8The [facility] HospitalComment on above:Performed By: #### POCGLUC #### [facility] [address] [place] [address] Dr. Forrest Everettmphocytes/100 WBC (Bld)15.6 %Critically low20.5-60.0The [facility] HospitalComment on above:Performed By: #### POCGLUC #### [facility] [address] [address] [address] Forrest Reddy DIFF REQNONormalThe [facility] HospitalComment on above: Performed By: #### POCGLUC #### [facility] [address] [place] [address] Dr. Forrest Armstrong (RBC) [Entitic mass]25.8 pgCritically low26.7-34.0The [facility] HospitalComment on above:Performed By: #### POCGLUC #### [facility] [address] [place] [address] Dr. Forrest Armstrong (RBC) [Mass/Vol]33.5 g/fSWzlthz65.9-35.2The [facility] HospitalComment on above:Performed By: #### POCGLUC #### [facility] [address] [place] [address] Dr. Forrest Armstrong (RBC) [Entitic vol]77.0 fLCritically low81.0-99.0The [facility] HospitalComment on above:Performed By: #### POCGLUC #### [facility] [address] [place] [address] Dr. Forrest Suazo #0.7 103/ulNormal0.3-0.8The [facility] HospitalComment on above:Performed By: #### POCGLUC #### [facility] [address] [place] [address] Dr. Forrest Morseocytes/100 WBC (Bld)7.2 %Normal1.7-12.0[facility] Comment on above:Performed By: #### POCGLUC #### [facility] [address] [place] [address] Dr. Forrest Castrejon #7.7 103/ulCritically high1.4-6.5The [facility] Comment on above:Performed By: #### POCGLUC #### [facility] [address] [place] [address] Dr. Forrest Combsutrophils/100 WBC (Bld)76.2 %Critically high43.0-75.0The [facility]erry HospitalComment on above:Performed By: #### POCGLUC #### [facility] [address] [address] [address] Forrest CarrilloPlatelet mean volume (Bld) [Entitic vol]9.0 fLCritically low 9.5-13.5The [facility]erry HospitalComment on above:Performed By: #### POCGLUC #### [facility] [address] [address] [address] Forrest CarrilloPLT195 103/vpIafyxx697-088Nsn [facility] HospitalComment on above: Performed By: #### POCGLUC #### [facility] [address] [place] [address] Dr. Forrest CarrilloRBC4.22 106/ulNormal4.20-5.40The [facility] on above:Performed By: #### POCGLUC #### [facility] [address] [place] [address] Dr. Forrest CarrilloWBC10.1 103/ulNormal4.0-11.0The [facility] Campusment on above:Performed By: #### POCGLUC #### [facility] [address] [place] [address] Dr. Forrest CarrilloCoviashia-19 PCR ([facility])on [id number]-CoV-2 (COVID-19) RNA BRIANNA+probe Ql (Unsp spec)Not detectedNormalNOT DETECTEDThe [facility] Comment on above:Result Comment: When diagnostic testing is negative, the [...] for this test is supported by the [employer] of Health and Human Service's declaration that circumstances exist to justify the emergency use of in vitro diagnostics for the detection and/or diagnosis of the virus that causes COVID-19. This EUA will remain in effect for the duration of the COVID-19 declaration justifying emergency of IVDs, unless it is terminated or revoked by the FDA (after which the test may no longer be used).Performed By: #### CVDTBH ####[facility] [address] [address]Dr. Forrest CarrilloDRUG SCREEN RAPID (URINE)on 02-19-9677CREPwqrrxhiSwkebh NEGATIVEMount St. Mary HospitalComment on above:Performed By: #### POCGLUC #### [facility] [address] [address] [address] Forrest CarrilloBARNegativeNormalNEGATIVEMount St. Mary HospitalComment on above: Performed By: #### POCGLUC #### [facility] [address] [place] [address] Dr. Forrest CarrilloBUPNegativeNormalNEGATIVEMount St. Mary HospitalComment on above: Performed By: #### POCGLUC #### [facility] [address] [address] [address] Forrest CarrilloBZONegativeNormalNEGATIVEMount St. Mary HospitalComment on above: Performed By: #### POCGLUC #### [facility] [address] [address] [address] Forrest CarrilloCOCNegativeNormalNEGATIVEMount St. Mary HospitalComment on above: Performed By: #### POCGLUC #### [facility] [address] [place] [address] Dr. Forrest SorensonAdena Fayette Medical CenterComment on above: Result Comment: AMP (Amphetamine): 500ng/mL, BAR (Barbituates): 200 ng/mL, BZO (Benzodiazepines): 150 ng/mL, BUP (Buprenorphine): 10 ng/mL, MAUREEN (Cocaine): 150 ng/mL, mAMP (Methamphetamine): 500 ng/mL, MTD (Methadone): 200 ng/mL, OPI (Opiates): 100 ng/mL, OXY (Oxycodone): 100 ng/mL, PCP (Phencyclidine): 25 ng/mL, PPX (Propoxyphene): 300 ng/mL, THC (Cannabinoids): 50 ng/mL, TCA (Trycyclic Antidepressants): 300 ng/mLPerformed By: #### POCGLUC #### [facility] [address] [place] [address] Dr. Forrest CarrilloDRUG CUT HEADERDRUG CLASS TEST SYSTEM CUT-OFF CONCENTRATIONS ARE FOLLOWS:NormalCleveland Clinic South Pointe Hospitalment on above:Performed By: #### POCGLUC #### [facility] [address] [place] [address] Dr. Forrest CarrillomAMPNegativeNormalNEGATIVEMount St. Mary HospitalComment on above: Performed By: #### POCGLUC #### [facility] [address] [place] [address] Dr. Forrest CarrilloMTDNegativeNormalNEGATIVEMount St. Mary HospitalComment on above: Performed By: #### POCGLUC #### [facility] [address] [place] [address] Dr. Forrest CarrilloOPINegativeNormalNEGATIVEMount St. Mary HospitalComment on above: Performed By: #### POCGLUC #### [facility] [address] [place] [address] Dr. Forrest CarrilloOXYNegativeNormalNEGATIVEMount St. Mary HospitalComment on above: Performed By: #### POCGLUC #### [facility] [address] [place] [address] Dr. Forrest CarrilloPCPNegativeNormalNEGATIVEMount St. Mary HospitalCommclaren oakland on above: Performed By: #### POCGLUC #### [facility] [address] [place] [address] Dr. Forrest CarrilloPPXNegativeNormalNEGATIVEMount St. Mary HospitalComment on above: Performed By: #### POCGLUC #### [facility] [address] [place] [address] Dr. Forrest CarrilloTCANegativeNormalNEGATIVEMount St. Mary HospitalComment on above: Performed By: #### POCGLUC #### [facility] [address] [place] [address] Dr. Forrest CarrilloTHCNegativeNormalNEGATIVEMount St. Mary HospitalComment on above: Performed By: #### POCGLUC #### [facility] [address] [address] [address] Forrest CarrilloNORTHSIDE [facility] GLUCOSEon 85-23-3890Dztaffk [Mass/Vol]91 mg/dL Zkaqca21-266XjbMount St. Mary HospitalComment on above:Performed By: #### POCGLUC #### [facility] [address] [address] [address] Forrest CarrilloGlucose [Mass/Vol]107 mg/dLCritically vuen38-629CzwMount St. Mary HospitalComment on above:Performed By: #### POCGLUC #### [facility] [address] [address] [address] Forrest CarrilloGlucose [Mass/Vol]92 mg/hFKhwypn59-458YsxMount St. Mary Hospital Comment on above:Performed By: #### POCGLUC #### [facility] [address] [address] [address] Forrest CarrilloGlucose [Mass/Vol]92 mg/vELoofjj07-268VmsMount St. Mary Hospital Comment on above:Performed By: #### POCGLUC #### [facility] [address] [address] [address] Forrest CarrilloGlucose [Mass/Vol]104 mg/jCLcfvoq52-191EtgMount St. Mary Hospital Comment on above:Performed By: #### POCGLUC #### [facility] [address] [address] [address] Forrest CarrilloGlucose [Mass/Vol]100 mg/bBCkqpqe79-911QhhMount St. [facility] Hospital Comment on above:Performed By: #### HEAVEN ZUNIGAIND #### [facility] [address] [address] [address] Forrest CarrilloGlucose [Mass/Vol]100 mg/mKIzzknb70-067DzxMount St. [facility] Hospital Comment on above:Performed By: #### POCGLUC #### [facility] [address] [address] [address] Forrest CarrilloGlucose [Mass/Vol]90 mg/aIVpamat36-875LsvMount St. [facility] Hospital Comment on above:Performed By: #### NADIA UACSIND #### [facility] [address] [address] [address] Forrest CarrilloGlucose [Mass/Vol]86 mg/qYGoqlsx99-357MkxMount St. [facility] Hospital Comment on above:Performed By: #### POCGLUC ####[facility] [address] [address]Dr. Forrest CarrilloTYPE AND SCREENon 09-12-2021 TYPE AND SCREENNegativeNormalThe [facility] Ferry HospitalComment on above:Performed By: #### TNS ####[facility] [address] [address]Dr.Yilan Xavier (CLEAN/CATCH) MANAGER RESEARCH DEVELOPMENT/MICRO IF IND.on 62-07-3554Wvtfbddnz Ql (U)NegativeNormalNEGBlanchard Valley Health System Bluffton HospitalComment on above:Performed By: #### NADIA UACSIND #### [facility] [address] [address] [address] Forrest CarrilloClarity (U)CLEARNormalCLEARMount St. Mary HospitalComment on above: Performed By: #### NADIA UACSIND #### [facility] [address] [address] [address] Forrest CarrilloColor (U)YELLOWNormalYELLOWMount St. Mary HospitalComment on above: Performed By: #### NADIA UACSIND #### [facility] [address] [address] [address] Forrest CarrilloGlucose Ql (U)NegativeNormalNEGATIVEMount St. Mary HospitalComment on above:Performed By: #### UMICEFRAIN UACSIND #### [facility] [address] [address] [address] Forrest CarrilloHemoglobin Ql (U)NegativeNormalNEGBlanchard Valley Health System Bluffton Hospital Comment on above:Performed By: #### UMICEFRAIN UACSIND #### [facility] [address] [address] [address] Forrest CarrilloKetones Ql (U)>=80AbnormalNEGATIVEMount [address] Mary HospitalComment on above:Performed By: #### NADIA UACSIND #### [facility] [address] [address] [address] Forrest CarrilloLEUKOCYTESNegativeNormalNEGATIVEThe [facility]erry HospitalComment on above:Performed By: #### NADIA UACSIND #### [facility] [address] [address] [address] Forrest CarrilloNitrite Ql (U)NegativeNormalNEGATIVEThe [facility] HospitalComment on above:Performed By: #### NADIA UACSIND #### [facility] [address] [address] [address] Forrest CarrillopH (U)6.0 [pH]Normal5-9The [facility] HospitalComment on above: Performed By: #### NADIA UACSIND #### [facility] [address] [address] [address] Forrest CarrilloSPEC GRAVITY>=1.393Ijypelok4.005-<=1.025The [facility] Comment on above:Performed By: #### NADIA UACSIND #### [facility] [address] [address] [address] Forrest Xavier PROTEINNegativeNormalNEGATIVE/ TRACEThe [facility] Comment on above:Performed By: #### NADIA UACSIND #### [facility] [address] [address] [address] Forrest Dominguez MICRO INDINDICATEDNormalThe [facility] HospitalComment on above: Performed By: #### NADIA UACSIND #### [facility] [address] [address] [address] Forrest Sawyerbiledwingen Qn (U)0.2 {[place]'U}/dLNormal0.2 - 1.0The [facility] HospitalComment on above:Performed By: #### NADIA UACSIND #### [facility] [address] [address] [address] Forrest Aguirre MICROSCOPIC ONLYon 73-40-9103XVOODHGWYQTT SEENNormalNONE SEENAdams County Hospital on above:Performed By: #### NADIA UACSIND #### [facility] [address] [address] [address] Forrest Zimmer identified Cx Nom (U)NOT INDICATEDCleveland Clinic Euclid Hospital on above:Performed By: #### NADIA UACSIND #### [facility] [address] [address] [address] Forrest Trevino OX CRYSTALSFEWGlenbeigh HospitalComment on above: Performed By: #### NADIA UACSIND #### [facility] [address] [address] [address] Forrest Renteria SEENNormalNONE SEENAdams County Hospital on above:Performed By: #### NADIA UACSIND #### [facility] [address] [address] [address] Forrest Frank LM Nom (Urine sed)SEENAbnormalNONE SEENMount St. Mary HospitalCommclaren oakland on above:Performed By: #### NADIA UACSIND #### [facility] [address] [address] [address] Forrest Lancasterthelikaela cells LM Ql (Urine sed)FEWAbnormalNONE SEEN /RAREThe [facility] HospitalCommclaren oakland on above:Performed By: #### NADIA UACSIND #### [facility] [address] [address] [address] Forrest Holland SEENNormalNONE SEENMount St. Mary HospitalCommclaren oakland on above:Performed By: #### NADIA UACSIND #### [facility] [address] [address] [address] Forrest LowryEnrnpAKE4-3Ayowvw2-4Mnk [facility] on above:Performed By: #### NADIA UACSIND #### [facility] [address] [address] [address] Forrest Bernstein SEENNormalNONE SEENThe [facility] HospitalComment on above: Performed By: #### UMICRO, UACSIND #### [facility] [address] [place], [place] [address] Dr. Forrest CarrilloGROUP B STREP CULTUREon 09-07-2021. agalactiae Ag Ql (Unsp spec) Culture Observations: NEGATIVE FOR GROUP B STREPTOCOCCUS.NormalMount St. Mary HospitalComment on above: Performed By: #### GBSCX ####[facility] [address] [place], [place] [address]WcDr. Forrest Kramer PREG BIOPHY W NON STRESSon [id number] PREG BIOPHY W NON STRESSEXAMINATION: US PREG BIOPHY W NON STRESS HISTORY: [...] Electronically authenticated by: LONG PIERRE Date: 2021-09-06 18:45NormFirelands Regional Medical CenterUS PREG GROWTHon [id number] PREG GROWTHEXAMINATION: US PREG GROWTH HISTORY: Gestational diabetes mellitus [...] Electronically authenticated by: LONG PIERRE Date: 2021-09-06 18:39[facility] PREG BIOPHY W NON STRESSon [id number] PREG BIOPHY W NON STRESSEXAMINATION: US PREG BIOPHY W NON STRESS HISTORY: [...] Electronically authenticated by: LONG PIERRE Date: 2021-08-30 16:38[facility] PREG BIOPHY W NON STRESSon [id number] PREG BIOPHY W NON STRESSEXAMINATION: US PREG BIOPHY W NON STRESS HISTORY: [...] Electronically authenticated by: LONG PIERRE Date: 2021-08-23 21:32[facility] PREG BIOPHY W NON STRESSon [id number] PREG BIOPHY W NON STRESSEXAMINATION: US PREG BIOPHY W NON STRESS HISTORY: [...] Electronically authenticated by: RUBI JACKSON Date: 2021-08-19 15:25[facility] PREG BIOPHY W NON STRESSon [id number] PREG BIOPHY W NON STRESSEXAMINATION: US PREG BIOPHY W NON STRESS HISTORY: [...] Electronically authenticated by: RUBI JACKSON Date: 2021-08-16 16:08[facility] PREG BIOPHY W NON STRESSon [id number] PREG BIOPHY W NON STRESSEXAMINATION: US PREG BIOPHY W NON STRESS HISTORY: [...] Electronically authenticated by: LONG PIERRE Date: 2021-08-10 13:01[facility] PREG GROWTHon [id number] PREG GROWTHEXAMINATION: US PREG GROWTH HISTORY: Gestational diabetes mellitus [...] Electronically authenticated by: LONG PIERRE Date: 2021-08-09 17:19Glenbeigh HospitalUS PREG GROWTHon [id number] PREG GROWTHEXAMINATION: US PREG GROWTH HISTORY: Gestational diabetes mellitus [...] Electronically authenticated by: RUBI JACKSON Date: 2021-07-15 07:12[facility] ACOG PANEL 2: 30 to 67on 06-20-2021..NormalThe [facility]erry HospitalComment on above:Result Comment: Performed at: WBPerformed By: #### SUSANA ZUNIGA #### [facility] [address] [place] [address] Dr. Forrest Elliott Gdln ACOG Jbexjcc23-76LytpejTduGlenbeigh HospitalComment on above:Performed By: #### SUSANA ZUNIGA #### [facility] [address] [place] [address] Dr. Forrest CarrilloDIAGNOSIS:CommentCleveland Clinic Euclid Hospital on above: Result Comment: NEGATIVE FOR INTRAEPITHELIAL LESION OR MALIGNANCY. Performed at: WBPerformed By: #### UMMARLEENRO, UACSIND #### [facility] [address] [place] [address] Dr. Forrest CarrilloHPV AptimaNegativeNormalNegativeThe [facility] on above:Result Comment: This nucleic acid amplification test detects fourteen high-risk HPV types (16,18,31,33,35,39,45,51,52,56,58,59,66,68) without differentiation. Performed at: =GPerformed By: #### JOERO, UACSIND #### [facility] [address] [place] [address] Dr. Forrest CarrilloMethodology:CommentCleveland Clinic Euclid Hospital on above: Result Comment: This liquid based ThinPrep(R) pap test was screened with the use of an image guided system. Performed at: WBPerformed By: #### UMICRO, UACSIND #### [facility] [address] [place] [address] Dr. Forrest CarrilloNote:CommentCleveland Clinic Euclid Hospital on above:Result Comment: The Pap smear is a screening test designed to aid in the detection of premalignant and malignant conditions of the uterine cervix. It is not a diagnostic procedure and should not be used as the sole means of detecting cervical cancer. Both false-positive and false-negative reports do occur. . Performed at: WBPerformed By: #### UMICRO, UACSIND #### [facility] [address] [place] [address] Dr. Forrest CarrilloPerformed by:CommentNoAdams County Hospital on above: Result Comment: Alem Fox Skin Lap Bonder (ASCP) Performed at: WBPerformed By: #### UMICRO, UACSIND #### [facility] [address] [place] [address] Dr. Forrest CarrilloSpecimen adequacy:CommentNormalThe Michelle HospitalComment on above:Result Comment: Satisfactory for evaluation. Endocervical and/or squamous metaplastic cells (endocervical component) are present. Performed at: WBPerformed By: #### UMICRO, UACSIND #### [facility] [address] [address] [address] Forrest CarrilloCHLAMYDIA/GONOCOCCUS BRIANNA (SWAB/URINE/PAPon 62-57-7283Ieaacaosw trachomatis, NAANegativeNormalNegativeThe [facility] HospitalComment on above: Performed By: #### POCGLUC #### [facility] [address] [address] [address] Forrest CarrilloNeisseria gonorrhoeae, NAANegativeNormalNegativeMount St. Mary HospitalComment on above:Performed By: #### POCGLUC #### [facility] [address] [address] [address] Forrest CarrilloVAGINITIS/VAGINOSIS DNA PROBEon 13-56-2041Oatboww speciesNegative NormalNegativeMount St. Mary HospitalComment on above:Performed By: #### VAGINT ####[facility] [address] [address]Dr. Forrest CarrilloGardnerella vaginalisNegativeNormalNegativeMount St. [facility] Hospital Comment on above:Performed By: #### VAGINT ####[facility] [address] [address]Dr. Forrest CarrilloTrichomonas vaginalisNegative NormalNegativeMount St. Mary HospitalComment on above:Performed By: #### VAGINT ####[facility] [address] [address]Dr. Forrest CarrilloCOVID Quick Testingon 74-56-9780IkcuxnAaopfzfpVvwfc 10BestThings Other Vital Signs Date TimeVital SignValuePerforming VmaxvkhzwFgbqamgu66-90-3773 15:26-0400Body .18 cmLauro Gates MD Work Phone: [facility]09-18-2025 15:26-0400 Body mass index (BMI) [Ratio]48 kg/m2Lauro Gates MD Work Phone: [phone]09-18-2025 15:26-0400 Body ximjuztlbgi63.5 [degF]Lauro Gates MD Work Phone: [phone])[address] [place], [place] 2065309-18-2025 15:26-0400 Body yjqmuv653.25 kgLauro Gates MD Work Phone: [phone]09-18-2025 15:26-0400 Diastolic blood akknmdew65 mm[Hg]Lauro Gates MD Work Phone: [phone])[address] [place], [place] 2065309-18-2025 15:26-0400 Heart rate89 /minLauro Gates MD Work Phone: [phone])[address] [place], [place] 2065309-18-2025 15:26-0400 Respiratory rate22 /minLauro Gates MD Work Phone: [phone] [place], [place] 2065309-18-2025 15:26-0400 SaO2% (BldA) [Mass fraction]95 %Lauro Gates MD Work Phone: [phone] [place], [place] 2065309-18-2025 15:26-0400 Systolic blood ysttvfde741 mm[Hg]Lauro Gates MD Work Phone: [phone])[address] [place], [place] 2065312-17-2024 14:57-0500 Body axmpqf669.2 cmLauro Gates MD Work Phone: [phone] [place], [place] [address]Jnzxmsduua76-75-7292 14:57-0500Body mass index (BMI) [Ratio]49.34 kg/m2Lauro Gates MD Work Phone: [phone] NorthWsbwycxxlv82-97-6540 14:57-0500Body temperature 97.81 [degF]Lauro Gates MD Work Phone: [phone] NorthUoduavtzwh27-89-0198 14:57-0500Body .88 kgLauro Gates MD Work Phone: [phone] [place], [place] [address]Tsjgnojqrs59-23-7444 14:57-0500Diastolic blood mm[Hg]Lauro Gates MD Work Phone: [facility] NorthHayfkvrtso99-63-0932 14:57-0500Heart pfhe800 /min Lauro Gates MD Work Phone: [facility] NorthWxbkkzgkqe79-12-5165 14:57-0500Respiratory rate22 /minLauro Gates MD Work Phone: 1(065)079-[address] [place], [place] [address]Llcmxjelgl29-05-3189 14:57-9898LvR9% (BldA) [Mass fraction]98 %Lauro Gates MD Work Phone: [facility] NorthPthiiexviq62-13-2816 14:57-0500Systolic blood ghxlfqlu131 mm[Hg]Lauro Gates MD Work Phone: [address] [address]Igrwpievou12-98-8882 15:26-0400Body zljmar791.2 cmLauro Gates MD Work Phone: [phone] [place], [place] [address]Fhmqejifay31-59-5964 15:26-0400Body mass index (BMI) [Ratio]49.65 kg/m2Lauro Gates MD Work Phone: [address] [address]Mpqwhqwgli92-97-1679 15:26-0400Body temperature 97.11 [degF]Lauro Gates MD Work Phone: [address] [address]Idcxrxjwpr21-08-9188 15:26-0400Body .79 kgLauro Gates MD Work Phone: [address] [address]Aygfbqzjjd15-34-9903 15:26-0400Diastolic blood lsoprikg95 mm[Hg]Lauro Gates MD Work Phone: [address] [place] [address]Bjbbzullep63-88-7870 15:26-0400Heart rate82 /min Lauro Gates MD Work Phone: [address] [place] [address]Zfaqfztrwt77-43-2312 15:26-0400Respiratory rate20 /minLauro Gates MD Work Phone: [address] [place] [address]Dfrravhwdy49-38-7307 15:26-2250PeM4% (BldA) [Mass fraction]99 %Lauro Gates MD Work Phone: [facility] NorthZpqmbfpaqe38-44-8194 15:26-0400Systolic blood ehwyonjm015 mm[Hg]Lauro Gates MD Work Phone: [facility] NorthAsmwxkjacc79-23-8525 16:32-0500Body wxthee847.91 cmPrem[facility]02-13-2024 16:32-0500Body mass index (BMI) [Ratio]51.5 kg/w8VragevyvyPremier Health [facility]02-13-2024 16:32-0500Body wcqhybfnwuq69.9 [degF][facility]02-13-2024 16:32-0500Body tjwrqa749.19 kgPrem[facility] Health [facility]02-13-2024 16:32-0500Heart rate 93 /[facility]02-13-2024 16:32-0500Respiratory rate18 /[facility]02-13-2024 16:32-8461DyE4% (BldA) [Mass fraction]97 %[facility]03-20-2023 19:50-0400Body height 168.91 Kimi Mendez Other [employer] Other 03-20-2023 19:50-0400Body mass index (BMI) [Ratio] 51.82 kg/c9Qbjvsrdelmar Mendez Other [employer] Other 03-20-2023 19:50-0400Body gtcpeymgunq02.5 [degF]Marhsa Vanessa Other [employer] Other 03-20-2023 19:50-0400Body jahvxq132.87 kgPadelmar Mendez Other [employer] Other 03-20-2023 19:50-0400Respiratory rate18 /minMarsha Mendez Other [employer] Other 03-20-2023 19:50-7983ZmU2% (BldA) [Mass fraction]97 % Marsha Mendez Other [employer] Other 03-11-2023 13:30-0500Body .91 cmStepsamuel Esqueda Other [employer] Other 03-11-2023 13:30-0500Body mass index (BMI) [Ratio] 51.51 kg/u4Ucswbspefshirley Esqueda Other [employer] Other 03-11-2023 13:30-0500Body lmrzckfderv16.6 [degF] Latisha Esqueda Other [employer] Other 03-11-2023 13:30-0500Body gqfzay231.97 kgStshirley Esqueda Other [employer] Other 03-11-2023 13:30-0500Diastolic blood vgismezg407 mm[Hg]Latisha Esqueda Other [employer] Other 03-11-2023 13:30-0500Respiratory rate8 /minStepsamuel Esqueda Other [employer] Other 03-11-2023 13:30-5640BvL6% (BldA) [Mass fraction]95 % Latishasamuel Esqueda Other [employer] Other 03-11-2023 13:30-0500Systolic blood vvinzhvv322 mm[Hg] Latisha Esqueda Other [employer] Other 09-30-2021 13:00-0400Body krnuci744.91 cmSurbano Esqueda Other [employer] Other 09-30-2021 13:00-0400Body mass index (BMI) [Ratio] 45.94 kg/p0CwogplojfLatisha Cantuault Other [employer] Other 09-30-2021 13:00-0400Body bngbkgmeotx57.8 [degF] Latisha Dheeraj Other [employer] Other 09-30-2021 13:00-0400Body yvekzn207.09 kgStshirley Cantuault Other [employer] Other 09-30-2021 13:00-0400Respiratory rate18 /minSurbano Cantuault Other [employer] Other 09-30-2021 13:00-4230CrF5% (BldA) [Mass fraction]98 % Latisha Dheeraj Other [employer] Other Encounters Encounter DateEncounter TypeCare ProviderFacilityStart: 10-23-2024 End: 59-43-6008kdtxnbhawcRsvj Naderer MD Work Phone: [facility] Work Phone: Start: 10-23-2024 End: 55-36-0271Lfqfcsm encounter procedureLauro Gates MD-[facility] Work Phone: Start: 07-08-2024 End: 54-37-7922Tjknpoqwi Result EncounterGeneric External Data ProviderNOMS External Department UnsolicitedStart: 07-08-2024 End: 08-66-8906Zhldgqzac Result EncounterGeneric External Data ProviderNOMS External Department UnsolicitedStart: 05-23-2024 End: 56-70-0673Bnoaeompg Result EncounterLauro Gates MD Work Phone: noms External Department UnsolicitedStart: 05-23-2024 End: 10-84-1504Ydxvursuf Result EncounterLauro Gates MD Work Phone: noms External Department UnsolicitedStart: 04-21-2024 End: 34-90-7487vyrutxkydyHHKB NADERERNot AvailableStart: 04-13-2024 End: 75-06-1912BvfntaIrlv Naderer MD Work Phone: noms CWM FMComment on above:Type 2 diabetes mellitus with hyperglycemia (CMS/HCC)Start: 01-22-2024 End: 42-22-6062Psxpxl outpatient visit 25 minutesLauro Gates MD Work Phone: noms CWM FMComment on above:Type 2 diabetes mellitus with hyperglycemia, with long-term current use of insulin (CMS/HCC) (Primary Dx); Essential hypertension, benign (CMS/HCC); Class 3 severe obesity due to excess calories with serious comorbidity and body mass index (BMI) of45.0 to 49.9 in adult (CMS/HCC); Acute bronchitis due to other specified organismsStart: 01-22-2024 End: 46-30-3718qpkraolzmiIDKR NADERERNot AvailableStart: 01-22-2024 End: 40-95-9657Tlrzui flowsNat Gates MD Work Phone: noms CWM FMStart: 01-22-2024 End: 75-17-0779Zsubgd Ryann Gates MD Work Phone: noms CWM FMStart: 10-26-2023 End: 77-17-1582Duhczywkn Result EncounterLauro Gates MD Work Phone: noms External Department UnsolicitedStart: 10-26-2023 End: 84-48-2902Ihyukozfk Result EncounterLauro Gates MD Work Phone: noms External Department UnsolicitedStart: 10-23-2023 End: 06-53-7529zppcivebpgEDHI NADERERNot AvailableStart: 10-23-2023 End: 48-39-4148Xawhox outpatient visit 15 minutesLauro Gates MD Work Phone: noms CWM FMComment on above:Type 2 diabetes mellitus with hyperglycemia, with long-term current use of insulin (CMS/HCC) (Primary Dx); Essential hypertension, benign (CMS/HCC); Immunodeficiency due to conditions classified elsewhere (CMS/HCC)Start: 10-23-2023 End: 07-40-3544Jqspny flowsNat Gates MD Work Phone: noms CW FMStart: 10-23-2023 End: 09-75-5471Fomine flowsNat Gates MD Work Phone: noms CW FMStart: 07-05-2023 End: 59-66-4521exvklyoaxvEWBV NADERERNot AvailableStart: 19-71-1969Totciqf encounter procedureLauro Gates MD Work Phone: noms HealthcareStart: 03-20-2023 End: 54-41-6752nsmufjqqezIuhjcklodGrant Hospital Work Phone: Start: 03-20-2023 End: 25-28-3639Lzeaewg encounter procedureD[facility] Work Phone: Start: 05-01-2022 End: 76-49-2730vyioyhxeziQA DAVID V WESTFacility:L6Tezuf: 43-81-4741Ijptwlqoz for general adult medical examination without abnormal findingsDR LAURO GATES [facility]tart: 04-26-2022 End: 65-12-0075nkxomgugqxGS DAVID V WESTFacility:G3Llbks: 04-24-2022 End: 69-92-6487ofcycdrywyHcvdrw Dymond Other [employer] Other Start: 72-38-3433Lvyhjy outpatient visit 15 minutes Marsha MendezFPG Urgent Care ClydeStart: 04-20-2022 End: 31-27-8449jokmdbxexmYN LAURO A NADERERFacility:C6Youbu: 04-20-2022 End: 86-80-3163Cwuvuixuf for general adult medical examination without abnormal findingsDR LAURO A NADERERFacility:D3Jlogb: 04-15-2022 End: 19-73-7183rcsmxkbljzImxviodtz Breault Other [employer] Other Start: 48-80-4746Zjcaos outpatient visit 15 minutes Latisha EsquedaFPG Urgent Care ClydeStart: 04-12-2022 End: 71-01-9661brszbvcupuSI RUBI V WESTFacility:M6Xmzwe: 04-06-2022 End: 58-90-1359gcbeyemivoNM RUBI V WESTFacility:W3Pgffu: 03-23-2022 End: 33-74-1093bgciqkheooCG RUBI V WESTFacility:D1Mtqqx: 03-17-2022 End: 35-63-2169cxewsmaoghDW RUBI V WESTFacility:X3Liwti: 03-08-2022 End: 20-50-3801rlohyhtlujLW RUBI V WESTFacility:Y8Wtqek: 03-03-2022 End: 83-43-9047robxzklwhjGP RUBI V WESTFacility:A6Kqjaw: 01-18-2022 End: 64-62-6248eutmoggtydAX LAURO A NADERERFacility:K0Rvffb: 12-19-2021 End: 36-47-5499pppvxejuhwYA LAURO A NADERERFacility:R6Ahchb: 12-05-2021 End: 78-46-4551drmjzhlhirSZ LAURO A NADERERFacility:V7Qiyhc: 09-12-2021 End: 79-26-3559Wxvbajsynv and management of inpatientDR DAYSI DIETZ .Facility: Start: 09-09-2021 End: 05-73-2165xxjxaqokdvGP MARY ARREDONDO .Facility:S0Mcvsg: 09-07-2021 End: 27-02-1383beqtkpvxqqZB DAYSI MIRELA .Facility:L0Dulvn: 09-06-2021 End: 49-55-1034rfoajcbmmuWF DAYSI MIRELA .Facility:R2Svyag: 09-02-2021 End: 63-43-1745tepnzobjneDM NONE LISTED REQUESTFacility:W3Xoism: 08-30-2021 End: 38-20-1048rmfgfhbcogWT NONE LISTED REQUESTFacility:I2Zxclw: 08-26-2021 End: 06-26-2678ddjtlkpcdzKH DAYSI MIRELA .Facility:S0Wqobf: 08-23-2021 End: 51-04-8794dsryemvtcnTL DAYSI MIRELA .Facility:O1Mukln: 08-19-2021 End: 38-52-4759agpgznuhngRC DAYSI MIRELA .Facility:Y8Ktqjp: 08-16-2021 End: 52-49-0351fxretqxlopEM DAYSI MIRELA .Facility:Y5Zoiky: 08-12-2021 End: 38-42-2342mzmnljygrmNP NONE LISTED REQUESTFacility:O7Vvcjl: 08-09-2021 End: 59-83-1286rntlbkkyfpTT NONE LISTED REQUESTFacility:U1Atnkq: 07-14-2021 End: 49-04-5381fmbukmoduoQZ DAYSI MIRELA .Facility:K9Wuiqo: 06-14-2021 End: 77-99-7979ycvntwaupvHA DAYSI MIRELA .Facility:D5Gopbo: 11-04-2020(URG) Urgent Care VisitStephanie DheerajFPG Urgent Care ClydeStart: 02-28-2017 End: 18-71-2062HctqbkkkohXXAPZ FAZIOFacility:[facility] Procedures DateProcedureProcedure DetailPerforming ClinicianStart: 17-67-7794OYI PREG QUANT HCGCorey Mirela DO Work Phone: Start: 97-75-1399HCB HEMOGLOBIN E1XYkpsLauro Gates MD Work Phone: Start: 67-02-9770RWZ MICROALBUMIN, RAND URLauro Gates MD Work Phone: Start: 21-49-2288VyzozoxvtpwZmtr Naderer MD Work Phone: Start: 20-96-5710Mgohlkie of Amniotic Fluid, Therapeutic from Products of Conception, Via Natural or Artificial OpeningDR DAYSI DIETZ .Start: 99-64-0286Uuxmqomnlt of Products of Conception, Low Cervical, Open ApproachDR DAYSI DIETZ .Start: 34-05-7338Jsgziaietxwu of Other Hormone into Peripheral Vein, Percutaneous ApproachDR DAYSI DIETZ . Plan of Treatment DateCare ActivityDetailAuthorStart: 29-79-5770Xoqgu screening for protein Diabetes: Urine Protein ScreeningNOMS HealthcareStart: 10-23-2024 End: 32-98-6034Ipdlgli encounter trflxpduu60/18/2025 3:00 PM EDT Office Visit [facility] [address] [place] [address] Lauro Gates MD [address] [place] [address] [facility] FMStart: 28-75-6814Quxklqia screeningDiabetes: Retinopathy ScreeningNOAK HealthcareStart: 97-11-7345Kqdbcsrck vaccinationInfluenza Vaccine (Season Ended)NOMS HealthcareStart: 07-22-2024 End: 80-62-8993Jhcnwcs encounter cimmwclcu57/17/2025 11:20 AM EDT Office Visit [facility] [address] [phone] Daysi Dietz, DO [address] [place] [address] N[facility]S B[facility] OBStart: 51-68-7551Mibztdhjtj A1c measurement Diabetes: Hemoglobin Q9JIEMI HealthcareStart: 04-21-2024 End: 91-89-0971Aesulph encounter szygqutlh83/17/2025 2:45 PM EDT [facility] [address] [place] [address] Lauro Gates MD [address] [place] [address] [facility] FMStart: 01-22-2024 End: 31-87-9358Kshgslp encounter procedureNOMS HEALTH SYSTEM FMComment on above:Arrived Start: 34-07-9588Bhkdbxjvpm A1c measurementDiabetes: Hemoglobin G1IUQKE HealthcareStart: 10-23-2023 End: 93-45-9175Kxrsbby, urine, randomAlbumin, urine, random Lab Routine Type 2 diabetes mellitus with hyperglycemia, with long-term current use of insulin ([facility]) Expected: 10/23/2023 (Approximate), Expires: 10/22/2024[facility] Work Phone: Comment on above:Expected: 10/23/2023 (Approximate), Expires: 10/22/2024Start: 10-23-2023 End: 00-58-0357Ssqfitbzxo A1c/Hemoglobin.total in BloodHemoglobin A1c Lab Routine Type 2 diabetes mellitus with hyperglycemia, with long-term current use of insulin ([facility]) Expected: 10/23/2023 (Approximate), Expires: 10/22/2024NOAK HealthcareComment on above:Expected: 10/23/2023 (Approximate), Expires: 10/22/2024Start: 67-76-8605Pjjtjkjzq vaccinationInfluenza Vaccine (#1)[facility] HealthcareStart: 31-11-5123Wkumxukwk for malignant neoplasm of breastMammogram [facility] HealthcareStart: 21-32-5015Cruob screening for proteinDiabetes: Urine Protein ScreeningST. GEORGE [facility] HealthcareStart: 56-71-8856Tzsbngwhgc A1c measurement Diabetes: Hemoglobin N7WJNRS HealthcareStart: 19-95-4997Qlbxcvegx for malignant neoplasm of cervixNOMS HealthcareStart: 52-01-1261Qbxgxwgvb for malignant neoplasm of cervixPap SmearDayton Osteopathic Hospital Immunizations Immunization DateImmunizationNotesCare JrwcfjvpJlhekpeq89-27-9640ormytwgdn virus vaccine, unspecified formulationAurora West Hospital Kody ARMSTRONG Work Phone: [facility] Payers DatePayer CategoryPayerPolicy [id number] Health Insurance [id number] FRONTPATH [id number] 2022[facility] [phone] [address] [place] [id number] 2.16.840.1.799156.3.57[id number] 2.0.1.866966.3.57[id number] 2.840.1.266923.3.579.[id number] 2.0.1.724091.3.57[id number] 2.0.1.357145.3.579.2.94020-44-4297Awmkzwq0662337 2.0.1.181114.3.579.[id number] 2.16840.1.939920.3.579.2.66139-01-2168Svcckhz0672245 2.16840.1.039701.3.579.2.73634-73-2527Wynrrry1651519 2.16840.1.838317.3.579.2.54942-70-5016Vifwhhp0750411 2.16840.1.640857.3.579.2.91112-78-8637Jrmqagp9120521 2.16.840.1.220224.3.579.2.79491-31-7727Oamfnyg7078047 2.840.1.894057.3.579.2.43943-38-1109Xyespsi3411247 2.840.1.491268.3.579.2.20104-05-1111Tsmdgje5728768 2.0.1.217545.3.579.2.99773-75-6713Ikmhatz3507817 2.0.1.103240.3.57[id number] 2..1.295090.3.579.2.63289-00-0692Aqivokp1055593 2.0.1.010311.3.579.2.17854-00-4281Zqwysky7252775 2..1.059346.3.579.2.57325-87-9962Mfbdaua1859077 2..1.347981.3.579.2.85883-43-6654Ltvzuqx9462877 2..1.087842.3.579.2.66801-99-6261Zcpjzgc6704362 2..1.615956.3.579.2.06503-62-1670Awkouuc8496664 2.0.1.907786.3.579.2.09620-64-7854Iwamfcn8144520 2.0.1.860439.3.579.2.82561-73-7310Nwklsuj9600602 2.0.1.164432.3.579.2.89945-03-9564Krquedj9229766 2.0.1.866689.3.579.2.32918-26-6637Lyolbcm0276104 2.16.840.1.653496.3.579.2.57487-41-2903Exlxsbc4312246 2.16.840.1.049332.3.579.2.459047-86-4506Ceovufz5597116 2.16.840.1.055152.3.579.2.931161-87-1005Hgdhqtw2056242 2..0.1.751809.3.579.2.178637-69-5562Dzbibox8510280 2.16.0.1.719707.3.579.2.475350-43-0631Codgrmx738323466 2.160.1.927711.19 54-10-5455NsoksytBO79518171 2.0.1.071527.27427937-12-8711Dlrdrvn56491268 2..1.881823.19Self-paySelf [id number]-[id number] [id number] / [id number]-[id number] [facility] [address] [id number] Social History DateTypeDetailFacilityUnknown if ever smokedZeppelin Other Start: 10-23-2023 End: 91-07-6244Zlv [facility]igned At [facility] CenterX[facility] [employer] Other Start: 03-20-2023 End: 36-15-2136Gcuqhcj smoking status NHISNever smoked tobacco (finding) Centervilletart: 08-84-5697Klb Assigned At BirthFemale Centervilletart: 67-38-7196Ieermfs use and exposure Smokeless tobacco non-userNOMS HealthcareStart: 10-23-2023 End: 00-37-6085Xlvbmeu of Social functionNOMS HealthcareStart: 51-79-0958Osz assigned at birthNot on fileNOMS HealthcareHow often do you need to have someone help you when you read instructions, pamphlets, or other written material from your doctor or pharmacy [SILS]NeverNOMS HealthcareDo you belong to any clubs or organizations such as samaritan groups, unions, fraternal or athletic groups, or school groups?NoNOMS HealthcareAre you now , , , , never or living with a partner?MarriedNOMS HealthcareHow often to you have a drink containing alcohol?NeverNOMS HealthcareDo you feel stress - tense, restless, nervous, or anxious, or unable to sleep at night because yourmind is troubled all the time - these days [OSQ]To some extentNOMS Healthcare(I/We) worried whether (my/our) food would run out before (I/we) got money to buy more.Never trueNOMS HealthcareSexFemale (finding)[facility] Medical Equipment Procedure CodeEquipment CodeEquipment Original TextEquipment IdentifierDatesUSE TO 1 STRIP 3 TIMES A [id number]: 49-62-1776Jwyul Sugar Diagnostic (Blood Glucose Test) stripStart: 10-23-2024 Clinical Notes 11-04-2020 to 01-22-2024 Note Date & ZrwoBytwKxwfphhz83-79-4305 History of Present illness Narrative* Lauro Gates MD - 01/22/2024 3:31 PM ESTAssociated Problem(s): Acute bronchitis due to other specified [...] if no better or worse call office. * Lauro Gates MD - 01/22/2024 3:30 PM ESTAssociated Problem(s): Type 2 diabetes mellitus with hyperglycemia, with long-term current use of insulin ([facility]) Reports BS improved and due for A1C. Increase ozempic. Stick to ADA diet and limit carbs. * Lauro Gates MD - 01/22/2024 3:30 PM ESTAssociated Problem(s): Essential hypertension, benign ([facility]) BP improved and monitor PRN. Discussed DASH diet. * Lauro Gates MD - 01/22/2024 3:30 PM ESTAssociated Problem(s): Class 3 severe obesity due to excess calories with serious comorbidity and body mass index (BMI) of 45.0 to 49.9 in adult ([facility]) Weight down 2 pounds since last visit. Increase ozempic. * Lauro Gates MD - 01/22/2024 2:45 PM EST Images from the original note were not included. Subjective Patient ID: Mickie Brower is a 43 y.o. female who presents [...] kids with cough. BS stable and improving. EgvlZ9W 7.5. Notice BS starts to go up [...] Items Addressed This Visit Essential hypertension, benign ([facility]) BP improved and monitor PRN. Discussed DASH diet. Type 2 diabetes mellitus with hyperglycemia, with long-term current use of insulin ([facility]) - Primary Reports BS improved and due for A1C. Increase ozempic. Stick to ADA diet and limit carbs. Relevant Medications Semaglutide, 2 MG/DOSE, (Ozempic, 2 MG/DOSE,) 8 MG/3ML solution pen-injector Class 3 severe obesity due to excess calories with serious comorbidity and body mass index (BMI) of45.0 to 49.9 in adult ([facility]) Weight down 2 pounds since last [...] (Levaquin) 750 MG tablet documented in this encounterCox NorthJtciwcdmeo73-57-0195 History of Present illness Narrative* Lauro Gates MD - 10/23/2023 3:41 PM EDTAssociated Problem(s): Type 2 diabetes mellitus with hyperglycemia, with long-term current use of insulin ([facility]) Reports BS improved and due for A1C. Increase ozempic. Stick to ADA diet and limit carbs. * Lauro Gates MD - 10/23/2023 3:40 PM EDTAssociated Problem(s): Essential hypertension, benign ([facility]/H[facility]) BP improved and monitor BP PRN. Discussed DASH diet. * Lauro Gates MD - 10/23/2023 3:15 PM EDT Images from the original note were not included. Subjective Patient ID: Mickie Brower is a 43 y.o. female who presents for Follow-up (3m). Follow up DM and HTN. Patient feels well today. Reports BS improved and ranges 103-200 but averagesaround 160. Tries to eat well and stick [...] Items Addressed This Visit Essential hypertension, benign ([facility]) BP improved and monitor BP PRN. Discussed DASH diet. Type 2 diabetes mellitus with hyperglycemia, with long-term current use of insulin ([facility]) - Primary Reports BS improved and due for A1C. Increase ozempic. Stick to ADA diet and limit carbs. Relevant Medications semaglutide (Ozempic, 1 MG/DOSE,) 4 MG/3ML solution pen-injector Other Relevant Orders Albumin, urine, random Hemoglobin A1c documented in this encounterCox NorthSftlpyaspn50-29-9098 Evaluation note* Encounter Date Diagnosis Assessment Notes Treatment Notes Treatment Clinical Notes Apr, Left otitis media, unspecified o titis media type (ICD-10 - H66.92) Middle ear infection: adult home care material was printed Drink plenty fluids, get plenty of rest. Take the Zithromax as prescribed until gone. Take Tylenol or Motrin as needed for aches pains or fevers. Follow-up with your family physician if no improvement in 2 to 3 days [employer] Other 03-11-2023 Evaluation note* Encounter Date Diagnosis Assessment Notes Treatment Notes Treatment Clinical Notes Apr, Sore throat (ICD-10 - J02.9) Apr,Right acute otitis media (ICD-10 - H66.91)Ear infections are often a secondary infection caused from an URI, the flu or allergies. Take medication as directed. Complete all doses, even if you feel better. Tylenol or ibuprofen can help with pain. Warm pack to area for comfort helps as well. Follow up with primary care provider if no improvement of symptoms. [employer] Other 08-08-2022 NoteDISCHARGE SUMMARY DISCHARGE DATE: 09/17/2021 [...] when pain free and no longer on narcotics.[facility]08-08-2022 NoteOPERATIVE NOTE OPERATION DATE: 09/12/2021 PROCEDURE: Primary [...] ANESTHESIA: Epidural with Duramorph. SURGEON: Daysi Dietz CIGARETTE ROLLER: EMILY Sheehan URINE OUTPUT: Yellow and clear. BLOOD LOSS: 995 mL. FINDINGS: Viable infant boy. Apgars 7 at 1 and 8 [...] patient's uterus and extended laterally digitally. The infant was then delivered atraumatically after the bladder [...] to the Recovery Room in stable condition.[facility] HospitalUyznqiag39-40-3214 Evaluation note* Encounter Date Diagnosis Assessment Notes Treatment Notes Treatment Clinical Notes Oct, Contact with and (mata spected) exposure to other viral communicable diseases (ICD-10 - Z20.828) Even though COVID RAPID test is NEGATIVE, I am highly suspicious at this time you may be positive due to the symptoms. Recommend patient follow Quarantine guidelines until you follow up with PCP.. Recommend OTC medication such as Mucinex, Sea salt nasal spray, Cepecol, Tylenol, Zyrtec, as they can help with symptoms Oct,ronchitis (ICD-10 - J40) Bronchitis is inflammation of openings of lungs. It is not caused from bacteria. Antibiotics are not needed to treat this illness. Take medications as directed. Rest and increase fluid intake. Take meds with food to prevent stomach upset. Use inhaler as needed for SOB. Blood sugars may increase dueto steroid treatment so eat lower amount of carbs. Follow up with primary care provider if symptoms do not improve with treatment plan, although it may take a few weeks for the cough to go away. Oct,eft acute otitis media (ICD-10 - H66.92) Ear infections are often a secondary infection caused from an URI, the flu or allergies. Take medication as directed. Complete all doses, even if you feel better. Tylenol or ibuprofen can help with pain. Warm pack to area for comfort helps as well. Follow up with primary care provider if no improvement of symptoms. Oct,Other Additional time spent conducting pre-visit phone call, screening for symptoms, instructions on social distancing, application and removal of PPE, and cleaning of examination room, equipment and supplies was preformed. Patient education given for testing methodology and results. Patient care instructions given in writting by [facility] Care At Home document. Additional time spent conducting pre-visit phone call, screening for symptoms, instructions on social distancing, application and removal of PPE, and cleaning of examination room, equipment and supplies was preformed. Patient education given for testing methodology and results. Patient care instructions given in writting by [facility] Care At [facility] document. [employer] Other Evaluation noteNo assessment information available [facility] Work Phone: Evaluation note* Diagnosis Type 2 diabetes mellitus with hyperglycemia, with long-term current use of insulin (CMS/HCC)- Primary Essential hypertension, benign (CMS/HCC) Essential hypertension, benign Immunodeficiency due to conditions classified elsewhere (CMS/HCC) documented in this encounter [facility] HealthcareEvaluation note* Diagnosis Type 2 diabetes mellitus with hyperglycemia, with long-term current use of insulin (CMS/HCC)- Primary Annual physical exam Routine general medical examination at a health care facility Essential hypertension, benign (CMS/HCC) Essential hypertension, benign Type 2 diabetes mellitus with hyperglycemia, with long-term current use of insulin ([facility])- Primary Essential hypertension, benign ([facility]) Essential hypertension, benign Bilateral leg edema Edema Gastroesophageal reflux disease without esophagitis Esophageal reflux Morbid obesity due to excess calories ([facility]) Type 2 diabetes mellitus with hyperglycemia, with long-term current use of insulin ([facility])- Primary Essential hypertension, benign ([facility]) Essential hypertension, benign Immunodeficiency due to conditions classified elsewhere ([facility]) Type 2 diabetes mellitus with hyperglycemia, with long-term current use of insulin ([facility])- Primary Essential hypertension, benign ([facility]) Essential hypertension, benign Class 3 severe obesity due to excess calories with serious comorbidity and body mass index (BMI) of45.0 to 49.9 in adult ([facility]) Acute bronchitis due to other specified organisms documented in this encounter [facility] HealthcareEvaluation note* Diagnosis Type 2 diabetes mellitus with hyperglycemia, with long-term current use of insulin ([facility])- Primary Annual physical exam Routine general medical examination at a health care facility Essential hypertension, benign ([facility]) Essential hypertension, benign Type 2 diabetes mellitus with hyperglycemia, with long-term current use of insulin ([facility])- Primary Essential hypertension, benign ([facility]) Essential hypertension, benign Bilateral leg edema Edema Gastroesophageal reflux disease without esophagitis Esophageal reflux Morbid obesity due to excess calories ([facility]) Type 2 diabetes mellitus with hyperglycemia, with long-term current use of insulin ([facility])- Primary Essential hypertension, benign ([facility]) Essential hypertension, benign Immunodeficiency due to conditions classified elsewhere ([facility]) Type 2 diabetes mellitus with hyperglycemia, with long-term current use of insulin ([facility])- Primary Essential hypertension, benign ([facility]) Essential hypertension, benign Class 3 severe obesity due to excess calories with serious comorbidity and body mass index (BMI) of45.0 to 49.9 in adult ([facility]) Acute bronchitis due to other specified organisms Type 2 diabetes mellitus with hyperglycemia ([facility]) documented in this encounter [facility] HealthcareHistory general Narrative - Reported* Type Description Date Medical History HTN Medical HistoryhyperlipidemiaMedical HistoryDM type 2 [employer] Other History general Narrative - Reported* Type Description Date Medical History HTN Medical HistoryhyperlipidemiaMedical HistoryDM type 2Surgical History1 Hospitalization Historychild [facility] Other Reason for referral (narrative)No reason for referral information availableGe[facility] Work Phone: Summary Purpose Family History Relationship Condition Age at Onset Recorded Date/T james father Diabetes mellitus Unknown Type 2 diabetes mellitusUnknownHeart diseaseUnknownHypertensionUnknownNot SpecifiedDiabetes mellitusUnknownMalignant neoplasmUnknown Relationship Condition Age at Onset Recorded Date/T james father Diabetes mellitus Unknown Type 2 diabetes mellitusUnknownHeart diseaseUnknownHypertensionUnknownmother Diabetes mellitusUnknownMalignant neoplasmUnknown Advance Directives Advance Directive Response Recorded Date/ Time Advance Directives No November 10, 2017 1:13pm Advance Directive Response Recorded Date/ Time Advance Directives No November 10, 2017 2:13pm Chief Complaint and Reason for Visit Chief Complaint Cough Chief Complaint Admit Date Established Patient October 23, 2024 3:01pm Additional Source Comments INFORMATION SOURCE (unrecogn ized section and content) DATE CREATED AUTHOR 07/30/2017 [facility] DATE CREATED AUTHOR AUTHOR'S ORGANIZ ATION 05/16/[address] [facility] DATE CREATED AUTHOR AUTHOR'S ORGANIZ ATION 04/23/2024 [facility] EPIC REASON FOR VISIT (unrecogniz ed section and content) ReasonCommentsFollow-[id number] since end CommentsMed Refill Care Teams (unrecognized sec tion and content) Team Status: Active Member Role Status Dates Lauro Gates MD Primary Care Provider Active Team Status: Inactive Member Role Status Dates Lauro Gates MD Primary Care Provider Active S tart: March 20, 2023 End: March 20wagner Mendez NP-CAttending ProviderActiveStart: March 20, 2023 End: March 20, 2023Team MemberRelationshipSpecialtyStart DateEnd Date Lauro Gates MD [address] [place] [address] PCP - GeneralFamily Medicine03/05/23Team MemberRelationshipSpecialtyStart DateEnd Date Lauro Gates MD [address] [place] [address] PCP - GeneralFamily Medicine03/05/23Team MemberRelationshipSpecialtyStart DateEnd Date Lauro Gates MD [address] [place] [address] PCP - GeneralFamily Medicine03/05/23Team MemberRelationshipSpecialtyStart DateEnd Date Lauro Gates MD [address] [place] [address] PCP - GeneralFamily Medicine03/05/23Team MemberRelationshipSpecialtyStart DateEnd Date Lauro Gates MD [address] [place] [address] PCP - GeneralFamily Medicine03/05/23Team MemberRelationshipSpecialtyStart DateEnd Date Lauro Gates MD [address] [place] [address] PCP - GeneralFamily Medicine03/05/23Team MemberRelationshipSpecialtyStart DateEnd Date Lauro Gates MD [address] [place] [address] PCP - GeneralFamily Medicine03/05/23Team MemberRelationshipSpecialtyStart DateEnd Date Lauro Gates MD [address] [place] [address] [facility] - [facility]23 Team Status: Inactive Member Role Status Dates Lauro Gates MD Primary Care Provider Active S tart: October 23, 2024 End: October 23, 2024[facility] MDAttending ProviderActiveStart: October 23, 2024 End: October 23, 2024 Goals (unrecognized section and content) Goals may [...] BE BASED ON THE PRIMARY CLINICAL RECORDS. [facility]. provides no warranty or guarantee of the accuracy or completeness of information in this document.
[2024-11-27 12:02] LABS: Microalbum Creatinine Ratio Ur 9.7 mg/g (0.0-29.9)
== END 2024-11-27 11:04 | disposition home or self-care (01) ==
LOC: LAB 11:03
PROVIDERS: PCP Family Medicine; Visit Provider Family Medicine
DX: Z00.00 Encounter for general adult medical examination without abnormal findings (principal); E11.65 Type 2 diabetes mellitus with hyperglycemia
CPT/HCPCS: 36415; 82043; 82570; 83036